=== PATIENT | female | born 1965 | race Caucasian/White ===

== ENCOUNTER 2018-08-03 00:14 | Emergency (ER) | payer BC, OTHER ==
[~2018-08-03] VITALS: Ht 172.7 cm; Wt 112.5 kg
[~2018-08-03 00:14] MED LIST: ALB0.5V INH; ALPR.25T PO; FLT05NA16 NSEACH; METH4TAB PO; [UNRECOGNIZED DRUG - OTHER]
[2018-08-03] MEDS ORDERED: methylPREDNISolone 125 MG (Solu-MEDROL) VIAL ONE (00:17)
[2018-08-03] MEDS ORDERED: RT-ALBUTEROL/IPRATROPIUM 3 ML (DUONEB) VIAL ONE (00:18)
[2018-08-03] MEDS ORDERED: RT-ALBUTEROL SULF 2.5 MG/3 ML PRE-MIX VIAL ONE (00:27)
[2018-08-03] MEDS ORDERED: methylPREDNISolone 125 MG (Solu-MEDROL) VIAL IVP ONE (00:30)
[2018-08-03] MEDS ORDERED: RT-ALBUTEROL/IPRATROPIUM 3 ML (DUONEB) VIAL INH ONE ×2 (00:30→00:35)
[2018-08-03] MEDS ORDERED: RT-ALBUTEROL SULF 2.5 MG/3 ML PRE-MIX VIAL INH ONE (00:35)
[2018-08-03 00:36] LABS: BASOPHILS # (AUTO) 0.1 10^3/uL (0.0-0.1); BASOPHILS % (AUTO) 1 % (0-10); EOSINOPHILS # (AUTO) 0.5 10^3/uL (0.0-0.3); EOSINOPHILS % (AUTO) 5 % (0-10); HEMATOCRIT 42 % (35-52); HEMOGLOBIN 14.7 G/DL (11.5-16.0); LYMPHOCYTES # (AUTO) 4.3 X 10^3 (1.0-4.0); LYMPHOCYTES % (AUTO) 44 % (12-44); MEAN CORPUSCULAR HEMOGLOBIN 31 PG (25-34); MEAN CORPUSCULAR HGB CONC 35 G/DL (32-36); MEAN CORPUSCULAR VOLUME 88 FL (80-99); MEAN PLATELET VOLUME 11.8 FL (7.4-10.4); MONOCYTES # (AUTO) 0.7 X 10^3 (0.0-1.0); MONOCYTES % (AUTO) 7 % (0-12); NEUTROPHILS # (AUTO) 4.4 X 10^3 (1.8-7.8); NEUTROPHILS % (AUTO) 44 % (42-75); PLATELET COUNT 240 10^3/uL (130-400); RED CELL DISTRIBUTION WIDTH 13.4 % (10.0-14.5); WHITE BLOOD COUNT 9.8 10^3/uL (4.3-11.0)
[2018-08-03 00:55] LABS: ALBUMIN 4.3 GM/DL (3.2-4.5); BILIRUBIN,TOTAL 0.3 MG/DL (0.1-1.0); CALCIUM 9.6 MG/DL (8.5-10.1); CREATININE SERUM 1.04 MG/DL (0.60-1.30); POTASSIUM 3.8 MMOL/L (3.6-5.0); TOTAL PROTEIN 7.4 GM/DL (6.4-8.2)
--- NOTE | 2018-08-03 02:11 | ED Respiratory ---
General Chief Complaint: Respiratory Problems Stated Complaint: ASTHMA ATTACK Nursing Triage Note: AMBULATORY TO ED ROOM 7 WITH C/O ASTHMA ATTACK. 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 Source: patient, family Exam Limitations: no limitations History of Present Illness Date Seen by Provider: Aug 03, 2018 Time Seen by Provider: 00:18 Initial Comments This 52-year-old woman presents to the emergency room with a severe asthma attack. She is in respiratory distress with wheezing and coughing. She tried an albuterol treatment at home as well as her rescue inhaler. This did not give her relief. She has required steroid treatments in the past. She reports taking a Medrol Dosepak within the past month. However, asthma symptoms flared up again within a couple days of stopping the steroids. She does not smoke. She uses Symbicort for maintenance. She denies any fever. Allergies and Home Medications Allergies Uncoded Allergies: dRUGS THAT AFFECT SERITONIN LEVELS (Allergy, Unknown, 10/15/05) Home Medications Alprazolam 0.25 Mg Tablet, 1 TAB PO TID PRN, (Reported) Fluticasone Propionate 16 Gm [place], 2 SPRAYS NSEACH DAILY, (Reported) Methylprednisolone 4 Mg/Dose-Pack Tab.ds.pk, 0 PO UD Prescribed by: KEON VELASCO on 10/08/09 174 Prednisone 20 Mg Tab, 20 MG PO DAILY Take 3 tabs(60mg)daily,decrease by 1/2 tab(10mg)every other day. Prescribed by: SHERIN FENG on 08/03/18 0214 Patient Home Medication List Home Medication List Reviewed: Yes Review of Systems Review of Systems Constitutional: no symptoms reported EENTM: no symptoms reported Respiratory: see HPI Cardiovascular: no symptoms reported Gastrointestinal: no symptoms reported Genitourinary: no symptoms reported Musculoskeletal: no symptoms reported Skin: no symptoms reported Psychiatric/Neurological: No Symptoms Reported Hematologic/Lymphatic: No Symptoms Reported Past Yseicnw-Yndnak-Iavrys Hx Past Med/Social Hx: Reviewed Nursing Past Med/Soc Hx Patient Social History Alcohol Use: Occasionally Uses Recreational Drug Use: No Smoking Status: Former Smoker Recent Foreign Travel: No Contact w/Someone Who Travel: No Recent Infectious Disease Expo: No Recent Hopitalizations: No Seasonal Allergies Seasonal Allergies: No Past Medical History Surgeries: Yes Hysterectomy Respiratory: Yes Asthma Cardiac: Yes Hypertension Neurological: No Genitourinary: No Gastrointestinal: No Musculoskeletal: Yes Rheumatoid Arthritis Endocrine: No HEENT: No Cancer: No Psychosocial: No Integumentary: No Blood Disorders: No Physical Exam Vital Signs - First Documented 08/03/18 08/03/18 00:18 00:26 Temp 97.8 Pulse 80 Resp 22 B/P (MAP) 155/104 (121) Pulse Ox 97 O2 Delivery Nasal Cannula O2 Flow Rate 3.00 Capillary Refill : Less Than 3 Seconds Height: 5'8" Weight: 248lbs. oz. 112.788762ab; BMI Method:Stated General Appearance: WD/WN, moderate distress HEENT: PERRL/EOMI, normal ENT inspection Neck: normal inspection Respiratory: respiratory distress, accessory muscle use, wheezing Cardiovascular: regular rate, rhythm, no edema, no murmur Gastrointestinal: non tender, soft Extremities: normal inspection, no pedal edema Neurologic/Psychiatric: production lead II-XII nml as tested, no motor/sensory deficits, alert, normal mood/affect, oriented x 3 Skin: normal color, warm/dry Progress/Results/Core Measures Suspected Sepsis Recent Fever Within 48 Hours: No Infection Criteria Present: None New/Unexplained Altered Menta: No Sepsis Screen: No Definite Risk SIRS Temperature:97.8 Pulse: 80 Respiratory Rate: 22 Laboratory Tests 08/03/18 00:22: White Blood Count 9.8 Blood Pressure 155 /104 Mean: 121 Laboratory Tests 08/03/18 00:22: Creatinine 1.04, Platelet Count 240, Total Bilirubin 0.3 Results/Orders Lab Results Laboratory Tests Test 08/03/18 00:22 Range/Units White Blood Count 9.8 4.3-11.0 10^3/uL Red Blood Count 4.76 4.35-5.85 10^6/uL Hemoglobin 14.7 11.5-16.0 G/DL Hematocrit 42 35-52 % Mean Corpuscular Volume 88 80-99 FL Mean Corpuscular Hemoglobin 31 25-34 PG Mean Corpuscular Hemoglobin Concent 35 32-36 G/DL Red Cell Distribution Width 13.4 10.0-14.5 % Platelet Count 240 130-400 10^3/uL Mean Platelet Volume 11.8 H 7.4-10.4 FL Neutrophils (%) (Auto) 44 42-75 % Lymphocytes (%) (Auto) 44 12-44 % Monocytes (%) (Auto) 7 0-12 % Eosinophils (%) (Auto) 5 0-10 % Basophils (%) (Auto) 1 0-10 % Neutrophils # (Auto) 4.4 1.8-7.8 X 10^3 Lymphocytes # (Auto) 4.3 H 1.0-4.0 X 10^3 Monocytes # (Auto) 0.7 0.0-1.0 X 10^3 Eosinophils # (Auto) 0.5 H 0.0-0.3 10^3/uL Basophils # (Auto) 0.1 0.0-0.1 10^3/uL Sodium Level 141 135-145 MMOL/L Potassium Level 3.8 3.6-5.0 MMOL/L Chloride Level 104 98-107 MMOL/L Carbon Dioxide Level 22 21-32 MMOL/L Anion Gap 15 H 5-14 MMOL/L Blood Urea Nitrogen 15 7-18 MG/DL Creatinine 1.04 0.60-1.30 MG/DL Estimat Glomerular Filtration Rate 56 BUN/Creatinine Ratio 14 Glucose Level 147 H 70-105 MG/DL Calcium Level 9.6 8.5-10.1 MG/DL Corrected Calcium 9.4 8.5-10.1 MG/DL Total Bilirubin 0.3 0.1-1.0 MG/DL Aspartate Amino Transf (AST/SGOT) 19 5-34 U/L Alanine Aminotransferase (ALT/SGPT) 24 0-55 U/L Alkaline Phosphatase 90 40-136 U/L C-Reactive Protein High Sensitivity 0.42 0.00-0.50 MG/DL Total Protein 7.4 6.4-8.2 GM/DL Albumin 4.3 3.2-4.5 GM/DL My Orders Orders - SHERIN GUTIÉRREZ MD Albuterol/Ipra Inhalation Soln (Duoneb I (08/03/18 00:30) Svn Small Volume Nebulizer (08/03/18 00:21) Methylprednisolone Sod Succ (Solu-Medrol (08/03/18 00:30) Ed Iv/Invasive Line Start (08/03/18 00:22) Cbc With Automated Diff (08/03/18 00:22) Comprehensive Metabolic Panel (08/03/18 00:22) Hs C Reactive Protein (08/03/18 00:22) Chest 1 View, Ap/Pa Only (08/03/18 00:22) Methylprednisolone Sod Succ (Solu-Medrol (08/03/18 00:17) Albuterol/Ipra Inhalation Soln (Duoneb I (08/03/18 00:18) Albuterol Pre-Mix Nebs (Rt) (Proventil (08/03/18 00:27) Albuterol Pre-Mix Nebs (Rt) (Proventil (08/03/18 00:35) Albuterol/Ipra Inhalation Soln (Duoneb I (08/03/18 00:35) Svn Small Volume Nebulizer (08/03/18 01:14) Medications Given in ED Current Medications Medications Dose Ordered Sig/Gadiel Route Start Time Stop Time Status Last Admin Dose Admin Albuterol Sulfate 12.5 mg ONCE ONCE INH 08/03/18 00:35 08/03/18 02:23 DC 08/03/18 00:32 12.5 MG Albuterol/ Ipratropium 3 ml ONCE ONCE INH 08/03/18 00:30 08/03/18 00:31 DC 08/03/18 00:26 3 ML Albuterol/ Ipratropium 3 ml ONCE ONCE INH 08/03/18 00:35 08/03/18 02:23 DC 08/03/18 00:32 3 ML Methylprednisolone Sodium Succinate 125 mg ONCE ONCE IVP 08/03/18 00:30 08/03/18 00:31 DC 08/03/18 00:24 125 MG Vital Signs/I&O 08/03/18 08/03/18 08/03/18 08/03/18 00:18 00:26 00:32 02:23 Temp 97.8 97.8 Pulse 80 75 Resp 22 22 B/P (MAP) 155/104 (121) 145/99 (114) Pulse Ox 97 97 98 O2 Delivery Nasal Cannula Nasal Cannula Room Air O2 Flow Rate 3.00 3.00 Capillary Refill : Less Than 3 Seconds 2 Blood Pressure Mean: 121 Progress Note : Progress Note Patient received a DuoNeb treatment which did not resolve her wheezing and dyspnea. Solu-Medrol was administered along with an hour-long nebulizer eliza atment. This resolved her asthma attack. Disposition was discussed. Patient like to return home. [place] lives near the [place] in [place] and can present there necessary. A higher dose steroid taper was prescribed. Diagnostic Imaging Diagonstic Imaging: Xray Plain Films/CT/US/NM/MRI: chest Comments Chest x-ray viewed by me. Report not yet available. No acute abnormalities appreciated. Departure Impression Primary Impression: Asthma exacerbation Qualified Codes: J45.901 - Unspecified asthma with (acute) exacerbation Disposition: HOME, SELF-CARE Condition: Improved Departure-Patient Inst. Decision time for Depature: 02:10 Referrals: AUDREY ROSSI MD (PCP) Primary Care Physician Patient Instructions: Asthma, Adult (DC) Add. Discharge Instructions: Pickup your prednisone prescription when the pharmacy opens this morning and take the first dose promptly. Continue using your nebulizer treatments as previously prescribed. Avoid any inhaled triggers that you are aware of. Return to the emergency room or call 911 if symptoms are escalating again. Follow-up with your primary care provider soon as possible. All discharge instructions reviewed with patient and/or family. Voiced understanding. Scripts Prednisone (Prednisone) 20 Mg Tab 20 MG PO DAILY, #22 TAB Take 3 tabs(60mg)daily,decrease by 1/2 tab(10mg)every other day. Prov: SHERIN GUTIÉRREZ MD 08/03/18 Copy Copies To 1: AUDREY ROSSI MD, JOSHUA T MD Aug 03, 2018 02:11
[2018-08-03] MEDS ORDERED: PRD20T PO (02:14)
[2018-08-03 02:23] VITALS: BP 145/99
--- NOTE | 2018-08-03 07:37 | Diagnostic Imaging Report ---
INDICATION: Asthmatic attack COMPARISON: 03/29/2012 The lung volumes are stable. Mild chronic elevation of the right diaphragm. No airway thickening or evidence for bronchiectasis. No pneumothorax or pneumomediastinum. The lungs are clear. There is no failure pattern. IMPRESSION: Unremarkable frontal chest stable from priors. Dictated by: Dictated on workstation # [id number]
== END 2018-08-03 02:23 | disposition home or self-care (01) ==
LOC: EDUNIT# 00:14 → ER 00:16
DX: J45.901 Unspecified asthma with (acute) exacerbation (principal); I10 Essential (primary) hypertension; M06.9 Rheumatoid arthritis, unspecified; Z88.8 Allergy status to other drugs, medicaments and biological substances; Z79.51 Long term (current) use of inhaled steroids; Z87.891 Personal history of nicotine dependence; Z90.710 Acquired absence of both cervix and uterus
CPT/HCPCS: 36415; 71045; 80053; 85025; 86141; 94640; 96374

== ENCOUNTER 2018-11-07 21:22 | Emergency (ER) | payer BC ==
[~2018-11-07] VITALS: Ht 172 cm; Wt 113.4 kg
[~2018-11-07 21:22] MED LIST changes: +PRD20T PO
[2018-11-07] MEDS ORDERED: NS IV 1000 ML 1,000 ML IV ONE (21:37)
[2018-11-07] MEDS ORDERED: RT-ALBUTEROL/IPRATROPIUM 3 ML (DUONEB) VIAL ONE (21:38)
[2018-11-07 21:45] LABS: BASOPHILS # (AUTO) 0.1 10^3/uL (0.0-0.1); BASOPHILS % (AUTO) 1 % (0-10); EOSINOPHILS # (AUTO) 0.3 10^3/uL (0.0-0.3); EOSINOPHILS % (AUTO) 4 % (0-10); HEMATOCRIT 44 % (35-52); HEMOGLOBIN 15.1 G/DL (11.5-16.0); LYMPHOCYTES # (AUTO) 1.8 X 10^3 (1.0-4.0); LYMPHOCYTES % (AUTO) 20 % (12-44); MEAN CORPUSCULAR HEMOGLOBIN 30 PG (25-34); MEAN CORPUSCULAR HGB CONC 35 G/DL (32-36); MEAN CORPUSCULAR VOLUME 87 FL (80-99); MEAN PLATELET VOLUME 11.8 FL (7.4-10.4); MONOCYTES # (AUTO) 0.3 X 10^3 (0.0-1.0); MONOCYTES % (AUTO) 3 % (0-12); NEUTROPHILS # (AUTO) 6.6 X 10^3 (1.8-7.8); NEUTROPHILS % (AUTO) 73 % (42-75); PLATELET COUNT 257 10^3/uL (130-400); RED CELL DISTRIBUTION WIDTH 13.2 % (10.0-14.5); WHITE BLOOD COUNT 9.1 10^3/uL (4.3-11.0)
[2018-11-07] MEDS ORDERED: RT-ALBUTEROL/IPRATROPIUM 3 ML (DUONEB) VIAL INH ONE (21:45)
[2018-11-07] MEDS ORDERED: MAGNESIUM 1 GM/100 ML IVPB 100 ML IV ONE (21:45)
[2018-11-07] MEDS ORDERED: methylPREDNISolone 125 MG (Solu-MEDROL) VIAL IVP ONE (21:45)
[2018-11-07 21:54] LABS: CALCIUM 9.3 MG/DL (8.5-10.1); CREATININE SERUM 1.21 MG/DL (0.60-1.30)
--- NOTE | 2018-11-07 22:06 | ED General ---
General Chief Complaint: Respiratory Problems Stated Complaint: SOB, ASHMA Nursing Triage Note: PATIENT C/O SOB WHILE AT REST, HX OF ASTHMA, STATES O2 SATURATION AT HOME WAS 92% Nursing Sepsis Screen: No Definite Risk Source of Information: Patient Exam Limitations: No Limitations History of Present Illness Date Seen by Provider: Nov 07, 2018 Time Seen by Provider: 21:31 Initial Comments This 53-year-old woman with asthma presents to the emergency room with exacerbation of asthma with shortness of breath and wheezing. She uses nebulizer albuterol treatments and has performed 3 treatments today. Her last treatment was at 16:00. She also used desonide 2 today. She denies any fever. She has had some cough. She reports feeling ill for couple of weeks. She started a prednisolone taper today. She took 30 mg. She does have a history of significant asthma problems. She does not smoke. Allergies and Home Medications Allergies Uncoded Allergies: dRUGS THAT AFFECT SERITONIN LEVELS (Allergy, Unknown, 10/15/05) Home Medications Alprazolam 0.25 Mg Tablet, 1 TAB PO TID PRN, (Reported) Fluticasone Propionate 16 Gm [place], 2 SPRAYS NSEACH DAILY, (Reported) Methylprednisolone 4 Mg/Dose-Pack Tab.ds.pk, 0 PO UD Prescribed by: KEON VELASCO on 10/08/09 1743 Prednisone 20 Mg Tab, 20 MG PO DAILY Take 3 tabs(60mg)daily,decrease by 1/2 tab(10mg)every other day. Prescribed by: SHERIN FENG on 08/03/18 0214 Patient Home Medication List Home Medication List Reviewed: Yes Review of Systems Review of Systems Constitutional: no symptoms reported; No fever EENTM: no symptoms reported Respiratory: cough (nonproductive), short of breath Cardiovascular: no symptoms reported Gastrointestinal: no symptoms reported Genitourinary: no symptoms reported : No Musculoskeletal: no symptoms reported Skin: no symptoms reported Psychiatric/Neurological: No Symptoms Reported Hematologic/Lymphatic: No Symptoms Reported Immunological/Allergic: no symptoms reported Past Yzgtiof-Cixvmd-Wcsfcu Hx Past Med/Social Hx: Reviewed and Corrections made Patient Social History Alcohol Use: Occasionally Uses Number of Drinks Today: 1 Recreational Drug Use: No Recent Foreign Travel: No Contact w/Someone Who Travel: No Recent Infectious Disease Expo: No Recent Hopitalizations: No Physical Abuse: No Sexual Abuse: No Mistreated: No Fear: No Seasonal Allergies Seasonal Allergies: No Past Medical History Surgeries: Yes Hysterectomy Respiratory: Yes Asthma Cardiac: Yes Hypertension Neurological: No : 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 oz. 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02 4.35-5.85 10^6/uL Hemoglobin 15.1 11.5-16.0 G/DL Hematocrit 44 35-52 % Mean Corpuscular Volume 87 80-99 FL Mean Corpuscular Hemoglobin 30 25-34 PG Mean Corpuscular Hemoglobin Concent 35 32-36 G/DL Red Cell Distribution Width 13.2 10.0-14.5 % Platelet Count 257 130-400 10^3/uL Mean Platelet Volume 11.8 H 7.4-10.4 FL Neutrophils (%) (Auto) 73 42-75 % Lymphocytes (%) (Auto) 20 12-44 % Monocytes (%) (Auto) 3 0-12 % Eosinophils (%) (Auto) 4 0-10 % Basophils (%) (Auto) 1 0-10 % Neutrophils # (Auto) 6.6 1.8-7.8 X 10^3 Lymphocytes # (Auto) 1.8 1.0-4.0 X 10^3 Monocytes # (Auto) 0.3 0.0-1.0 X 10^3 Eosinophils # (Auto) 0.3 0.0-0.3 10^3/uL Basophils # (Auto) 0.1 0.0-0.1 10^3/uL Sodium Level 140 135-145 MMOL/L Potassium Level 4.0 3.6-5.0 MMOL/L Chloride Level 107 98-107 MMOL/L Carbon Dioxide Level 23 21-32 MMOL/L Anion Gap 10 5-14 MMOL/L Blood Urea Nitrogen 14 7-18 MG/DL Creatinine 1.21 0.60-1.30 MG/DL Estimat Glomerular Filtration Rate 47 BUN/Creatinine Ratio 12 Glucose Level 119 H 70-105 MG/DL Calcium Level 9.3 8.5-10.1 MG/DL C-Reactive Protein High Sensitivity 0.58 H 0.00-0.50 MG/DL My Orders Orders - SHERIN GUTIÉRREZ MD Albuterol/Ipra Inhalation Soln (Duoneb I (11/07/18 21:45) Svn Small Volume Nebulizer (11/07/18 21:37) Basic Metabolic Panel (11/07/18 21:37) Cbc With Automated Diff (11/07/18 21:37) Hs C Reactive Protein (11/07/18 21:37) Chest Pa/Lat (2 View) (11/07/18 21:37) Methylprednisolone Sod Succ (Solu-Medrol (11/07/18 21:45) Magnesium 1 Gm/100 Ml Ivpb (Magnesium Tubbs (11/07/18 21:45) Ed Iv/Invasive Line Start (11/07/18 21:37) Ns Iv 1000 Ml (Sodium Chloride 0.9%) (11/07/18 21:37) Albuterol/Ipra Inhalation Soln (Duoneb I (11/07/18 21:38) Medications Given in ED Current Medications Medications Dose Ordered Sig/Gadiel Route Start Time Stop Time Status Last Admin Dose Admin Albuterol/ Ipratropium 3 ml ONCE ONCE INH 11/07/18 21:45 11/07/18 21:46 DC 11/07/18 21:40 6 ML Magnesium Sulfate/ Dextrose 100 ml @ 100 mls/hr ONCE ONCE IV 11/07/18 21:45 11/07/18 22:44 DC 11/07/18 21:53 100 MLS/HR Methylprednisolone Sodium Succinate 125 mg ONCE ONCE IVP 11/07/18 21:45 11/07/18 21:46 DC 11/07/18 21:53 125 MG Sodium Chloride 1,000 ml @ 0 mls/hr Q0M ONCE IV 11/07/18 21:37 11/07/18 21:40 DC 11/07/18 21:53 1,000 MLS/HR Vital Signs/I&O 11/07/18 11/07/18 11/07/18 21:22 21:43 23:27 Temp 36.8 36.8 Pulse 84 105 Resp 22 20 B/P (MAP) 163/92 (115) 144/92 (115) Pulse Ox 94 97 93 O2 Delivery Room Air Room Air Capillary Refill : Less Than 3 Seconds Blood Pressure Mean: 115 Progress Note : Progress Note Patient received a Solu-Medrol injection and a DuoNeb treatment. Chest received a liter of IV fluid and 1 g of IV magnesium. This improved her symptoms significantly. Chest x-ray showed no evidence of pneumonia. Diagnostic Imaging Diagonstic Imaging: Xray Plain Films/CT/US/NM/MRI: chest Comments Chest x-ray viewed by me. Report not yet available. No acute abnormality appreciated. Departure Impression Primary Impression: Asthma exacerbation Qualified Codes: J45.901 - Unspecified asthma with (acute) exacerbation Disposition: HOME, SELF-CARE Condition: Improved Departure-Patient Inst. Decision time for Depature: 23:10 Referrals: AUDREY ROSSI MD (PCP/Family) Primary Care Physician Patient Instructions: Asthma, Adult (DC) Add. Discharge Instructions: Drink plenty of clear liquids. Use your nebulizer treatments up to every 4 hours as needed. Exercise deep breathing during the breathing treatments. Start with day 2 of your steroid taper tomorrow. Follow-up with your primary care provider as soon as possible. Consider referral to a rn medicare such as Dr. Yang. Consider adding a long-acting nondrowsy antihistamine such as Claritin (loratadine) or Zyrtec (cetirizine). Return to the emergency room if you have worsening symptoms not controlled by your medications. All discharge instructions reviewed with patient and/or family. Voiced understanding. Copy Copies To 1: AUDREY ROSSI MD, JOSHUA T MD Nov 07, 2018 22:05
[2018-11-07 23:27] VITALS: BP 144/92
--- NOTE | 2018-11-08 08:16 | Diagnostic Imaging Report ---
INDICATION: Dyspnea. PA and lateral views of the chest are obtained with comparison made to study of 08/03/2018. FINDINGS: Heart size and pulmonary vascularity are within normal limits, and the lungs are clear, bilaterally. IMPRESSION: Unremarkable chest. Dictated by: Dictated on workstation # [id number]
== END 2018-11-07 23:27 | disposition home or self-care (01) ==
LOC: EDUNIT# 21:22 → ER 21:24
DX: J45.901 Unspecified asthma with (acute) exacerbation (principal); I10 Essential (primary) hypertension; M06.9 Rheumatoid arthritis, unspecified; Z90.710 Acquired absence of both cervix and uterus; Z88.8 Allergy status to other drugs, medicaments and biological substances; Z79.51 Long term (current) use of inhaled steroids; Z79.52 Long term (current) use of systemic steroids
CPT/HCPCS: 36415; 71046; 80048; 85025; 86141; 94640

== ENCOUNTER 2019-04-13 21:11 | Inpatient (IN) | payer SELFPAY ==
[~2019-04-13] VITALS: Ht 175 cm; Wt 118.0 kg
[2019-04-13] MEDS ORDERED: ANTACID SUSP 30 ML UDC (MYLANTA) PO PRN (21:30)
[2019-04-13] MEDS ORDERED: BISACODYL 10 MG SUPP (DULCOLAX) PR PRN (21:30)
[2019-04-13] MEDS ORDERED: ACETAMINOPHEN 325 MG TABLET PO PRN (21:30)
[2019-04-13] MEDS ORDERED: MELATONIN 3 MG TABLET PO PRN (21:30)
[2019-04-13] MEDS ORDERED: ONDANSETRON 4 MG/2 ML (SDV) Z0FRAN IV PRN (21:30)
[2019-04-13] MEDS ORDERED: ENOXAPARIN 40 MG/0.4 ML (LOVENOX) SYR SC SCH (21:30)
[2019-04-13] MEDS ORDERED: ONDANSETRON 4 MG (ZOFRAN) ORAL DISSOLVE TAB PO PRN (21:30)
[2019-04-13] MEDS ORDERED: polyethylene glycoL POWDER 17 GM (MIRALAX) PACK PO PRN (21:30)
[2019-04-13 23:00] VITALS: BP 104/75
[2019-04-13] MEDS: cefTRIAXone FOR IV USE 2,000 MG in WATER (STERILE) FOR INJECTION 20 ML IV SCH (23:09)
--- NOTE | 2019-04-13 23:09 | NUR ---
ROCEPHIN GIVEN IN [facility]
[2019-04-13 23:28] LABS: BASOPHILS % (AUTO) 0 % (0-10); EOSINOPHILS # (AUTO) 0.1 10^3/uL (0.0-0.3); EOSINOPHILS % (AUTO) 0 % (0-10); HEMATOCRIT 39 % (35-52); HEMOGLOBIN 13.3 G/DL (11.5-16.0); LYMPHOCYTES # (AUTO) 1.3 X 10^3 (1.0-4.0); LYMPHOCYTES % (AUTO) 7 % (12-44); MEAN CORPUSCULAR HEMOGLOBIN 30 PG (25-34); MEAN CORPUSCULAR HGB CONC 34 G/DL (32-36); MEAN CORPUSCULAR VOLUME 90 FL (80-99); MEAN PLATELET VOLUME 12.2 FL (7.4-10.4); MONOCYTES # (AUTO) 1.4 X 10^3 (0.0-1.0); MONOCYTES % (AUTO) 8 % (0-12); NEUTROPHILS # (AUTO) 15.3 X 10^3 (1.8-7.8); NEUTROPHILS % (AUTO) 84 % (42-75); PLATELET COUNT 199 10^3/uL (130-400); RED CELL DISTRIBUTION WIDTH 13.1 % (10.0-14.5); WHITE BLOOD COUNT 18.1 10^3/uL (4.3-11.0)
[2019-04-13 23:30] VITALS: BP 103/76
--- NOTE | 2019-04-13 23:30 | NUR ---
PATIENT C/O OF SHARP PAIN 10/10 IN LEFT SHOULDER RADIATING TO MID-LEFT CHEST AND BACK. PATIENT STATES "IT MAKES IT DIFFICULT TO BREATH." EICU NOTIFIED-SEE ORDER HX. WILL CONTINUE TO MONITOR.
[2019-04-13] MEDS: LACTATED RINGERS 1,000 ML IV SCH (23:33)
[2019-04-13] MEDS: methylPREDNISolone 40 MG/ML (Solu-MEDROL) VIAL IV SCH (23:41)
[2019-04-13] MEDS: diphenhydrAMINE 50 MG/ML INJ (BENADRYL) IVP PRN (23:42)
[2019-04-13 23:45] VITALS: BP 117/67
[2019-04-13 23:51] LABS: CREATININE SERUM 1.53 MG/DL (0.60-1.30); MAGNESIUM 1.7 MG/DL (1.6-2.4); PHOSPHORUS 2.8 MG/DL (2.3-4.7); POTASSIUM 3.8 MMOL/L (3.6-5.0)
[2019-04-14] VITALS (24 sets, daily range): BP systolic 116–160; BP diastolic 67–100
[2019-04-14 00:12] LABS: BAND NEUTROPHILS 10 %; EOSINOPHILS % (MANUAL) 2 %; LYMPHOCYTES % (MANUAL) 7 %; MONOCYTES % (MANUAL) 5 %; NEUTROPHILS % (MANUAL) 76 %; RBC MORPH NORMAL
--- NOTE | 2019-04-14 00:17 | NUR ---
PT STATED THAT SHE HADN'T URINATED SINCE 7PM OF 04/12. THIS RN INSERTED [place], URINE RETURN OF 5ML OF DARK CONCENTRATED URINE. NOTIFIED E-ICU. WILL CONTINUE TO MONITOR.
[2019-04-14] MEDS ORDERED: LACTATED RINGERS 1,000 ML IV SCH (00:30)
[2019-04-14] MEDS ORDERED: RT-ALBUTEROL/IPRATROPIUM 3 ML (DUONEB) VIAL IH PRN ×2 (00:45→01:53)
[2019-04-14] MEDS: RT-ALBUTEROL/IPRATROPIUM 3 ML (DUONEB) VIAL INH SCH ×4 (02:00→20:51)
[2019-04-14 02:16] LABS: CLARITY,URINE CLOUDY; COLOR,URINE AMBER; GLUCOSE, URINE (UA) NEGATIVE (NEGATIVE); KETONES,URINE TRACE (NEGATIVE); LEUKOCYTE ESTERASE ,URINE NEGATIVE (NEGATIVE); NITRITE,URINE NEGATIVE (NEGATIVE); PH,URINE 5.5 (5-9); PROTEIN,URINE 1+ (NEGATIVE)
[2019-04-14 02:35] LABS: BACTERIA,URINE FEW /HPF; BILIRUBIN,URINE 1+ (NEGATIVE); WBC,URINE 0-2 /HPF
[2019-04-14] MEDS ORDERED: RT-ALBUTEROL/IPRATROPIUM 3 ML (DUONEB) VIAL IH SCH (03:00)
[2019-04-14 04:02] LABS: BASOPHILS % (AUTO) 0 % (0-10); EOSINOPHILS # (AUTO) 0.1 10^3/uL (0.0-0.3); EOSINOPHILS % (AUTO) 1 % (0-10); HEMATOCRIT 39 % (35-52); LYMPHOCYTES # (AUTO) 0.9 X 10^3 (1.0-4.0); LYMPHOCYTES % (AUTO) 4 % (12-44); MEAN CORPUSCULAR HEMOGLOBIN 30 PG (25-34); MEAN CORPUSCULAR HGB CONC 33 G/DL (32-36); MEAN CORPUSCULAR VOLUME 90 FL (80-99); MEAN PLATELET VOLUME 12.4 FL (7.4-10.4); MONOCYTES # (AUTO) 1.6 X 10^3 (0.0-1.0); MONOCYTES % (AUTO) 7 % (0-12); NEUTROPHILS # (AUTO) 18.3 X 10^3 (1.8-7.8); NEUTROPHILS % (AUTO) 88 % (42-75); PLATELET COUNT 191 10^3/uL (130-400); RED CELL DISTRIBUTION WIDTH 13.3 % (10.0-14.5); WHITE BLOOD COUNT 20.9 10^3/uL (4.3-11.0)
[2019-04-14 04:29] LABS: CALCIUM 8.9 MG/DL (8.5-10.1); CREATININE SERUM 1.27 MG/DL (0.60-1.30); MAGNESIUM 1.6 MG/DL (1.6-2.4); PHOSPHORUS 3.7 MG/DL (2.3-4.7); POTASSIUM 4.4 MMOL/L (3.6-5.0)
[2019-04-14] MEDS: POTASSIUM CL 10MEQ/50ML IVPB 50 ML IV SCH (05:14)
[2019-04-14] MEDS: MAGNESIUM 1 GM/100 ML IVPB 100 ML IV SCH ×3 (05:15→06:39)
[2019-04-14] MEDS: inSUlin ASPART (NovoLOG) 1 UNIT/0.01 ML (CHARGE PER UNIT) SC SCH ×5 (05:16→21:07)
[2019-04-14] MEDS: KCL 20 MEQ TAB (K-DUR) PO SCH (05:16)
[2019-04-14] MEDS: LACTATED RINGERS 1,000 ML IV SCH ×7 (05:30→21:07)
[2019-04-14] MEDS: methylPREDNISolone 40 MG/ML (Solu-MEDROL) VIAL IV SCH ×4 (05:31→16:54)
[2019-04-14] MEDS: ENOXAPARIN 40 MG/0.4 ML (LOVENOX) SYR SC SCH (05:31)
--- NOTE | 2019-04-14 05:46 | Pulmonary Consultation ---
History of Present Illness History of Present Illness Date Seen by Provider: Apr 14, 2019 Time Seen by Provider: 05:59 Date of Admission Allergies and Home Medications Allergies Uncoded Allergies: dRUGS THAT AFFECT SERITONIN LEVELS (Allergy, Unknown, 10/15/05) Home Medications Alprazolam 0.25 Mg Tablet, 1 TAB PO TID PRN, (Reported) Fluticasone Propionate 16 Gm [place], 2 SPRAYS NSEACH DAILY, (Reported) Methylprednisolone 4 Mg/Dose-Pack Tab.ds.pk, 0 PO UD Prescribed by: KEON VELASCO on 10/08/09 174 Prednisone 20 Mg Tab, 20 MG PO DAILY Take 3 tabs(60mg)daily,decrease by 1/2 tab(10mg)every other day. 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 oz. 112.692163lr; 38.53 BMI Method:Stated Exam Exam Vital Signs Date Time Temp Pulse Resp B/P (MAP) Pulse Ox O2 Delivery O2 Flow Rate FiO2 04/14/19 05:00 112 12 129/92 (104) 95 OxyMask 5.00 04/14/19 04:47 OxyMask 5.00 04/14/19 04:41 OxyMask 3.00 04/14/19 04:00 93 Nasal Cannula 2.00 04/14/19 04:00 36.3 04/14/19 04:00 109 16 135/100 (112) 93 Nasal Cannula 1.00 04/14/19 03:00 101 17 122/91 (101) 91 Nasal Cannula 1.00 04/14/19 02:10 Nasal Cannula 1.00 04/14/19 02:00 110 25 143/94 (110) 93 Nasal Cannula 2.00 3/7/20 02:00 94 Nasal Cannula 1.00 04/14/19 01:00 113 20 117/74 (88) 93 Nasal Cannula 2.00 04/14/19 01:00 115 04/14/19 00:00 115 15 122/75 (91) 94 Nasal Cannula 2.00 04/13/19 23:45 121 20 117/67 (84) 94 Nasal Cannula 2.00 04/13/19 23:30 117 20 103/76 (85) 95 Nasal Cannula 2.00 04/13/19 23:24 111 04/13/19 23:00 Nasal Cannula 2.00 04/13/19 23:00 Nasal Cannula 2.00 04/13/19 23:00 36.9 110 12 104/75 (85) 93 Nasal Cannula 2.00 I & O 04/14/19 07:00 Intake Total 1300 ml Output Total 140 ml Balance 1160 ml Height & Weight Height: 5'8" Weight: 248lbs. oz. 112.917444fx; 38.53 BMI Method:Stated Results Lab Laboratory Tests 04/13/19 23:18 04/14/19 03:43 Assessment/Plan Assessment/Plan Left PNA with sepsis with pleuritis -Continue Rocephin and azithromycin -check MRSA swab -Influenza - neg at cylinder - Repeat -[place] O cultures -IVF -Change Oxy mask to Vapotherm CP secondary to pleuritis -Troponin is negative -Add Tordol Asthma -Continue DuoNebs -Decrease solumedrol to 40mg Q 6 -Add claritin and singulair Hives - started prior to Abx -Solumedrol - continue -Add pepcid and continue Benadryl -IVF Sinus tach with dark concentrated urine -Give another liter of IVF LR -Monitor Hx RA - She is not taking anything for RA currently TL KRAMER DO Apr 14, 2019 05:46
[2019-04-14] MEDS ORDERED: fentaNYL INJECTION 100 MCG/2 ML AMP IVP PRN (06:00)
[2019-04-14] MEDS: ALPRAZolam 0.5 MG (XANAX) TAB PO PRN (06:13)
[2019-04-14] MEDS: diphenhydrAMINE 50 MG/ML INJ (BENADRYL) IVP PRN (06:13)
[2019-04-14 06:30] LABS: AMPHETAMINE SCREEN, URINE NEGATIVE (NEGATIVE); BARBITURATE SCREEN URINE NEGATIVE (NEGATIVE); BENZODIAZEPINES SCREEN URINE NEGATIVE (NEGATIVE); CANNABINOID SCREEN, URINE NEGATIVE (NEGATIVE); COCAINE SCREEN URINE NEGATIVE (NEGATIVE); METHADONE STAT NEGATIVE (NEGATIVE); METHAMPHETAMINE SCREEN URINE S NEGATIVE (NEGATIVE); OPIATE SCREEN URINE NEGATIVE (NEGATIVE); OXYCODONE STAT NEGATIVE (NEGATIVE); PROPOXYPHENE STAT NEGATIVE (NEGATIVE); TRICYCLIC ANTIDEPRESSANTS SCRE NEGATIVE (NEGATIVE)
[2019-04-14] MEDS ORDERED: FLU QUADRIvalent (5+ YOA) 2019-2020 (AFLURIA) 0.5 ML IM ONE (07:15)
[2019-04-14] MEDS: LORATADINE (CLARITIN) 10 MG TAB PO SCH (08:00)
[2019-04-14] MEDS: AZITHROMYCIN 250 MG TAB (ZITHROMAX) PO SCH (08:00)
[2019-04-14] MEDS: KETOROLAC 15 MG/ML VIAL IVP PRN ×2 (08:01→15:42)
[2019-04-14] MEDS: FAMOTIDINE 20MG/2ML IV (PEPCID) IVP SCH ×2 (08:01→21:05)
[2019-04-14] MEDS: MONTELUKAST 10 MG (SINGULAIR) TAB PO SCH (08:01)
--- NOTE | 2019-04-14 08:14 | Diagnostic Imaging Report ---
INDICATION: Dyspnea. Comparison is made with prior examination from 11/07/2018. FINDINGS: There is a left basilar pneumonia. Heart size is normal. Mediastinum is unremarkable. There is no pneumothorax. IMPRESSION: Left basilar infiltrate suspect for pneumonia. Dictated by: Dictated on workstation # [id number]
--- NOTE | 2019-04-14 13:21 | History & Physical-Hospitalist ---
History of Present Illness HPI/Chief Complaint Chika Guadarrama is a 53-year-old female with past medical history of asthma, anxiety, obesity, who presented as a transfer from [place] with severe sepsis due to pneumonia. She reports that she had been feeling very short of breath. She also reports fevers and chills. She reports rigors. She reports nausea. She has had a cough. She developed a rash with hives prior to presenting. She reports pleuritic chest pain. She has pain on the left side with every breath she takes. Source: patient Exam Limitations: no limitations Date Seen 04/14/19 Time Seen by a Provider: 08:50 Attending Physician Nikki Levy MD PCP Amarjit Mart MD Referring Physician Date of Admission Apr 13, 2019 at 22:52 Home Medications & Allergies Home Medications Reviewed patient Home Medication Reconciliation performed by pharmacy medication reconciliations ground source heat pump technician and/or nursing. Patients Allergies have been reviewed. Allergies Allergies Uncoded Allergies dRUGS THAT AFFECT SERITONIN LEVELS ( Allergy, Unknown, 10/15/05) Past Pstgzme-Gculzp-Fzouob Hx Past Med/Social Hx: Reviewed Nursing Past Med/Soc Hx Patient Social History Recent Foreign Travel: No Contact w/other who traveled: Yes Recent Hopitalizations: No Recent Infectious Disease Expo: No Seasonal Allergies Seasonal Allergies: No Past Medical History Surgeries: Hysterectomy Cardiac: Hypertension Hysterectomy Musculoskeletal: Rheumatoid Arthritis History of Blood Disorders: No Review of Systems Constitutional: chills, diaphoresis, fever, malaise, weakness Respiratory: cough, short of breath Cardiovascular: chest pain Gastrointestinal: nausea Genitourinary: no symptoms reported Musculoskeletal: neck pain Skin: rash Psychiatric/Neurological: No Symptoms Reported Physical Exam Physical Exam Vital Signs Vital Signs - First Documented 04/14/19 06:45 FiO2 40 Capillary Refill : Less Than 3 Seconds Height, Weight, BMI Height: 5'8" Weight: 248lbs. oz. 112.958840ag; 38.53 BMI Method:Stated General Appearance: Anxious, Moderate Distress, Obese HEENT: PERRL/EOMI, Pharynx Normal Neck: Normal Inspection, Supple Respiratory: Crackles, Respiratory Distress (Tachypnea) Cardiovascular: No Edema, No Murmur, Tachycardia (Regular rhythm) Gastrointestinal: Normal Bowel Sounds, Non Tender, Soft Extremity: Normal Inspection, Non Tender, No Pedal Edema Neurologic/Psychiatric: Alert, Oriented x3, No Motor/Sensory Deficits Skin: Normal Color, Warm/Dry Results Results/Procedures Labs Laboratory Tests 04/13/19 23:18 04/14/19 03:43 Patient resulted labs reviewed. Imaging: Reviewed Imaging Report Assessment/Plan Admission Diagnosis Severe sepsis Admission Status: Inpatient Order (span 2 midnights) Reason for Inpatient Admission: Severe sepsis due to pneumonia requiring supplemental oxygen and IV antibiotics Assessment and Plan Severe sepsis Community acquired pneumonia Lactic acidosis Acute kidney injury Hives Asthma Transferred from [place] Elevated WBC, tachycardic Chest x-ray with left lower lobe pneumonia Blood cultures drawn in [place] prior to transfer Started on ceftriaxone and azithromycin Currently on Vapotherm Lactic acidosis resolved Creatinine 1.53 on arrival, improving this morning 1.27 Continue IV fluids Started on IV steroids, continue Rash improving Obtain CT chest for further evaluation of severe hypoxia and pleuritic chest pain Pulmonology consulted, appreciate assistance DVT prophylaxis: Lovenox Diagnosis/Problems Diagnosis/Problems (1) Severe sepsis Status: Acute (2) Community acquired pneumonia Status: Acute Qualifiers: Laterality: left Lung location: lower lobe of lung Qualified Codes: J18.1 - Lobar pneumonia, unspecified organism (3) Lactic acidosis Status: Resolved Resolution Date/Time: 04/14/19 @ 13:26 (4) Acute kidney injury Status: Acute (5) Hives Status: Acute (6) Asthma Status: Chronic Clinical Quality Measures DVT/VTE Risk/Contraindication: Risk Factor Score Per Nursin RFS Level Per Nursing on Admit: 4+=Very High NIKKI LEVY MD Apr 14, 2019 13:21
[2019-04-14] MEDS ORDERED: IOHEXOL 350 MG/ML 100 ML (OMNIPAQUE 350) VIAL IV ONE (13:30)
[2019-04-14] MEDS ORDERED: NS 100 ML (IVPB) BAG IV ONE (13:30)
[2019-04-14] MEDS ORDERED: HOLD METFORMIN - RECEIVED CONTRAST 20 ML VIAL IV SCH (13:30)
--- NOTE | 2019-04-14 14:26 | Diagnostic Imaging Report ---
PROCEDURE: CT angiography of the chest with contrast. TECHNIQUE: Multiple contiguous axial images were obtained through the chest after uneventful bolus administration of intravenous contrast. 3D reconstructed CTA MIP acquisitions were also performed. Auto Exposure Controls were utilized during the CT exam to meet ALARA standards for radiation dose reduction. INDICATION: Respiratory failure with hypoxia. FINDINGS: There is a left basilar pneumonia. There is a left pleural effusion. There is also pneumonia in the lingula. There is minimal subsegmental atelectasis and/or pneumonitis in the right lung base. There is no pneumothorax. The thoracic aorta is normal in caliber and without evidence of dissection. The evaluation for pulmonary embolism is somewhat limited due to suboptimal bolus timing. No definitive filling defects are seen within the pulmonary arteries to suggest pulmonary embolism. There are a few subcentimeter lymph nodes in the AP window. There is marked fatty infiltration of the liver. There is also hepatomegaly. Gallbladder is surgically absent. There is no biliary ductal dilatation. The remainder of the intra-abdominal structures are unremarkable. There are degenerative changes in the spine. IMPRESSION: No evidence of aortic dissection or pulmonary embolism. Extensive lingular and left basilar pneumonia with left pleural effusion. Hepatomegaly and fatty infiltration of the liver. Minimal right basilar subsegmental atelectasis and/or pneumonitis. Dictated by: Dictated on workstation # [id number]
--- NOTE | 2019-04-14 14:40 | NUR ---
THIS NURSE NOTIFIED DR KRAMER PT IS SOA, WITH LABORED BREATHING. HER VAPOTHERM IS NOW ON 40L/50%. RR ARE IN THE HIGH 30S. PT HEART RATE IS IN THE 120-140S. PT IS LETHARGIC. ORDERS GIVEN FOR ABG NOW AND BIPAP PRN. [address] KRAMER OF ABG RESULTS. ORDERS TO KEEP PT 02 SATURATIONS ABOVE 90% ON VAPOTHERM, AND TO NOTIFY E-ICU IS PT IS REQUIRING BIPAP.
[2019-04-14 15:08] LABS: ABG BASE EXCESS -1.4 MMOL/L (-2.5-2.5); ABG OXYGEN SATURATION 92 % (94-100); ABG PCO2 43 MMHG (35-45); ABG PH 7.35 (7.37-7.43); ABG PO2 68 MMHG (79-93); ABG TCO2 24.5 MMOL/L (21.0-31.0)
[2019-04-14 15:09] LABS: ALLENS TEST YES-POS
[2019-04-14 15:10] LABS: INSPIRED O2 40; PATIENT TEMP 37.8; VENTILATOR NO
[2019-04-14] MEDS: cefTRIAXone FOR IV USE 2,000 MG in WATER (STERILE) FOR INJECTION 20 ML IV SCH (21:06)
[2019-04-15] VITALS (21 sets, daily range): BP systolic 139–169; BP diastolic 80–102
[2019-04-15] MEDS: methylPREDNISolone 40 MG/ML (Solu-MEDROL) VIAL IV SCH ×4 (00:52→16:56)
[2019-04-15] MEDS: RT-ALBUTEROL/IPRATROPIUM 3 ML (DUONEB) VIAL INH SCH (03:12)
[2019-04-15] MEDS: KETOROLAC 15 MG/ML VIAL IVP PRN ×3 (03:22→22:12)
[2019-04-15] MEDS: ALPRAZolam 0.5 MG (XANAX) TAB PO PRN ×2 (03:24→22:11)
[2019-04-15] MEDS ORDERED: RT-ALBUTEROL/IPRATROPIUM 3 ML (DUONEB) VIAL INH PRN (03:30)
[2019-04-15 03:50] LABS: BASOPHILS % (AUTO) 0 % (0-10); EOSINOPHILS % (AUTO) 0 % (0-10); HEMATOCRIT 36 % (35-52); HEMOGLOBIN 11.8 G/DL (11.5-16.0); LYMPHOCYTES # (AUTO) 1.6 X 10^3 (1.0-4.0); LYMPHOCYTES % (AUTO) 6 % (12-44); MEAN CORPUSCULAR HEMOGLOBIN 29 PG (25-34); MEAN CORPUSCULAR HGB CONC 32 G/DL (32-36); MEAN CORPUSCULAR VOLUME 91 FL (80-99); MEAN PLATELET VOLUME 12.3 FL (7.4-10.4); MONOCYTES # (AUTO) 1.7 X 10^3 (0.0-1.0); MONOCYTES % (AUTO) 6 % (0-12); NEUTROPHILS # (AUTO) 23.3 X 10^3 (1.8-7.8); NEUTROPHILS % (AUTO) 88 % (42-75); PLATELET COUNT 238 10^3/uL (130-400); RED CELL DISTRIBUTION WIDTH 13.5 % (10.0-14.5); WHITE BLOOD COUNT 26.6 10^3/uL (4.3-11.0)
[2019-04-15 04:06] LABS: CALCIUM 9.3 MG/DL (8.5-10.1); CREATININE SERUM 0.98 MG/DL (0.60-1.30); MAGNESIUM 2.4 MG/DL (1.6-2.4); PHOSPHORUS 3.6 MG/DL (2.3-4.7); POTASSIUM 4.5 MMOL/L (3.6-5.0)
[2019-04-15] MEDS: LACTATED RINGERS 1,000 ML IV SCH ×3 (05:34→23:42)
[2019-04-15] MEDS: POTASSIUM CL 10MEQ/50ML IVPB 50 ML IV SCH (06:36)
[2019-04-15] MEDS: MAGNESIUM 1 GM/100 ML IVPB 100 ML IV SCH (06:36)
[2019-04-15] MEDS: KCL 20 MEQ TAB (K-DUR) PO SCH (06:37)
[2019-04-15] MEDS: ENOXAPARIN 40 MG/0.4 ML (LOVENOX) SYR SC SCH (06:45)
--- NOTE | 2019-04-15 07:14 | Pulmonary Progress Note ---
Subjective Time Seen by a Provider: 08:07 Sepsis Event Evaluation Height, Weight, BMI Height: 5'8" Weight: 248lbs. oz. 112.753125pz; 38.53 BMI Method:Stated Focused Exam Lactate Level 04/13/19 23:18: Lactic Acid Level 1.66 Exam Exam Vital Signs Date Time Temp Pulse Resp B/P (MAP) Pulse Ox O2 Delivery O2 Flow Rate FiO2 04/15/19 06:00 105 23 144/91 (108) 94 Vapotherm 60.00 04/15/19 05:00 112 22 139/89 (106) 94 Vapotherm 60.00 04/15/19 05:00 35.9 04/15/19 04:00 90 Vapotherm 40.00 40 04/15/19 04:00 112 19 150/92 (111) 94 Vapotherm 60.00 04/15/19 03:48 Vapotherm 60.00 04/15/19 03:22 93 Vapotherm 60 04/15/19 03:13 NIV Bilevel 45.00 04/15/19 03:13 112 33 97 60.00 04/15/19 03:00 112 25 95 NIV Bilevel 65.00 04/15/19 01:00 112 24 160/100 (120) 94 NIV Bilevel 65.00 04/15/19 00:57 112 04/15/19 00:00 120 24 169/96 (120) 95 NIV Bilevel 65.00 04/15/19 00:00 36.0 04/15/19 00:00 90 NIV CPAP 65 04/14/19 23:00 122 22 160/93 (115) 94 NIV Bilevel 65.00 04/14/19 22:15 126 24 98 60.00 04/14/19 22:10 NIV Bilevel 65.00 04/14/19 22:00 131 27 145/87 (106) 94 Vapotherm 40.00 60.00 04/14/19 21:55 37.6 04/14/19 21:00 123 22 147/87 (107) 92 Vapotherm 40.00 60.00 04/14/19 20:51 93 Vapotherm 40.00 50 04/14/19 20:00 90 Vapotherm 40.00 40 04/14/19 20:00 124 16 122/67 (85) 93 Vapotherm 40.00 60.00 04/14/19 19:00 125 25 140/91 (107) 90 Vapotherm 40.00 60.00 04/14/19 18:59 125 04/14/19 18:00 130 31 142/81 (101) 91 Vapotherm 40.00 60.00 04/14/19 17:00 135 18 121/84 (96) 92 Vapotherm 40.00 60.00 04/14/19 16:00 138 28 132/71 (91) 91 Vapotherm 40.00 60.00 04/14/19 15:49 90 Vapotherm 40.00 60 04/14/19 15:00 140 27 145/80 (101) 90 Vapotherm 40.00 60.00 04/14/19 14:40 89 Vapotherm 40.00 50 04/14/19 14:20 Vapotherm 40.00 50.00 04/14/19 14:00 134 36 138/92 (107) 91 Vapotherm 40.00 40.00 04/14/19 14:00 37.8 04/14/19 13:00 126 31 141/85 (103) 92 Vapotherm 40.00 40.00 04/14/19 12:31 121 04/14/19 12:00 37.4 04/14/19 12:00 124 22 119/68 (85) 92 Vapotherm 40.00 40.00 04/14/19 12:00 90 Vapotherm 40.00 40 04/14/19 11:23 Vapotherm 40.00 40.00 04/14/19 11:19 94 Vapotherm 40.00 40 04/14/19 11:00 107 20 127/87 (100) 90 Vapotherm 35.00 40.00 04/14/19 10:00 104 15 127/76 (93) 92 Vapotherm 35.00 40.00 04/14/19 09:42 Vapotherm 30.00 40.00 04/14/19 09:00 115 29 127/68 (87) 92 Vapotherm 20.00 40.00 04/14/19 08:00 90 Vapotherm 25.00 40 04/14/19 08:00 37.1 04/14/19 08:00 118 35 122/75 (91) 91 Vapotherm 20.00 40.00 I & O 04/15/19 07:00 Intake Total 3200 ml Output Total 1405 ml Balance 1795 ml Height & Weight Height: 5'8" Weight: 248lbs. oz. 112.127023xj; 38.53 BMI Method:Stated General Appearance: Anxious, Moderate Distress, Obese HEENT: PERRL/EOMI, Pharynx Normal Neck: Normal Inspection, Supple Respiratory: Crackles, Respiratory Distress (Tachypnea) Cardiovascular: No Edema, No Murmur, Tachycardia (Regular rhythm) Capillary Refill: Less Than 3 Seconds Extremity: Normal Inspection, Non Tender, No Pedal Edema Neurologic/Psychiatric: Alert, Oriented x3, No Motor/Sensory Deficits Skin: Normal Color, Warm/Dry Results Lab Laboratory Tests 04/13/19 23:18 04/14/19 03:43 04/15/19 03:30 Assessment/Plan Assessment/Plan Left PNA with sepsis with pleuritis -Continue Rocephin and azithromycin -Repeat PCT -check MRSA swab -Influenza - neg at [facility] - Repeat -[place] cultures -IVF -Change Oxy mask to Vapotherm CP secondary to pleuritis -Troponin is negative -Tordol Asthma -Continue DuoNebs -Decrease solumedrol to 40mg Q 6 -Add claritin and singulair Hives - started prior to Abx -Solumedrol - continue -Add pepcid and continue Benadryl -IVF Sinus tach with dark concentrated urine -Give another liter of IVF LR -Monitor Hx RA - She is not taking anything for RA currently TL KRAMER DO Apr 15, 2019 07:14
[2019-04-15] MEDS: RT-ALBUTEROL/IPRATROPIUM 3 ML (DUONEB) VIAL IH SCH ×5 (07:16→22:05)
[2019-04-15] MEDS: LORATADINE (CLARITIN) 10 MG TAB PO SCH (07:47)
[2019-04-15] MEDS: MONTELUKAST 10 MG (SINGULAIR) TAB PO SCH (07:49)
[2019-04-15] MEDS: FAMOTIDINE 20MG/2ML IV (PEPCID) IVP SCH ×2 (07:49→22:11)
[2019-04-15] MEDS: AZITHROMYCIN 250 MG TAB (ZITHROMAX) PO SCH (07:49)
[2019-04-15] MEDS: inSUlin ASPART (NovoLOG) 1 UNIT/0.01 ML (CHARGE PER UNIT) SC SCH ×4 (07:49→22:10)
[2019-04-15] MEDS ORDERED: CEFEPIME INJECTION 2,000 MG in WATER (STERILE) FOR INJECTION 20 ML IV ONE (09:45)
[2019-04-15] MEDS ORDERED: VANCOMYCIN INJECTION 0.1 MG in NS (IVPB) 250 ML IV SCH (09:45)
--- NOTE | 2019-04-15 09:55 | NUR ---
PTD Vancomycin - Loading dose of 2gm over 2 hours, then 1250mg every 8 hours. Trough on 04/15.
[2019-04-15] MEDS ORDERED: VANCOMYCIN 2000 MG/NS 500 ML IVPB IV NR ×2 (10:00)
[2019-04-15] MEDS: guaiFENesin/DM (ROBITUSSIN DM) 10 ML UDC PO PRN ×2 (10:53→22:22)
--- NOTE | 2019-04-15 10:53 | Diagnostic Imaging Report ---
EXAMINATION: Chest radiograph, portable AP view. DATE: 04/15/2019 4:31 AM hours. INDICATION: 53-year-old female, dyspnea. COMPARISON: CT chest April 14, 2019. Chest radiograph April 14, 2019. FINDINGS: There is airspace consolidation in the left mid and lower lung zone which is unchanged. Stable overall appearance of the cardiomediastinal silhouette. There is no identified pneumothorax. IMPRESSION: 1. Unchanged nonspecific airspace consolidation in the left mid and lower lung zone. This may reflect infiltrate, effusion, and/or atelectasis. Dictated by: Dictated on workstation # [id number]
[2019-04-15] MEDS: CEFEPIME INJECTION 1,000 MG in WATER (STERILE) FOR INJECTION 10 ML IV SCH ×2 (11:50→16:55)
--- NOTE | 2019-04-15 14:12 | Progress Note - Hospitalist ---
Subjective HPI/CC On Admission Date Seen by Provider: Apr 15, 2019 Time Seen by Provider: 09:50 Chika Guadarrama is a 53-year-old female with past medical history of asthma, anxiety, obesity, who presented as a transfer from [place] with severe sepsis due to pneumonia. She reports that she had been feeling very short of breath. She also reports fevers and chills. She reports rigors. She reports nausea. She has had a cough. She developed a rash with hives prior to presenting. She reports pleuritic chest pain. She has pain on the left side with every breath she takes. Subjective/Events-last exam She reports feeling a bit better this morning. She still feels short of breath. She has not had any fevers or chills overnight. She continues to have a cough. She denies any abdominal pain, nausea, or vomiting. She continues to have chest pain with inspiration. Focused Exam Lactate Level 04/13/19 23:18: Lactic Acid Level 1.66 Objective Exam Vital Signs Vital Signs Date Time Temp Pulse Resp B/P (MAP) Pulse Ox O2 Delivery O2 Flow Rate FiO2 04/15/19 12:00 124 26 161/92 (115) 93 Vapotherm 40.00 40.00 04/15/19 12:00 40 04/15/19 11:50 36.4 Capillary Refill : Less Than 3 Seconds General Appearance: No Apparent Distress, Obese Respiratory: No Accessory Muscle Use, No Respiratory Distress, Crackles Cardiovascular: No Edema, No Murmur, Tachycardia (Regular rhythm) Gastrointestinal: Normal Bowel Sounds, Non Tender, Soft Extremity: Normal Inspection, Non Tender, No Pedal Edema Neurologic/Psychiatric: Alert, Oriented x3, No Motor/Sensory Deficits, Normal Mood/Affect Skin: Normal Color, Warm/Dry Results/Procedures Lab Laboratory Tests 04/15/19 03:30 Patient resulted labs reviewed. Imaging: Reviewed Imaging Report Assessment/Plan Assessment and Plan Assess & Plan/Chief Complaint Severe sepsis Community acquired pneumonia Acute respiratory failure with hypoxia Asthma WBC increasing, procalcitonin increasing Requiring Vapotherm CT chest with left lingular consolidation with parapneumonic effusion Outside blood cultures with no growth to date per [facility] in [place] Started on ceftriaxone and azithromycin With worsening clinical picture, transition to vancomycin and cefepime Continue IV fluids Continue steroids Pulmonology consulted, appreciate assistance Morbid obesity Clinically significant, no acute management needs DVT prophylaxis: Lovenox Lactic acidosis, resolved Acute kidney injury, resolved Hives, resolved Diagnosis/Problems Diagnosis/Problems (1) Severe sepsis Status: Acute (2) Community acquired pneumonia Status: Acute Qualifiers: Laterality: left Lung location: lower lobe of lung Qualified Codes: J18.1 - Lobar pneumonia, unspecified organism (3) Lactic acidosis Status: Resolved Resolution Date/Time: 04/14/19 @ 13:26 (4) Acute kidney injury Status: Resolved Resolution Date/Time: 04/15/19 @ 14:11 (5) Hives Status: Resolved Resolution Date/Time: 04/15/19 @ 14:11 (6) Asthma Status: Chronic (7) Morbid obesity (8) Acute respiratory failure with hypoxia Clinical Quality Measures DVT/VTE Risk/Contraindication: Risk Factor Score Per Nursin RFS Level Per Nursing on Admit: 4+=Very High RICHY LEVY MD Apr 15, 2019 14:12
[2019-04-15] MEDS ORDERED: DOCUSATE SODIUM 100 MG (COLACE) CAP PO ONE (14:15)
[2019-04-15] MEDS ORDERED: SENNA W/DOCUSATE (SENOKOT S) TABLET PO ONE (14:15)
[2019-04-15] MEDS: FLUTICASONE NASAL SPRAY (FLONASE) 16 GM BTL NS SCH (14:53)
[2019-04-15] MEDS: VANCOMYCIN 1250 MG/NS 250 ML IVPB IV SCH ×2 (16:56)
[2019-04-15] MEDS: DOCUSATE SODIUM 100 MG (COLACE) CAP PO SCH (22:10)
[2019-04-15] MEDS: diphenhydrAMINE 25 MG TAB (BENADRYL) PO PRN (22:10)
[2019-04-15] MEDS: SENNA W/DOCUSATE (SENOKOT S) TABLET PO SCH (22:11)
[2019-04-16] VITALS (25 sets, daily range): BP systolic 141–200; BP diastolic 83–149
[2019-04-16] MEDS: CEFEPIME INJECTION 1,000 MG in WATER (STERILE) FOR INJECTION 10 ML IV SCH ×5 (00:53→23:24)
[2019-04-16] MEDS: methylPREDNISolone 40 MG/ML (Solu-MEDROL) VIAL IV SCH ×2 (00:53→08:07)
[2019-04-16] MEDS: LACTATED RINGERS 1,000 ML IV SCH ×3 (02:24→21:11)
[2019-04-16] MEDS: VANCOMYCIN 1250 MG/NS 250 ML IVPB IV SCH ×6 (02:24→17:26)
[2019-04-16] MEDS: RT-ALBUTEROL/IPRATROPIUM 3 ML (DUONEB) VIAL IH SCH ×6 (03:25→21:21)
[2019-04-16] MEDS: MAGNESIUM 1 GM/100 ML IVPB 100 ML IV SCH (03:34)
[2019-04-16] MEDS: POTASSIUM CL 10MEQ/50ML IVPB 50 ML IV SCH (03:34)
[2019-04-16] MEDS: KCL 20 MEQ TAB (K-DUR) PO SCH (03:35)
[2019-04-16 03:55] LABS: BASOPHILS % (AUTO) 0 % (0-10); EOSINOPHILS % (AUTO) 0 % (0-10); HEMATOCRIT 35 % (35-52); HEMOGLOBIN 11.7 G/DL (11.5-16.0); LYMPHOCYTES # (AUTO) 1.4 X 10^3 (1.0-4.0); LYMPHOCYTES % (AUTO) 6 % (12-44); MEAN CORPUSCULAR HEMOGLOBIN 30 PG (25-34); MEAN CORPUSCULAR HGB CONC 33 G/DL (32-36); MEAN CORPUSCULAR VOLUME 91 FL (80-99); MEAN PLATELET VOLUME 12.5 FL (7.4-10.4); MONOCYTES # (AUTO) 1.3 X 10^3 (0.0-1.0); MONOCYTES % (AUTO) 6 % (0-12); NEUTROPHILS # (AUTO) 20.6 X 10^3 (1.8-7.8); NEUTROPHILS % (AUTO) 88 % (42-75); PLATELET COUNT 234 10^3/uL (130-400); WHITE BLOOD COUNT 23.3 10^3/uL (4.3-11.0)
[2019-04-16 04:11] LABS: BUN/CREATININE RATIO 24; CALCIUM 9.4 MG/DL (8.5-10.1); CARBON DIOXIDE 24 MMOL/L (21-32); CHLORIDE 103 MMOL/L (98-107); CREATININE SERUM 0.86 MG/DL (0.60-1.30); GFR ESTIMATED > 60; GLUCOSE 258 MG/DL (70-105); MAGNESIUM 2.7 MG/DL (1.6-2.4); POTASSIUM 4.3 MMOL/L (3.6-5.0); SODIUM 137 MMOL/L (135-145)
[2019-04-16] MEDS ORDERED: DexMEDEtomidine 250 ML DRIP 250 ML IV ONE (06:01)
[2019-04-16] MEDS ORDERED: MIDAZOLAM 5 MG/5 ML (VERSED) VIAL ONE (06:01)
[2019-04-16] MEDS ORDERED: fentaNYL INJECTION 100 MCG/2 ML AMP ONE ×2 (06:01→07:01)
[2019-04-16 06:23] LABS: ALANINE AMINOTRANSFERASE 28 U/L (0-55); ALBUMIN 3.2 GM/DL (3.2-4.5); ALKALINE PHOSPHATASE 86 U/L (40-136); BILIRUBIN,TOTAL 0.3 MG/DL (0.1-1.0); BUN/CREATININE RATIO 25; CALCIUM 9.4 MG/DL (8.5-10.1); CARBON DIOXIDE 24 MMOL/L (21-32); CHLORIDE 102 MMOL/L (98-107); CREATININE SERUM 0.88 MG/DL (0.60-1.30); GFR ESTIMATED > 60; GLUCOSE 275 MG/DL (70-105); POTASSIUM 3.8 MMOL/L (3.6-5.0); SODIUM 137 MMOL/L (135-145); TOTAL PROTEIN 6.6 GM/DL (6.4-8.2)
[2019-04-16] MEDS ORDERED: LIDOCAINE 1% INJ 20 ML 20 ML VIAL ONE ×2 (06:30→06:42)
--- NOTE | 2019-04-16 07:00 | NUR ---
TIMELINE NOTE: 0530: THIS RN AND DR. KRAMER DISCUSSING PT'S CONDITION AT THIS TIME. DR. KRAMER REVIEWING PT'S CHEST X-RAY AND NOTED PNEUMOTHORAX TO PT'S LEFT LUNG. STAT CT ORDERED AND PATIENT TAKEN TO CT BY LEAD TECHNICAL ARCHITECT AND COUNSELOR CAMP. 0545: LEFT SIDED PNEUMOTHORAX NOTED ON PT'S CT PER DR. KRAMER, AND STAT CHEST TUBE RECOMMENDED. DR. KRAMER AT BEDSIDE TO DISCUSS PT'S CONDITION, AND CT FINDINGS WITH PT AND HER . ALL QUESTIONS ANSWERED AND CONSENT SIGNED. PT'S O2 ON VAPO-THERM INCREASED TO 40 L AND 100% FIO2 PER DR. KRAMER. 0600: PRECEDEX DRIP STARTED AT 1.[address] KRAMER. 0615: 250 MCG OF IV FENTANYL AND 5 MG OF IV VERSED ADMINISTERED DURING PROCEDURE. 0620: RADIOLOGIST CALLED WITH CRITICAL FINDING; DISCUSSED WITH DR. KRAMER. 0625: LA 2.75; DR. KRAMER NOTIFIED AND NEW ORDER RECEIVED FOR 1 L LR BOLUS AT THIS TIME. 0707: CHEST TUBE IN AND CONNECTED TO LOW WALL SUCTION AT THIS TIME; X-RAY HERE TO CONFIRM PLACEMENT. BED IS IN LOWEST POSITION AND CALL LIGHT IS WITHIN REACH.
--- NOTE | 2019-04-16 07:04 | Diagnostic Imaging Report ---
PROCEDURE: CT chest without contrast. TECHNIQUE: Multiple contiguous axial images were obtained through the chest without the use of intravenous contrast. Auto Exposure Controls were utilized during the CT exam to meet ALARA standards for radiation dose reduction. INDICATION: Dyspnea. Abnormal chest radiograph. COMPARISON: CT dated 04/14/2019 FINDINGS: Since the previous exam, there has been interval development of large left-sided hydropneumothorax. As a result, there is increased atelectasis involving both the left upper and lower lobes. Evaluation of the left upper lobe again demonstrates dense consolidation of the lingula admixed with areas of rounded lucency concerning for cavitation. Findings could be on the basis of bronchopleural fistula. There is no large effusion or pneumothorax on the right. Evaluation of the lung sarah on the right is degraded by motion artifact, but no other cavitary lesions are seen. Cardiomediastinal structures show normal heart size. There is no large pericardial effusion. No abnormal mediastinal or axillary adenopathy is seen. Evaluation for hilar adenopathy is suboptimal given lack of intravenous contrast. Osseous structures show no acute abnormalities. No lytic or blastic lesions are seen. Included portions of the upper abdomen show a hypodense appearance to the liver consistent with hepatic steatosis. IMPRESSION: 1. Interval development of moderate left-sided hydropneumothorax. 2. Reidentification of dense consolidation of the left upper lobe. Note is, however, also made of multiple areas of well-circumscribed lucency concerning for cavitary infection or mass. Interval development of left-sided hydropneumothorax may be on the basis of underlying bronchopleural fistula. 3. Hepatic steatosis. Results were called to patient's nurse in the ICU by Dr. Jaquez at 0700 hours on 04/16/2019. Dictated by: Dictated on workstation # [id number]
--- NOTE | 2019-04-16 07:11 | Diagnostic Imaging Report ---
INDICATION: Dyspnea COMPARISON: 04/15/2019 FINDINGS: Single frontal radiographic view of the chest was obtained and demonstrates interval development of large left-sided pneumothorax. Cardiomediastinal silhouette is heavily obscured, but cardiomediastinal structures remain midline. Right lung is relatively clear. No large effusion or pneumothorax seen on the right. Osseous structures show no acute abnormalities. IMPRESSION: 1. Interval development of large left-sided pneumothorax. This was identified by the patient's primary care team and subsequently treated prior to dictation of this exam. Dictated by: Dictated on workstation # [id number]
[2019-04-16] MEDS ORDERED: fentaNYL INJECTION 100 MCG/2 ML AMP IVP PRN (08:00)
[2019-04-16] MEDS ORDERED: MIDAZOLAM 5 MG/5 ML (VERSED) VIAL IVP ONE (08:00)
[2019-04-16] MEDS ORDERED: LACTATED RINGERS 1,000 ML IV SCH (08:00)
[2019-04-16] MEDS ORDERED: LACTATED RINGERS 1,000 ML IV ONE (08:00)
[2019-04-16] MEDS: ENOXAPARIN 40 MG/0.4 ML (LOVENOX) SYR SC SCH (08:01)
[2019-04-16] MEDS: inSUlin ASPART (NovoLOG) 1 UNIT/0.01 ML (CHARGE PER UNIT) SC SCH ×7 (08:07→20:37)
--- NOTE | 2019-04-16 08:08 | Progress Note - Hospitalist ---
Subjective HPI/CC On Admission Date Seen by Provider: Apr 16, 2019 Time Seen by Provider: 08:03 Chika Guadarrama is a 53-year-old female with past medical history of asthma, anxiety, obesity, who presented as a transfer from [place] with severe sepsis due to pneumonia. She reports that she had been feeling very short of breath. She also reports fevers and chills. She reports rigors. She reports nausea. She has had a cough. She developed a rash with hives prior to presenting. She reports pleuritic chest pain. She has pain on the left side with every breath she takes. Subjective/Events-last exam Pt is quite sedate following chest tube placement. at beside. No complaints or concerns at this time. Focused Exam Lactate Level 04/13/19 23:18: Lactic Acid Level 1.66 04/16/19 05:50: Lactic Acid Level 2.76*H Lactic Acid Level Laboratory Tests Test 04/16/19 05:50 Lactic Acid Level 2.76 MMOL/L (0.50-2.00) *H Objective Exam Vital Signs Vital Signs Date Time Temp Pulse Resp B/P (MAP) Pulse Ox O2 Delivery O2 Flow Rate FiO2 04/16/19 07:47 36.6 04/16/19 06:00 108 30 187/123 (144) 93 Vapotherm 40.00 50.00 04/16/19 04:00 40 Capillary Refill : Less Than 3 Seconds General Appearance: No Apparent Distress, Obese, Other (drowsy) Respiratory: No Respiratory Distress, Other (bilateral breath sounds, chest tube in place) Cardiovascular: Regular Rate, Rhythm, No Murmur Gastrointestinal: Normal Bowel Sounds, Soft Neurologic/Psychiatric: Other (drowsy but arouses to verbal stimuli easily) Results/Procedures Lab Laboratory Tests 04/16/19 03:20 04/16/19 05:50 Patient resulted labs reviewed. Imaging: Reviewed Imaging Report Assessment/Plan Assessment and Plan Assess & Plan/Chief Complaint Severe sepsis Community acquired pneumonia Acute respiratory failure with hypoxia Spontaneous Pneumothorax Asthma WBC trended down slightly today - Chest tube placed by Dr Yang this AM Remains on Vapotherm CT chest with left lingular consolidation with parapneumonic effusion Outside blood cultures with no growth to date per [facility] in [place] Continue on vancomycin and cefepime Continue steroids Pulmonology consulted, appreciate assistance Lactic acidosis - Worse this AM - Bolus ordered - Trend - No hypotension Hyperglycemia -SSI -likely due to steroids Morbid obesity Clinically significant, no acute management needs DVT prophylaxis: Lovenox Acute kidney injury, resolved Hives, resolved Diagnosis/Problems Diagnosis/Problems (1) Essential (primary) hypertension Status: Chronic (2) Spontaneous pneumothorax Status: Acute (3) Acute respiratory failure with hypoxia Status: Acute (4) Acute kidney injury Status: Resolved Resolution Date/Time: 04/15/19 @ 14:11 (5) Hives Status: Resolved Resolution Date/Time: 04/15/19 @ 14:11 (6) Morbid obesity (7) Severe sepsis Status: Acute (8) Community acquired pneumonia Status: Acute Qualifiers: Laterality: left Lung location: lower lobe of lung Qualified Codes: J18. 1 - Lobar pneumonia, unspecified organism (9) Lactic acidosis Status: Resolved Resolution Date/Time: 04/14/19 @ 13:26 (10) Asthma Status: Chronic Qualifiers: Asthma severity: moderate Asthma persistence: persistent Asthma complication type: uncomplicated Qualified Codes: J45.40 - Moderate persistent asthma, uncomplicated (11) Hyperglycemia Status: Acute Clinical Quality Measures DVT/VTE Risk/Contraindication: Risk Factor Score Per Nursin RFS Level Per Nursing on Admit: 4+=Very High JONATHAN DANGELO MD Apr 16, 2019 08:08
[2019-04-16] MEDS ORDERED: DexMEDEtomidine 250 ML DRIP 250 ML IV SCH (08:15)
[2019-04-16] MEDS: MONTELUKAST 10 MG (SINGULAIR) TAB PO SCH (08:21)
[2019-04-16] MEDS: SENNA W/DOCUSATE (SENOKOT S) TABLET PO SCH ×2 (08:21→20:25)
[2019-04-16] MEDS: FLUTICASONE NASAL SPRAY (FLONASE) 16 GM BTL NS SCH (08:22)
[2019-04-16] MEDS: LORATADINE (CLARITIN) 10 MG TAB PO SCH (08:22)
[2019-04-16] MEDS: DOCUSATE SODIUM 100 MG (COLACE) CAP PO SCH ×2 (08:22→20:25)
[2019-04-16] MEDS: FAMOTIDINE 20MG/2ML IV (PEPCID) IVP SCH ×2 (08:24→20:25)
--- NOTE | 2019-04-16 08:26 | Diagnostic Imaging Report ---
INDICATION: Left pneumothorax Portable chest 0756 There continues to be a left pneumothorax with near complete left lower lobe atelectasis. There appears to be a thoracostomy tube projecting over the left lower chest. Right lung remains clear. IMPRESSION: There appears to have been interval placement of a left thoracostomy tube. There has been no appreciable change in the left pneumothorax or left lung atelectasis. Dictated by: Dictated on workstation # [id number]
--- NOTE | 2019-04-16 09:02 | NUR ---
PATIENT DID NOT GET HER 0600 SVN BREATHING TX DUE TO HER HAVING A PROCEDURE DONE WHEN RT CAME TO THE PATIENTS ROOM AND JUST GOT BACK SO MED WAS NON-ADMINISTERED
--- NOTE | 2019-04-16 11:20 | NUR ---
Pastoral care visit, pt was asleep, will monitor.
[2019-04-16] MEDS: diphenhydrAMINE 25 MG TAB (BENADRYL) PO PRN ×2 (12:26→17:27)
[2019-04-16] MEDS: KETOROLAC 15 MG/ML VIAL IVP PRN ×3 (12:26→23:24)
[2019-04-16] MEDS ORDERED: MELO15TA39 PO (13:43)
[2019-04-16] MEDS ORDERED: ALBU2.5V4 NEB (13:43)
[2019-04-16] MEDS ORDERED: OXYM15MI4 NSEACH (13:51)
[2019-04-16] MEDS ORDERED: MONT10TA26 PO (13:51)
[2019-04-16] MEDS ORDERED: FLUT9.9S NS (13:51)
[2019-04-16] MEDS ORDERED: LORA10TA76 PO (13:51)
--- NOTE | 2019-04-16 14:15 | NUR ---
SPOKE WITH THE PT, WENT THRU THE EXT MED HIST AND CALLED TY TO COMPLETE THE MED REC 03-13-2019 M[place]EL[place] 10MG #30/30DS PT INDICATES THIS IS THE ONLY MAINTENANCE SCRIPT SHE TAKES. SHE WAS PREVIOUSLY ON BYSTOLIC (THIS IS SHOWN ON THE EXT MED HIST) BUT DUE TO COST SHE HAS NOT BEEN TAKING IT. OTC MEDS: LINDA ZENGITIN
--- NOTE | 2019-04-16 16:24 | Diagnostic Imaging Report ---
Indication: Left pneumothorax Portable chest 4:07 PM The left pneumothorax is been partially evacuated. There is a 2 cm pneumothorax remaining at the apex. Left upper lobe is been re-aerated. There continues be some left lower lobe atelectasis. IMPRESSION: Resolving left pneumothorax. There continues be some left basilar atelectasis. Dictated by: Dictated on workstation # [id number]
[2019-04-16] MEDS ORDERED: TROUGH ORDER-PHARMACY XX NR (16:30)
--- NOTE | 2019-04-16 16:39 | Pulmonary Progress Note ---
Subjective Time Seen by a Provider: 16:39 Subjective/Events-last exam Pt is having more SOB. Sepsis Event Evaluation Height, Weight, BMI Height: 5'8" Weight: 248lbs. oz. 112.246527da; 38.53 BMI Method:Stated Focused Exam Lactate Level 04/13/19 23:18: Lactic Acid Level 1.66 04/16/19 05:50: Lactic Acid Level 2.76*H 04/16/19 07:55: Lactic Acid Level 1.02 Exam Exam Vital Signs Date Time Temp Pulse Resp B/P (MAP) Pulse Ox O2 Delivery O2 Flow Rate FiO2 04/16/19 14:39 94 Vapotherm 20.00 45 04/16/19 14:00 114 41 99 Vapotherm 20.00 45.00 04/16/19 13:00 110 16 153/86 (108) 95 Vapotherm 20.00 45.00 04/16/19 13:00 112 04/16/19 12:50 Vapotherm 20.00 45.00 04/16/19 12:00 106 36 159/90 (113) 93 Vapotherm 40.00 60.00 04/16/19 12:00 93 Vapotherm 70.00 40 04/16/19 11:14 36.6 04/16/19 11:12 92 Vapotherm 40.00 60 04/16/19 11:00 80 27 143/83 (103) 91 Vapotherm 40.00 60.00 04/16/19 10:00 79 26 145/89 (107) 90 Vapotherm 40.00 60.00 04/16/19 09:00 89 27 145/94 (111) 92 Vapotherm 40.00 60.00 04/16/19 08:15 108 187/123 04/16/19 08:00 89 32 179/120 (139) 93 Vapotherm 40.00 60.00 04/16/19 08:00 93 Vapotherm 70.00 40 04/16/19 07:47 36.6 04/16/19 07:00 88 31 169/120 (136) 91 Vapotherm 40.00 60.00 04/16/19 07:00 88 04/16/19 06:00 108 30 187/123 (144) 93 Vapotherm 40.00 50.00 04/16/19 05:00 111 25 166/120 (135) 89 Vapotherm 40.00 50.00 04/16/19 04:00 94 Vapotherm 40.00 40 04/16/19 04:00 105 22 147/94 (111) 90 Vapotherm 40.00 50.00 04/16/19 03:25 92 Vapotherm 40.00 50 04/16/19 03:00 102 20 164/110 (128) 93 Vapotherm 40.00 50.00 04/16/19 02:00 109 23 144/94 (111) 92 Vapotherm 40.00 50.00 04/16/19 01:00 111 22 141/95 (110) 90 Vapotherm 40.00 50.00 04/16/19 01:00 111 04/16/19 00:55 36.1 04/16/19 00:00 94 Vapotherm 40.00 40 04/16/19 00:00 121 23 147/102 (117) 92 Vapotherm 40.00 50.00 04/15/19 23:30 122 28 151/97 (115) 93 Vapotherm 40.00 50.00 04/15/19 22:15 124 33 93 Vapotherm 40.00 50.00 04/15/19 22:05 92 Vapotherm 40.00 50 04/15/19 22:00 121 34 150/99 (116) 89 Vapotherm 40.00 40.00 04/15/19 21:00 117 156/98 (117) 91 Vapotherm 40.00 40.00 04/15/19 20:00 94 Vapotherm 40.00 40 04/15/19 20:00 122 17 161/100 (120) 93 Vapotherm 40.00 40.00 04/15/19 20:00 36.3 04/15/19 19:21 92 Vapotherm 40.00 40 04/15/19 19:00 113 04/15/19 19:00 113 31 157/100 (119) 94 Vapotherm 40.00 40.00 04/15/19 18:00 108 13 156/97 (116) 92 Vapotherm 40.00 40.00 04/15/19 17:00 112 19 157/91 (113) 92 Vapotherm 40.00 40.00 I & O 04/16/19 07:00 Intake Total 1450 ml Output Total 2125 ml Balance -675 ml Height & Weight Height: 5'8" Weight: 248lbs. oz. 112.595833zh; 38.53 BMI Method:Stated General Appearance: Anxious, Moderate Distress, Obese HEENT: PERRL/EOMI, Pharynx Normal Neck: Normal Inspection, Supple Respiratory: Crackles, Respiratory Distress (Tachypnea) Cardiovascular: No Edema, No Murmur, Tachycardia (Regular rhythm) Capillary Refill: Less Than 3 Seconds Extremity: Normal Inspection, Non Tender, No Pedal Edema Neurologic/Psychiatric: Alert, Oriented x3, No Motor/Sensory Deficits Skin: Normal Color, Warm/Dry Results Lab Laboratory Tests 04/15/19 03:30 04/16/19 03:20 04/16/19 05:50 Assessment/Plan Assessment/Plan Left PNA with sepsis with pleuritis -Continue Rocephin and azithromycin -Repeat PCT -check MRSA swab -Influenza - neg at [place] - Repeat -[place] O cultures -IVF -Change Oxy mask to Vapotherm New spontaneous PTX -Place chest tube CP secondary to pleuritis -Troponin is negative -Tordol Asthma -Continue DuoNebs -Decrease solumedrol to 40mg Q 6 -Add claritin and singulair Hives - started prior to Abx -Solumedrol - continue -Add pepcid and continue Benadryl -IVF Sinus tach with dark concentrated urine -Give another liter of IVF LR -Monitor Hx RA - She is not taking anything for RA currently TL KRAMER DO Apr 16, 2019 16:39
--- NOTE | 2019-04-16 16:40 | Pulmonary Procedures ---
Pulmonary Procedures Date of Procedure Date of Service: Apr 16, 2019 Chest Tube : Chest Tube Position: Left (28 Canadian) Chest Tube Location: Mid-Axillary Chest Size of Canadian Tube (cm): 28 Chest Tube Procedure: betadine prep, sterile drapes applied, sterile dressing applied Anesthesia: 1% Lidocaine Volume Anesthetic (ccs): 10 Faustin of Air Edmunds: Yes Number of Attempts: 1 Tube Drainage: see nurses notes Tube Sutured to Skin: Yes Post Procedure CXR?: Yes TL KRAMER DO Apr 16, 2019 16:40
--- NOTE | 2019-04-16 21:25 | NUR ---
PT HAS BEEN RUNNING HYPERTENSIVE, LAST PRESSURE READ AT 199/119. PT DENIES ANY PAIN OR DISCOMFORT AT THIS TIME. E-ICU NOTIFIED.
[2019-04-16] MEDS ORDERED: LABETALOL HCL 20 MG/4 ML VIAL IV PRN (21:45)
[2019-04-17] VITALS (26 sets, daily range): BP systolic 143–195; BP diastolic 89–116
[2019-04-17] MEDS: VANCOMYCIN 1250 MG/NS 250 ML IVPB IV SCH ×2 (01:53)
[2019-04-17] MEDS: RT-ALBUTEROL/IPRATROPIUM 3 ML (DUONEB) VIAL IH SCH ×6 (02:14→21:38)
[2019-04-17] MEDS: ALPRAZolam 0.5 MG (XANAX) TAB PO PRN (03:13)
--- NOTE | 2019-04-17 03:42 | Pulmonary Progress Note ---
CHRISTIANO CONDE MEDICAL STUDENT 04/17/19 0342: Subjective Date Seen by a Provider: Apr 17, 2019 Time Seen by a Provider: 03:22 Subjective/Events-last exam Pt resting comfortably, sleeping at bedside. Pt reports easier breathing since chest tube was placed yesterday morning. She now notices "gurgles" from her left side when she breaths. She states her pleuritic chest pain has been well controlled with Toradol. Denies new concerns. Review of Systems General: No Chills, No Night Sweats HEENT: No Head Aches, No Visual Changes Pulmonary: No Dyspnea; Cough; No Pleuritic Chest Pain Cardiovascular: No: Palpitations, Edema Gastrointestinal: No: Nausea, Constipation Genitourinary: No Dysuria, No Frequency Neurological: No: Weakness, Confusion Sepsis Event Evaluation Height, Weight, BMI Height: 5'8" Weight: 248lbs. oz. 112.236471ui; 38.53 BMI Method:Stated Focused Exam Lactate Level 04/16/19 05:50: Lactic Acid Level 2.76*H 04/16/19 07:55: Lactic Acid Level 1.02 Exam Exam Vital Signs Date Time Temp Pulse Resp B/P (MAP) Pulse Ox O2 Delivery O2 Flow Rate FiO2 04/17/19 02:14 94 Nasal Cannula 5.00 04/17/19 02:00 101 15 188/116 (140) 93 Nasal Cannula 4.00 04/17/19 01:00 101 32 171/99 (123) 94 Nasal Cannula 4.00 04/17/19 01:00 101 04/17/19 00:00 104 32 189/112 (137) 94 Nasal Cannula 4.00 04/17/19 00:00 Nasal Cannula 4.00 04/16/19 23:00 97 31 200/116 (144) 91 Nasal Cannula 4.00 04/16/19 22:00 98 175/103 (127) 91 Nasal Cannula 4.00 04/16/19 21:58 104 26 198/121 (146) 92 Nasal Cannula 4.00 04/16/19 21:23 106 24 98 Nasal Cannula 4.00 04/16/19 21:22 97 Nasal Cannula 5.00 04/16/19 21:00 96 199/119 (145) 95 Nasal Cannula 5.00 04/16/19 20:43 99 26 171/105 (127) 99 Nasal Cannula 5.00 04/16/19 20:00 Nasal Cannula 4.00 04/16/19 20:00 108 23 183/121 (141) 100 Nasal Cannula 5.00 04/16/19 19:00 107 31 173/149 (157) 100 Nasal Cannula 5.00 04/16/19 19:00 107 04/16/19 18:52 100 Nasal Cannula 5.00 04/16/19 18:00 108 29 182/109 (133) 99 Nasal Cannula 5.00 04/16/19 17:43 Nasal Cannula 5.00 04/16/19 17:00 108 27 169/97 (121) 91 Vapotherm 20.00 45.00 04/16/19 16:00 105 28 163/92 (115) 89 Vapotherm 20.00 45.00 04/16/19 16:00 93 Vapotherm 10.00 40 04/16/19 15:00 102 26 163/93 (116) 90 Vapotherm 20.00 45.00 04/16/19 14:39 94 Vapotherm 20.00 45 04/16/19 14:00 114 41 99 Vapotherm 20.00 45.00 04/16/19 13:00 110 16 153/86 (108) 95 Vapotherm 20.00 45.00 04/16/19 13:00 112 04/16/19 12:50 Vapotherm 20.00 45.00 04/16/19 12:00 106 36 159/90 (113) 93 Vapotherm 40.00 60.00 04/16/19 12:00 93 Vapotherm 70.00 40 04/16/19 11:14 36.6 04/16/19 11:12 92 Vapotherm 40.00 60 04/16/19 11:00 80 27 143/83 (103) 91 Vapotherm 40.00 60.00 04/16/19 10:00 79 26 145/89 (107) 90 Vapotherm 40.00 60.00 04/16/19 09:00 89 27 145/94 (111) 92 Vapotherm 40.00 60.00 04/16/19 08:15 108 187/123 04/16/19 08:00 89 32 179/120 (139) 93 Vapotherm 40.00 60.00 04/16/19 08:00 93 Vapotherm 70.00 40 04/16/19 07:47 36.6 04/16/19 07:00 88 31 169/120 (136) 91 Vapotherm 40.00 60.00 04/16/19 07:00 88 04/16/19 06:00 108 30 187/123 (144) 93 Vapotherm 40.00 50.00 04/16/19 05:00 111 25 166/120 (135) 89 Vapotherm 40.00 50.00 04/16/19 04:00 94 Vapotherm 40.00 40 04/16/19 04:00 105 22 147/94 (111) 90 Vapotherm 40.00 50.00 04/16/19 03:25 92 Vapotherm 40.00 50 I & O 04/17/19 07:00 Intake Total 740 ml Output Total 2590 ml Balance -1850 ml Height & Weight Height: 5'8" Weight: 248lbs. oz. 112.381758ww; 38.53 BMI Method:Stated General Appearance: No Apparent Distress, WD/WN, Obese HEENT: PERRL/EOMI, Pharynx Normal Neck: Normal Inspection, Non Tender, Supple Respiratory: No Accessory Muscle Use, No Respiratory Distress, Crackles, Decreased Breath Sounds (Inspiratory crackles on the left, decreased breath sounds at the L apex), Inspiration, Other (L sided chest tube in place) Cardiovascular: Regular Rate, Rhythm, No Edema, No Murmur, Normal Peripheral Pulses Capillary Refill: Less Than 3 Seconds Gastrointestinal: normal bowel sounds, non tender, soft Extremity: Normal Inspection, Non Tender, No Pedal Edema Neurologic/Psychiatric: Alert, Oriented x3, No Motor/Sensory Deficits Skin: Normal Color, Warm/Dry Results Lab Laboratory Tests 04/15/19 03:30 04/16/19 03:20 04/16/19 05:50 Assessment/Plan Assessment/Plan Left PNA with sepsis with pleuritis -Continue Rocephin and azithromycin -Repeat PCT -check MRSA swab -Influenza - neg at [place] - Repeat -[place] O cultures -IVF -Change Oxy mask to Vapotherm New spontaneous PTX -Place chest tube CP secondary to pleuritis -Troponin is negative -Tordol Asthma -Continue DuoNebs -Decrease solumedrol to 40mg Q 6 -Add claritin and singulair Hives - started prior to Abx -Solumedrol - continue -Add pepcid and continue Benadryl -IVF Sinus tach with dark concentrated urine -Give another liter of IVF LR -Monitor Hx RA - She is not taking anything for RA currently TL YANG DO 04/17/19 0531: Subjective Time Seen by a Provider: 05:19 Subjective/Events-last exam Pt feels better. Exam Exam General Appearance: No Apparent Distress, WD/WN, Obese HEENT: PERRL/EOMI, Pharynx Normal Neck: Normal Inspection, Supple Respiratory: No Accessory Muscle Use, No Respiratory Distress, Crackles, Decreased Breath Sounds (Inspiratory crackles on the left, decreased breath sounds at the L apex), Inspiration Cardiovascular: Regular Rate, Rhythm, No Edema, No Murmur, Normal Peripheral Pulses Gastrointestinal: normal bowel sounds, non tender, soft Extremity: Normal Inspection, Non Tender, No Pedal Edema Neurologic/Psychiatric: Alert, Oriented x3, No Motor/Sensory Deficits Skin: Normal Color, Warm/Dry Assessment/Plan Assessment/Plan Left PNA with sepsis with pleuritis -Continue Cefepime -MRSA swab -- is negative -D/C vancomycin and continue Cefepime for now -Influenza - neg at [place] - Repeat -De [place] O cultures -IVF -Change Oxy mask to Vapotherm New spontaneous PTX -s/p chest tube -PTX is improving -Pt had over 200 cc of fluid out chest tube over last 24hours. -Will wait until there is no airleak and out put is < 100/24hours prior to pulling chest tube. -Send pleural fluid down for culture. CP secondary to pleuritis -Tordol -Add morphine Asthma -Continue DuoNebs -Add claritin and singulair Hives - resolved Sinus tach with HTN -Add Lopressor PO -Monitor Hx RA - She is not taking anything for RA currently Supervisory-Addendum Brief Verification & Attestation Participated in pt care: history Personally performed: exam, history Care discussed with: Medical Student Procedures: n/a Verification and Attestation of Medical Student E/M Service A medical student performed and documented this service in my presence. I reviewed and verified all information documented by the medical student and made modifications to such information, when appropriate. I personally performed the physical exam and medical decision making. Tl Yang, Apr 17, 2019,07:58 CHRISTIANO CONDE MEDICAL STUDENT Apr 17, 2019 03:42 TL YANG DO Apr 17, 2019 05:31
[2019-04-17 03:48] LABS: BASOPHILS % (AUTO) 0 % (0-10); EOSINOPHILS # (AUTO) 0.1 10^3/uL (0.0-0.3); EOSINOPHILS % (AUTO) 0 % (0-10); HEMATOCRIT 38 % (35-52); HEMOGLOBIN 12.3 G/DL (11.5-16.0); LYMPHOCYTES # (AUTO) 2.7 X 10^3 (1.0-4.0); LYMPHOCYTES % (AUTO) 13 % (12-44); MEAN CORPUSCULAR HEMOGLOBIN 29 PG (25-34); MEAN CORPUSCULAR HGB CONC 32 G/DL (32-36); MEAN CORPUSCULAR VOLUME 91 FL (80-99); MEAN PLATELET VOLUME 11.7 FL (7.4-10.4); MONOCYTES # (AUTO) 1.4 X 10^3 (0.0-1.0); MONOCYTES % (AUTO) 7 % (0-12); NEUTROPHILS # (AUTO) 16.7 X 10^3 (1.8-7.8); NEUTROPHILS % (AUTO) 80 % (42-75); PLATELET COUNT 263 10^3/uL (130-400); RED CELL DISTRIBUTION WIDTH 13.4 % (10.0-14.5)
[2019-04-17 04:06] LABS: BUN/CREATININE RATIO 23; CALCIUM 8.9 MG/DL (8.5-10.1); CARBON DIOXIDE 27 MMOL/L (21-32); CHLORIDE 104 MMOL/L (98-107); CREATININE SERUM 0.79 MG/DL (0.60-1.30); GFR ESTIMATED > 60; GLUCOSE 114 MG/DL (70-105); MAGNESIUM 2.3 MG/DL (1.6-2.4); PHOSPHORUS 2.4 MG/DL (2.3-4.7); POTASSIUM 3.6 MMOL/L (3.6-5.0); SODIUM 141 MMOL/L (135-145)
[2019-04-17] MEDS: POTASSIUM CL 10MEQ/50ML IVPB 50 ML IV SCH (05:24)
[2019-04-17] MEDS: MAGNESIUM 1 GM/100 ML IVPB 100 ML IV SCH (05:25)
[2019-04-17] MEDS: inSUlin ASPART (NovoLOG) 1 UNIT/0.01 ML (CHARGE PER UNIT) SC SCH ×8 (05:25→20:48)
[2019-04-17] MEDS: KCL 20 MEQ TAB (K-DUR) PO SCH (05:25)
[2019-04-17] MEDS ORDERED: hydrALAZINE (APESOLINE) 20 MG/ML VIAL IV PRN (05:30)
[2019-04-17] MEDS: ENOXAPARIN 40 MG/0.4 ML (LOVENOX) SYR SC SCH (05:48)
[2019-04-17] MEDS: LACTATED RINGERS 1,000 ML IV SCH ×3 (05:48→23:54)
[2019-04-17] MEDS: CEFEPIME INJECTION 1,000 MG in WATER (STERILE) FOR INJECTION 10 ML IV SCH ×4 (05:49→23:54)
[2019-04-17 05:50] LABS: BODY FLUID PH 7.5; BODY FLUID SOURCE THORACENTESIS
[2019-04-17 06:14] LABS: GLUCOSE,BODY FLUID 21 MG/DL
[2019-04-17 06:15] LABS: LDH,BODY FLUID 3197 U/L; TOTAL PROTEIN,BODY FLUID 2.9 G/DL
--- NOTE | 2019-04-17 09:05 | Diagnostic Imaging Report ---
EXAMINATION: Chest radiograph, portable AP view. DATE: 04/17/2019 4:31 AM hours. INDICATION: 53-year-old female, dyspnea. COMPARISON: April 16, 2019. FINDINGS: Stable overall appearance of the cardiomediastinal silhouette. Left-sided pneumothorax currently measures 7 mm from the lung apex compared to 20 mm previously. There is a small amount of gas in the left lateral chest wall. There is nonspecific airspace consolidation in the left mid and lower lung zones. There are streaky opacities in the right lung base which are increased. IMPRESSION: 1. Interval decrease in size of the left-sided pneumothorax currently measuring 7 mm from the lung apex compared to 20 mm previously. 2. Unchanged nonspecific consolidation in the left mid and lower lung zone. 3. New streaky opacities in the right lower lobe which may relate to atelectasis and/or infiltrate. Dictated by: Dictated on workstation # [id number]
[2019-04-17] MEDS: MONTELUKAST 10 MG (SINGULAIR) TAB PO SCH (09:08)
[2019-04-17] MEDS: DOCUSATE SODIUM 100 MG (COLACE) CAP PO SCH ×2 (09:08→20:48)
[2019-04-17] MEDS: meTOprolol TARTRATE 25 MG (LOPRESSOR) TABLET PO SCH ×2 (09:08→20:48)
[2019-04-17] MEDS: LORATADINE (CLARITIN) 10 MG TAB PO SCH (09:08)
[2019-04-17] MEDS: SENNA W/DOCUSATE (SENOKOT S) TABLET PO SCH ×2 (09:08→20:48)
[2019-04-17] MEDS: FAMOTIDINE 20MG/2ML IV (PEPCID) IVP SCH ×2 (09:08→20:48)
[2019-04-17] MEDS: KETOROLAC 15 MG/ML VIAL IVP PRN ×2 (09:09→16:08)
[2019-04-17] MEDS: FLUTICASONE NASAL SPRAY (FLONASE) 16 GM BTL NS SCH (09:09)
[2019-04-17 09:29] LABS: BF OTHER CELLS 4 %; BODY FLUID RBC COUNT 39050 /uL; BODY FLUID WBC TOTAL COUNT 51150 /uL; LYMPHOCYTES,BODY FLUID 4 %
[2019-04-17 09:34] LABS: BODY FLUID APPEARENCE MKD CLDY
[2019-04-17 09:38] LABS: BODY FLUID COLOR RED
--- NOTE | 2019-04-17 14:10 | Progress Note - Hospitalist ---
Subjective HPI/CC On Admission Date Seen by Provider: Apr 17, 2019 Time Seen by Provider: 09:00 Chika Guadarrama is a 53-year-old female with past medical history of asthma, anxiety, obesity, who presented as a transfer from [place] with severe sepsis due to pneumonia. She reports that she had been feeling very short of breath. She also reports fevers and chills. She reports rigors. She reports nausea. She has had a cough. She developed a rash with hives prior to presenting. She reports pleuritic chest pain. She has pain on the left side with every breath she takes. Subjective/Events-last exam Pt reports feeling better today but having back pain. No other complaints. Focused Exam Lactate Level 04/16/19 05:50: Lactic Acid Level 2.76*H 04/16/19 07:55: Lactic Acid Level 1.02 Objective Exam Vital Signs Vital Signs Date Time Temp Pulse Resp B/P (MAP) Pulse Ox O2 Delivery O2 Flow Rate FiO2 04/17/19 13:00 100 13 146/99 (115) 94 Nasal Cannula 4.00 04/17/19 11:31 36.8 04/16/19 16:00 40 Capillary Refill : Less Than 3 Seconds General Appearance: No Apparent Distress Respiratory: Lungs Clear, No Respiratory Distress, Other (chest tube) Cardiovascular: Regular Rate, Rhythm, No Murmur Gastrointestinal: Normal Bowel Sounds, Non Tender, Soft Neurologic/Psychiatric: Alert, Oriented x3, Normal Mood/Affect Results/Procedures Lab Laboratory Tests 04/17/19 03:35 Patient resulted labs reviewed. Imaging: Reviewed Imaging Report Assessment/Plan Assessment and Plan Assess & Plan/Chief Complaint Severe sepsis Community acquired pneumonia Acute respiratory failure with hypoxia Spontaneous Pneumothorax Asthma WBC trended down slightly again today - Chest tube placed by Dr Yang 04/[address] chest with left lingular consolidation with parapneumonic effusion Outside blood cultures with no growth to date per [place] [place] Continue on cefepime, vanc DC Continue steroids Pulmonology consulted, appreciate assistance Lactic acidosis, resolved Hyperglycemia -SSI -likely due to steroids - improving Morbid obesity Clinically significant, no acute management needs DVT prophylaxis: Lovenox Acute kidney injury, resolved Hives, resolved Diagnosis/Problems Diagnosis/Problems (1) Essential (primary) hypertension Status: Chronic (2) Spontaneous pneumothorax Status: Acute (3) Acute respiratory failure with hypoxia Status: Acute (4) Acute kidney injury Status: Resolved Resolution Date/Time: 04/15/19 @ 14:11 (5) Hives Status: Resolved Resolution Date/Time: 04/15/19 @ 14:11 (6) Morbid obesity (7) Severe sepsis Status: Acute (8) Community acquired pneumonia Status: Acute Qualifiers: Laterality: left Lung location: lower lobe of lung Qualified Codes: J18.1 - Lobar pneumonia, unspecified organism (9) Lactic acidosis Status: Resolved Resolution Date/Time: 04/14/19 @ 13:26 (10) Asthma Status: Chronic Qualifiers: Asthma severity: moderate Asthma persistence: persistent Asthma complication type: uncomplicated Qualified Codes: J45.40 - Moderate persistent asthma, uncomplicated (11) Hyperglycemia Status: Acute Clinical Quality Measures DVT/VTE Risk/Contraindication: Risk Factor Score Per Nursin RFS Level Per Nursing on Admit: 4+=Very High JONATHAN DANGELO MD Apr 17, 2019 14:10
--- NOTE | 2019-04-17 14:10 | NUR ---
Cm/SS visited with patient for discharge planning. The patient states that she does not currently have insurance. She did have [employer] but her lost his job in December. She verbalized that they have started to fill out the financial application through the hospital. This CM/SS asked if patient has applied for Medicaid due to her statement of not working from disability. She reports that she has not filled it out yet. CM/SS contacted Maria Alejandra from Financial Services via email to see if she would check into this. CM/SS and patient discussed other community resources and she verbalized that she gets some assistance through her [employer]aker in [place]. No other needs at this time. Will continue to follow until discharge.
--- NOTE | 2019-04-17 15:12 | Physical Therapy Evaluation ---
PT Evaluation-General Medical Diagnosis Admission Date Apr 13, 2019 at 22:52 Medical Diagnosis: PNA Onset Date: Apr 13, 2019 Therapy Diagnosis Therapy Diagnosis: impaired mobility, strength, endurance Height/Weight Height (Feet): 5 Height (Inches): 8 Weight (Pounds): 248 Precautions Precautions/Isolations: Fall Prevention, Standard Precautions Weight Bear Status Right Lower Extremity: Right Weight Bearing/Tolerated Left Lower Extremity: Left Weight Bearing/Tolerated Referral Physician: Lise Reason for Referral: Evaluation/Treatment Medical History Additional Medical History Past Medical History Surgeries: Hysterectomy Cardiac: Hypertension Hysterectomy Musculoskeletal: Rheumatoid Arthritis History of Blood Disorders: No Reviewed History: Yes Social History Home: [facility] Current Living Status: Spouse Entry Into Home: Stairs With Railing PT Steps Into Home: 3 Prior Prior Level of Function SCALE: Activities may be completed with or without assistive devices. 5-Syspcfldoz-mbzadnp completes the activity by him/herself with no assistance from a helper. 5-Set-up or Clean-up Assistance-helper sets up or cleans up; patient completes activity. Fisher assists only prior to or following the activity. 4-Supervision or Touching Assistance-helper provides verbal cues and/or touching/steadying and/or contact guard assistance as patient completes activity. Assistance may be provided throughout the activity or intermittently. 3-Partial/Moderate Assistance-helper does LESS THAN HALF the effort. Fisher lifts, holds or supports trunk or limbs, but provides less than half the effort. 2-Substantial/Maximal Assistance-helper does MORE THAN HALF the effort. Fisher lifts or holds trunk or limbs and provides more than half the effort. 5-Jqmxhzrjf-lnzjau does ALL the effort. Patient does none of the effort to complete the activity. Or, the assistance of 2 or more helpers is required for the patient to complete the activity. If activity was not attempted, code reason: 7-Patient Refused. 9-Not Applicable-not attempted and the patient did not perform the activity before the current illness, exacerbation or injury. 10-Not Attempted due to Environmental Limitations-(lack of equipment, weather restraints, etc.). 88-Not Attempted due to Medical Conditions or Safety Concerns. Bed Mobility: 6 Transfers (B,C,W/C): 6 Gait: 6 Stairs: 6 Indoor Mobility (Ambulation): Independent Stairs: Independent PT Evaluation-Current Subjective Patient in bed pre tx, agrees to PT, has some unrated pain in her left side from the chest tube. Pt/Family Goals to be independent at home Objective Patient Orientation: Person, Place, Situation Attachments: Oxygen, Gray Catheter, IV ROM/Strength ROM Lower Extremities WNL Strength Lower Extremities 4+/5 gross BLE except for hip flexion which was 4/5 bilaterally Sensory Vision: Functional Hearing: Functional Sensation Right Lower Extremit: Intact Sensation Left Lower Extremity: Intact Transfers Roll Left to Right (QC): 6 Lying to Sitting/Side of Bed(Q: 4 Sit to Stand (QC): 4 Chair/Rfz-gl-Tzvoy Xfer(QC): 4 supine to sit SBA, sit to stand and transfer (using rolling walker) SBA Assessment/Needs Patient very SOB with just sitting on the bed, needs rest break to recover, SOB after transfer and sitting in recliner. Patient's O2 stayed above 90% the whole time. Patient in recliner post tx with nurse call, phone, tray, all needs met. Rehab Potential: Fair PT Group Home Goals Face Man Goals PT Face Man Goals Time Frame: Apr 24, 2019 Roll Left & Right (QC): 6 Sit to Lying (QC): 6 Lying-Sitting on Side/Bed(QC): 6 Sit to Stand (QC): 6 Chair/Oev-gy-Iwxzm Xfer(QC): 6 Toilet Transfer (QC): 6 Walk 10 feet (QC): 4 Walk 50ft with 2 Turns (QC): 4 PT Plan Problem List Problem List: Activity Tolerance, Functional Strength, Safety, Balance, Gait, Transfer, Bed Mobility Treatment/Plan Treatment Plan: Continue Plan of Care Treatment Plan: Bed Mobility, Education, Functional Activity Kai, Functional Strength, Gait, Safety, Therapeutic Exercise, Transfers Treatment Duration: Apr 24, 2019 Frequency: 6 times per week Estimated Hrs Per Day: .25 hour per day Patient and/or Family Agrees t: Yes Safety Risks/Education Patient Education: Transfer Techniques, Correct Positioning, Safety Issues Teaching Recipient: Patient Teaching Methods: Demonstration, Discussion Response to Teaching: Reinforcement Needed Discharge Recommendations Plan Patient will perform bed mobility and transfer training, balance and endurance training, functional strengthening, stair training, gait training, and edu cation, to improve functional mobility and independence at home. Therapy Discharge Recommendati: Home & Family Time/GCodes Time In: 1455 Time Out: 1505 Total Billed Treatment Time: 10 Total Billed Treatment 1 visit EVL DIANA FRANCES PT Apr 17, 2019 15:12
--- OUTSIDE RECORDS SUMMARY | 2019-04-17 20:35 | XMS REPORT | Continuity of Care Document ---
Author Organization Unknown Address Unknown Phone Unavailable Allergies Active Description Code Type Severity Reaction Onset Reported/Identified Relationship to Patient Clinical Status Yes dRUGS THAT AFFECT SERITONIN LEVELS dRUGS THAT AFFECT SERITONIN LEVELS Unknown N/A 10/15/2005 Medications There is no data. Problems Date Dx Coded Attending Type Code Diagnosis Diagnosed By 08/03/2018 SHERIN GUTIÉRREZ MD Ot I10 ESSENTIAL (PRIMARY) HYPERTENSION 08/03/2018 SHERIN GUTIÉRREZ MD Ot J45.901 UNSPECIFIED ASTHMA WITH (ACUTE) EXACERBA 08/03/2018 SHERIN GUTIÉRREZ MD Ot M06.9 RHEUMATOID ARTHRITIS, UNSPECIFIED 08/03/2018 SHERIN GUTIÉRREZ MD Ot Z79.51 JAIL (CURRENT) USE OF INHALED STERO 08/03/2018 SHERIN GUTIÉRREZ MD Ot Z87.891 PERSONAL HISTORY OF NICOTINE DEPENDENCE 08/03/2018 SHERIN GUTIÉRREZ MD Ot Z88.8 ALLERGY STATUS TO OTH DRUG/MEDS/BIOL SUB 08/03/2018 SHERIN GUTIÉRREZ MD Ot Z90.710 ACQUIRED ABSENCE OF BOTH CERVIX AND UTER 08/05/2018 SHERIN GUTIÉRREZ MD Ot I10 ESSENTIAL (PRIMARY) HYPERTENSION 08/05/2018 SHERIN GUTIÉRREZ MD Ot J45.901 UNSPECIFIED ASTHMA WITH (ACUTE) EXACERBA 08/05/2018 SHERIN GUTIÉRREZ MD Ot M06.9 RHEUMATOID ARTHRITIS, UNSPECIFIED 08/05/2018 SHERIN GUTIÉRREZ MD T Ot Z79.51 DIGITAL PRODUCTION ARTIST (CURRENT) USE OF INHALED STERO 08/05/2018 SHERNI GUTIÉRREZ MD Ot Z87.891 PERSONAL HISTORY OF NICOTINE DEPENDENCE 08/05/2018 SHERIN GUTIÉRREZ MD Ot Z88.8 ALLERGY STATUS TO OTH DRUG/MEDS/BIOL SUB 08/05/2018 SHERIN GUTIÉRREZ MD Ot Z90.710 ACQUIRED ABSENCE OF BOTH CERVIX AND UTER 11/07/2018 SHERIN GUTIÉRREZ MD Ot I10 ESSENTIAL (PRIMARY) HYPERTENSION 11/07/2018 SHERIN GUTIÉRREZ MD Ot J45.901 UNSPECIFIED ASTHMA WITH (ACUTE) EXACERBA 11/07/2018 SHERIN GUTIÉRREZ MD Ot M06.9 RHEUMATOID ARTHRITIS, UNSPECIFIED 11/07/2018 SHERIN GUTIÉRREZ MD Ot R06.89 OTHER ABNORMALITIES OF BREATHING 11/07/2018 SHERIN GUTIÉRREZ MD Ot Z79.51 DIGITAL PRODUCTION ARTIST (CURRENT) USE OF INHALED STERO 11/07/2018 SHERIN GUTIÉRREZ MD Ot Z79.52 JAIL (CURRENT) USE OF SYSTEMIC STER 11/07/2018 SHERIN GUTIÉRREZ MD Ot Z88.8 ALLERGY STATUS TO OTH DRUG/MEDS/BIOL SUB 11/07/2018 SHERIN GUTIÉRREZ MD Ot Z90.710 ACQUIRED ABSENCE OF BOTH CERVIX AND UTER 11/09/2018 SHERIN GUTIÉRREZ MD Ot I10 ESSENTIAL (PRIMARY) HYPERTENSION 11/09/2018 SHERIN GUTIÉRRZE MD Ot J45.901 UNSPECIFIED ASTHMA WITH (ACUTE) EXACERBA 11/09/2018 SHERIN GUTIÉRREZ MD, Ot M06.9 RHEUMATOID ARTHRITIS, UNSPECIFIED 11/09/2018 SHERIN GUTIÉRREZ MD Ot R06.89 OTHER ABNORMALITIES OF BREATHING 11/09/2018 SHERIN GUTIÉRREZ MD Ot Z79.51 JAIL (CURRENT) USE OF INHALED STERO 11/09/2018 SHERIN GUTIÉRREZ MD Ot Z79.52 JAIL (CURRENT) USE OF SYSTEMIC STER 11/09/2018 SHERIN GUTIÉRREZ MD Ot Z88.8 ALLERGY STATUS TO OTH DRUG/MEDS/BIOL SUB 11/09/2018 SHERIN GUTIÉRREZ MD Ot Z90.710 ACQUIRED ABSENCE OF BOTH CERVIX AND UTER 04/16/2019 RICHY LEVY MD Ot A41. 9 SEPSIS, UNSPECIFIED ORGANISM 04/16/2019 MILDRED MD, RICHY M Ot E66. 01 MORBID (SEVERE) OBESITY DUE TO EXCESS CA 04/16/2019 RICHY LEVY MD Ot E87. 2 ACIDOSIS 04/16/2019 RICHY LEVY MD Ot F41. 9 ANXIETY DISORDER, UNSPECIFIED 04/16/2019 RICHY LEVY MD M Ot I10 ESSENTIAL (PRIMARY) HYPERTENSION 04/16/2019 RICHY LEVY MD Ot J18. 9 PNEUMONIA, UNSPECIFIED ORGANISM 04/16/2019 RICHY LEVY MD M Ot J45.909 UNSPECIFIED ASTHMA, UNCOMPLICATED 04/16/2019 RICHY LEVY MD M Ot J96. 01 ACUTE RESPIRATORY FAILURE WITH HYPOXIA 04/16/2019 RICHY LEVY MD Ot L50. 9 URTICARIA, UNSPECIFIED 04/16/2019 RICHY LEVY MD M Ot M06. 9 RHEUMATOID ARTHRITIS, UNSPECIFIED 04/16/2019 RICHY LEVY MD Ot N17. 9 ACUTE KIDNEY FAILURE, UNSPECIFIED 04/16/2019 RICHY LEVY MD Ot R09. 1 PLEURISY 04/16/2019 RICHY LEVY MD Ot R65. 20 SEVERE SEPSIS WITHOUT SEPTIC SHOCK 04/16/2019 RICHY LEVY MD M Ot Z68. 41 BODY MASS INDEX (BMI) 40.0-44.9, ADULT 04/16/2019 RICHY LEVY MD Ot A41. 9 SEPSIS, UNSPECIFIED ORGANISM 04/16/2019 RICHY LEVY MD M Ot E66. 01 MORBID (SEVERE) OBESITY DUE TO EXCESS CA 04/16/2019 RICHY LEVY MD Ot E87. 2 ACIDOSIS 04/16/2019 RICHY LEVY MD Ot F41. 9 ANXIETY DISORDER, UNSPECIFIED 04/16/2019 RICHY LEVY MD M Ot I10 ESSENTIAL (PRIMARY) HYPERTENSION 04/16/2019 RICHY LEVY MD M Ot J18. 9 PNEUMONIA, UNSPECIFIED ORGANISM 04/16/2019 RICHY LEVY MD M Ot J45.909 UNSPECIFIED ASTHMA, UNCOMPLICATED 04/16/2019 RICHY LEVY MD M Ot J96. 01 ACUTE RESPIRATORY FAILURE WITH HYPOXIA 04/16/2019 RIHCY LEVY MD Ot L50. 9 URTICARIA, UNSPECIFIED 04/16/2019 RICHY LEVY MD M Ot M06. 9 RHEUMATOID ARTHRITIS, UNSPECIFIED 04/16/2019 RICHY LEVY MD Ot N17. 9 ACUTE KIDNEY FAILURE, UNSPECIFIED 04/16/2019 RICHY LEVY MD Ot R09. 1 PLEURISY 04/16/2019 RICHY LEVY MD Ot R65. 20 SEVERE SEPSIS WITHOUT SEPTIC SHOCK 04/16/2019 RICHY LEVY MD Ot Z68. 41 BODY MASS INDEX (BMI) 40.0-44.9, ADULT 04/16/2019 RICHY LEVY MD Ot A41. 9 SEPSIS, UNSPECIFIED ORGANISM 04/16/2019 RICHY LEVY MD Ot E66. 01 MORBID (SEVERE) OBESITY DUE TO EXCESS CA 04/16/2019 RICHY LEVY MD Ot E87. 2 ACIDOSIS 04/16/2019 RICHY LEVY MD Ot F41. 9 ANXIETY DISORDER, UNSPECIFIED 04/16/2019 RICHY LEVY MD Ot I10 ESSENTIAL (PRIMARY) HYPERTENSION 04/16/2019 RICHY LEVY MD Ot J18. 9 PNEUMONIA, UNSPECIFIED ORGANISM 04/16/2019 RICHY LEVY MD Ot J45.909 UNSPECIFIED ASTHMA, UNCOMPLICATED 04/16/2019 RICHY LEVY MD Ot J96. 01 ACUTE RESPIRATORY FAILURE WITH HYPOXIA 04/16/2019 RICHY LEVY MD Ot L50. 9 URTICARIA, UNSPECIFIED 04/16/2019 RICHY LEVY MD Ot M06. 9 RHEUMATOID ARTHRITIS, UNSPECIFIED 04/16/2019 RICHY LEVY MD Ot N17. 9 ACUTE KIDNEY FAILURE, UNSPECIFIED 04/16/2019 RICHY LEVY MD Ot R09. 1 PLEURISY 04/16/2019 RICHY LEVY MD Ot R65. 20 SEVERE SEPSIS WITHOUT SEPTIC SHOCK 04/16/2019 RICHY LEVY MD Ot Z68. 41 BODY MASS INDEX (BMI) 40.0-44.9, ADULT 04/16/2019 RICHY LEVY MD Ot A41. 9 SEPSIS, UNSPECIFIED ORGANISM 04/16/2019 RICHY LEVY MD Ot E66. 01 MORBID (SEVERE) OBESITY DUE TO EXCESS CA 04/16/2019 RICHY LEVY MD Ot E87. 2 ACIDOSIS 04/16/2019 RICHY LEVY MD Ot F41. 9 ANXIETY DISORDER, UNSPECIFIED 04/16/2019 MILDRED FREITAS, RICHY M Ot I10 ESSENTIAL (PRIMARY) HYPERTENSION 04/16/2019 RICHY LEVY MD M Ot J18. 9 PNEUMONIA, UNSPECIFIED ORGANISM 04/16/2019 MILDRED FREITAS, RICHY M Ot J45.909 UNSPECIFIED ASTHMA, UNCOMPLICATED 04/16/2019 RICHY LEVY MD M Ot J96. 01 ACUTE RESPIRATORY FAILURE WITH HYPOXIA 04/16/2019 RICHY LEVY MD M Ot L50. 9 URTICARIA, UNSPECIFIED 04/16/2019 RICHY LEVY MD M Ot M06. 9 RHEUMATOID ARTHRITIS, UNSPECIFIED 04/16/2019 RICHY LEVY MD M Ot N17. 9 ACUTE KIDNEY FAILURE, UNSPECIFIED 04/16/2019 RICHY LEVY MD M Ot R09. 1 PLEURISY 04/16/2019 RICHY LEVY MD M Ot R65. 20 SEVERE SEPSIS WITHOUT SEPTIC SHOCK 04/16/2019 RICHY LEVY MD M Ot Z68. 41 BODY MASS INDEX (BMI) 40.0-44.9, ADULT 04/16/2019 RICHY LEVY MD M Ot A41. 9 SEPSIS, UNSPECIFIED ORGANISM 04/16/2019 RICHY LEVY MD M Ot E66. 01 MORBID (SEVERE) OBESITY DUE TO EXCESS CA 04/16/2019 RICHY LEVY MD M Ot E87. 2 ACIDOSIS 04/16/2019 RICHY LEVY MD M Ot F41. 9 ANXIETY DISORDER, UNSPECIFIED 04/16/2019 RICHY LEVY MD M Ot I10 ESSENTIAL (PRIMARY) HYPERTENSION 04/16/2019 RICHY LEVY MD M Ot J18. 9 PNEUMONIA, UNSPECIFIED ORGANISM 04/16/2019 RICHY LEVY MD M Ot J45.909 UNSPECIFIED ASTHMA, UNCOMPLICATED 04/16/2019 RICHY LEVY MD M Ot J96. 01 ACUTE RESPIRATORY FAILURE WITH HYPOXIA 04/16/2019 RICHY LEVY MD M Ot L50. 9 URTICARIA, UNSPECIFIED 04/16/2019 RICHY LEVY MD M Ot M06. 9 RHEUMATOID ARTHRITIS, UNSPECIFIED 04/16/2019 RICHY LEVY MD M Ot N17. 9 ACUTE KIDNEY FAILURE, UNSPECIFIED 04/16/2019 RICHY LEVY MD M Ot R09. 1 PLEURISY 04/16/2019 RICHY LEVY MD Ot R65. 20 SEVERE SEPSIS WITHOUT SEPTIC SHOCK 04/16/2019 RICHY LEVY MD Ot Z68. 41 BODY MASS INDEX (BMI) 40.0-44.9, ADULT 04/16/2019 RICHY LEVY MD Ot A41. 9 SEPSIS, UNSPECIFIED ORGANISM 04/16/2019 RICHY LEVY MD Ot E66. 01 MORBID (SEVERE) OBESITY DUE TO EXCESS CA 04/16/2019 RICHY LEVY MD Ot E87. 2 ACIDOSIS 04/16/2019 RICHY LEVY MD Ot F41. 9 ANXIETY DISORDER, UNSPECIFIED 04/16/2019 RICHY LEVY MD Ot I10 ESSENTIAL (PRIMARY) HYPERTENSION 04/16/2019 RICHY LEVY MD Ot J18. 9 PNEUMONIA, UNSPECIFIED ORGANISM 04/16/2019 RICHY LEVY MD Ot J45.909 UNSPECIFIED ASTHMA, UNCOMPLICATED 04/16/2019 RICHY LEVY MD Ot J96. 01 ACUTE RESPIRATORY FAILURE WITH HYPOXIA 04/16/2019 RICHY LEVY MD Ot L50. 9 URTICARIA, UNSPECIFIED 04/16/2019 RICHY LEVY MD Ot M06. 9 RHEUMATOID ARTHRITIS, UNSPECIFIED 04/16/2019 RICHY LEVY MD Ot N17. 9 ACUTE KIDNEY FAILURE, UNSPECIFIED 04/16/2019 RICHY LEVY MD Ot R09. 1 PLEURISY 04/16/2019 RICHY LEVY MD Ot R65. 20 SEVERE SEPSIS WITHOUT SEPTIC SHOCK 04/16/2019 RICHY LEVY MD Ot Z68. 41 BODY MASS INDEX (BMI) 40.0-44.9, ADULT 04/16/2019 RICHY LEVY MD Ot A41. 9 SEPSIS, UNSPECIFIED ORGANISM 04/16/2019 RICHY LEVY MD Ot E66. 01 MORBID (SEVERE) OBESITY DUE TO EXCESS CA 04/16/2019 RICHY LEVY MD Ot E87. 2 ACIDOSIS 04/16/2019 RICHY LEVY MD Ot F41. 9 ANXIETY DISORDER, UNSPECIFIED 04/16/2019 RICHY LEVY MD Ot I10 ESSENTIAL (PRIMARY) HYPERTENSION 04/16/2019 RICHY LEVY MD Ot J18. 9 PNEUMONIA, UNSPECIFIED ORGANISM 04/16/2019 RICHY LEVY MD Ot J45.909 UNSPECIFIED ASTHMA, UNCOMPLICATED 04/16/2019 RICHY LEVY MD Ot J96. 01 ACUTE RESPIRATORY FAILURE WITH HYPOXIA 04/16/2019 RICHY LEVY MD Ot L50. 9 URTICARIA, UNSPECIFIED 04/16/2019 RICHY LEVY MD Ot M06. 9 RHEUMATOID ARTHRITIS, UNSPECIFIED 04/16/2019 RICHY LEVY MD Ot N17. 9 ACUTE KIDNEY FAILURE, UNSPECIFIED 04/16/2019 RICHY LEVY MD Ot R09. 1 PLEURISY 04/16/2019 RICHY LEVY MD Ot R65. 20 SEVERE SEPSIS WITHOUT SEPTIC SHOCK 04/16/2019 RICHY LEVY MD Ot Z68. 41 BODY MASS INDEX (BMI) 40.0-44.9, ADULT 04/16/2019 RICHY LEVY MD Ot A41. 9 SEPSIS, UNSPECIFIED ORGANISM 04/16/2019 RICHY LEVY MD Ot E66. 01 MORBID (SEVERE) OBESITY DUE TO EXCESS CA 04/16/2019 RICHY LEVY MD Ot E87. 2 ACIDOSIS 04/16/2019 RICHY LEVY MD Ot F41. 9 ANXIETY DISORDER, UNSPECIFIED 04/16/2019 RICHY LEVY MD Ot I10 ESSENTIAL (PRIMARY) HYPERTENSION 04/16/2019 RICHY LEVY MD Ot J18. 9 PNEUMONIA, UNSPECIFIED ORGANISM 04/16/2019 RICHY LEVY MD Ot J45.909 UNSPECIFIED ASTHMA, UNCOMPLICATED 04/16/2019 RICHY LEVY MD Ot J96. 01 ACUTE RESPIRATORY FAILURE WITH HYPOXIA 04/16/2019 RICHY LEVY MD Ot L50. 9 URTICARIA, UNSPECIFIED 04/16/2019 RICHY LEVY MD Ot M06. 9 RHEUMATOID ARTHRITIS, UNSPECIFIED 04/16/2019 RICHY LEVY MD Ot N17. 9 ACUTE KIDNEY FAILURE, UNSPECIFIED 04/16/2019 RICHY LEVY MD Ot R09. 1 PLEURISY 04/16/2019 RICHY LEVY MD Ot R65. 20 SEVERE SEPSIS WITHOUT SEPTIC SHOCK 04/16/2019 RICHY LEVY MD Ot Z68. 41 BODY MASS INDEX (BMI) 40.0-44.9, ADULT Procedures There is no data. Results Test Result Range Complete blood count (CBC) with automate d white blood cell (WBC) differential - 08/03/18 00:22 Blood leukocytes automated count (number/volume) 9.8 10*3/uL 4.3-11.0 Blood erythrocytes automated count (number/volume) 4.76 10*6/uL 4.35-5.85 Venous blood hemoglobin measurement (mass/volume) 14.7 g/dL 11.5-16.0 Blood hematocrit (volume fraction) 42 % 35-52 Automated erythrocyte mean corpuscular volume 88 [ foz_us] 80-99 Automated erythrocyte mean corpuscular h emoglobin (mass per erythrocyte) 31 pg 25-34 Automated erythrocyte mean corpuscular h emoglobin concentration measurement (mass/volume) 35 g/dL 32-36 Automated erythrocyte distribution width ratio 13. 4 % 10.0- 14.5 Automated blood platelet count (count/volume) 240 10*3/uL 130-400 Automated blood platelet mean volume measurement 11.8 [foz_us] 7.4-10.4 Automated blood neutrophils/100 leukocytes 44 % 42-75 Automated blood lymphocytes/100 leukocytes 44 % 12-44 Blood monocytes/100 leukocytes 7 % 0-12 Automated blood eosinophils/100 leukocytes 5 % 0-10 Automated blood basophils/100 leukocytes 1 % 0-10 Blood neutrophils automated count (number/volume) 4.4 10*3 1.8-7.8 Blood lymphocytes automated count (number/volume) 4.3 10*3 1.0-4.0 Blood monocytes automated count (number/volume) 0. 7 10*3 0.0-1.0 Automated eosinophil count 0.5 10*3/uL 0 .0-0.3 Automated blood basophil count (count/volume) 0.1 10*3/uL 0.0-0.1 Comprehensive metabolic panel - 08/03/18 00:22 Serum or plasma sodium measurement (moles/volume) 141 mmol/L 135-145 Serum or plasma potassium measurement (moles/volume) 3.8 mmol/L 3.6-5.0 Serum or plasma chloride measurement (moles/volume) 104 mmol/L 98-107 Carbon dioxide 22 mmol/L 21-32 Serum or plasma anion gap determination (moles/volume) 15 mmol/L 5-14 Serum or plasma urea nitrogen measurement (mass/volume ) 15 mg/dL 7-18 Serum or plasma creatinine measurement (mass/volume) 1.04 mg/dL 0.60-1.30 Serum or plasma urea nitrogen/creatinine mass ratio 14 NRG Serum or plasma creatinine measurement w ith calculation of estimated glomerular filtration rate 56 NRG Serum or plasma glucose measurement (mass/volume) 147 mg/dL 70-105 Serum or plasma calcium measurement (mass/volume) 9.6 mg/dL 8.5-10.1 Serum or plasma total bilirubin measurement (mass/volu me) 0.3 mg/dL 0.1-1.0 Serum or plasma alkaline phosphatase sayda surement (enzymatic activity/volume) 90 U/L 40-136 Serum or plasma aspartate aminotransfera se measurement (enzymatic activity/volume) 19 U/L 5-34 Serum or plasma alanine aminotransferase measurement (enzymatic activity/volume) 24 U/L 0-55 Serum or plasma protein measurement (mass/volume) 7.4 g/dL 6.4-8.2 Serum or plasma albumin measurement (mass/volume) 4.3 g/dL 3.2-4.5 CALCIUM CORRECTED 9.4 mg/dL 8.5-10.1 Serum or plasma C reactive protein measu rement (mass/volume) - 08/03/18 00:22 Serum or plasma C reactive protein measurement (mass/v olume) 0.42 mg/dL 0.00-0.50 Complete blood count (CBC) with automate d white blood cell (WBC) differential - 11/07/18 21:22 Blood leukocytes automated count (number/volume) 9.1 10*3/uL 4.3-11.0 Blood erythrocytes automated count (number/volume) 5.02 10*6/uL 4.35-5.85 Venous blood hemoglobin measurement (mass/volume) 15.1 g/dL 11.5-16.0 Blood hematocrit (volume fraction) 44 % 35-52 Automated erythrocyte mean corpuscular volume 87 [ foz_us] 80-99 Automated erythrocyte mean corpuscular h emoglobin (mass per erythrocyte) 30 pg 25-34 Automated erythrocyte mean corpuscular h emoglobin concentration measurement (mass/volume) 35 g/dL 32-36 Automated erythrocyte distribution width ratio 13. 2 % 10.0- 14.5 Automated blood platelet count (count/volume) 257 10*3/uL 130-400 Automated blood platelet mean volume measurement 11.8 [foz_us] 7.4-10.4 Automated blood neutrophils/100 leukocytes 73 % 42-75 Automated blood lymphocytes/100 leukocytes 20 % 12-44 Blood monocytes/100 leukocytes 3 % 0-12 Automated blood eosinophils/100 leukocytes 4 % 0-10 Automated blood basophils/100 leukocytes 1 % 0-10 Blood neutrophils automated count (number/volume) 6.6 10*3 1.8-7.8 Blood lymphocytes automated count (number/volume) 1.8 10*3 1.0-4.0 Blood monocytes automated count (number/volume) 0. 3 10*3 0.0-1.0 Automated eosinophil count 0.3 10*3/uL 0 .0-0.3 Automated blood basophil count (count/volume) 0.1 10*3/uL 0.0-0.1 Whole blood basic metabolic panel - 02/25 21:22 Serum or plasma sodium measurement (moles/volume) 140 mmol/L 135-145 Serum or plasma potassium measurement (moles/volume) 4.0 mmol/L 3.6-5.0 Serum or plasma chloride measurement (moles/volume) 107 mmol/L 98-107 Carbon dioxide 23 mmol/L 21-32 Serum or plasma anion gap determination (moles/volume) 10 mmol/L 5-14 Serum or plasma urea nitrogen measurement (mass/volume ) 14 mg/dL 7-18 Serum or plasma creatinine measurement (mass/volume) 1.21 mg/dL 0.60-1.30 Serum or plasma urea nitrogen/creatinine mass ratio 12 NRG Serum or plasma creatinine measurement w ith calculation of estimated glomerular filtration rate 47 NRG Serum or plasma glucose measurement (mass/volume) 119 mg/dL 70-105 Serum or plasma calcium measurement (mass/volume) 9.3 mg/dL 8.5-10.1 Serum or plasma C reactive protein measu rement (mass/volume) - 11/07/18 21:22 Serum or plasma C reactive protein measurement (mass/v olume) 0.58 mg/dL 0.00-0.50 Methicillin resistant Staphylococcus aur eus (MRSA) screening culture - 04/13/19 23:11 Methicillin resistant Staphylococcus aureus (MRSA) scr eening culture NEG NRG Complete blood count (CBC) with automate d white blood cell (WBC) differential - 04/13/19 23:18 Blood leukocytes automated count (number/volume) 18.1 10*3/uL 4.3-11.0 Blood erythrocytes automated count (number/volume) 4.38 10*6/uL 4.35-5.85 Venous blood hemoglobin measurement (mass/volume) 13.3 g/dL 11.5-16.0 Blood hematocrit (volume fraction) 39 % 35-52 Automated erythrocyte mean corpuscular volume 90 [ foz_us] 80-99 Automated erythrocyte mean corpuscular h emoglobin (mass per erythrocyte) 30 pg 25-34 Automated erythrocyte mean corpuscular h emoglobin concentration measurement (mass/volume) 34 g/dL 32-36 Automated erythrocyte distribution width ratio 13. 1 % 10.0- 14.5 Automated blood platelet count (count/volume) 199 10*3/uL 130-400 Automated blood platelet mean volume measurement 12.2 [foz_us] 7.4-10.4 Automated blood neutrophils/100 leukocytes 84 % 42-75 Automated blood lymphocytes/100 leukocytes 7 % 12-44 Blood monocytes/100 leukocytes 8 % 0-12 Automated blood eosinophils/100 leukocytes 0 % 0-10 Automated blood basophils/100 leukocytes 0 % 0-10 Blood neutrophils automated count (number/volume) 15.3 10*3 1.8-7.8 Blood lymphocytes automated count (number/volume) 1.3 10*3 1.0-4.0 Blood monocytes automated count (number/volume) 1. 4 10*3 0.0-1.0 Automated eosinophil count 0.1 10*3/uL 0 .0-0.3 Automated blood basophil count (count/volume) 0.0 10*3/uL 0.0-0.1 Blood lactic acid measurement (moles/vol ume) - 04/13/19 23:18 Blood lactic acid measurement (moles/volume) 1.66 mmol/L 0.50-2.00 Whole blood basic metabolic panel - 07/27 23:18 Serum or plasma sodium measurement (moles/volume) 139 mmol/L 135-145 Serum or plasma potassium measurement (moles/volume) 3.8 mmol/L 3.6-5.0 Serum or plasma chloride measurement (moles/volume) 107 mmol/L 98-107 Carbon dioxide 19 mmol/L 21-32 Serum or plasma anion gap determination (moles/volume) 13 mmol/L 5-14 Serum or plasma urea nitrogen measurement (mass/volume ) 15 mg/dL 7-18 Serum or plasma creatinine measurement (mass/volume) 1.53 mg/dL 0.60-1.30 Serum or plasma urea nitrogen/creatinine mass ratio 10 NRG Serum or plasma creatinine measurement w ith calculation of estimated glomerular filtration rate 36 NRG Serum or plasma glucose measurement (mass/volume) 151 mg/dL 70-105 Serum or plasma calcium measurement (mass/volume) 9.0 mg/dL 8.5-10.1 Serum or plasma phosphate measurement (m ass/volume) - 04/13/19 23:18 Serum or plasma phosphate measurement (mass/volume) 2.8 mg/dL 2.3-4.7 Magnesium - 04/13/19 23:18 Magnesium 1.7 mg/dL 1.6-2.4 PROCALCITONIN (PCT) - 04/13/19 23:18 PROCALCITONIN (PCT) 3.96 ng/mL <0.10 Serum or plasma troponin i.cardiac measu rement (mass/volume) - 04/13/19 23:18 Serum or plasma troponin i.cardiac measurement (mass/v olume) < ng/mL <0.028 Manual absolute plasma cell count - 07/27 23:18 Blood monocytes/100 leukocytes 5 % NRG Manual blood segmented neutrophils/100 leukocytes 76 % NRG Blood band neutrophils/100 leukocytes 10 % NRG Manual blood lymphocytes/100 leukocytes 7 % NRG Manual eosinophils/100 leukocytes in nose 2 % NRG Blood erythrocyte morphology finding identification NORMAL NRG Complete urinalysis with reflex to cultu re - 04/14/19 02:08 Urine color determination JACLYN NRG Urine clarity determination CLOUDY NR G Urine pH measurement by test strip 5.5 5-9 Specific gravity of urine by test strip 1.025 1.016-1.022 Urine protein assay by test strip, semi-quantitative 1+ NEGATIVE Urine glucose detection by automated test strip NE GATIVE NEGATIVE Erythrocytes detection in urine sediment by light micr oscopy 1+ NEGATIVE Urine ketones detection by automated test strip TR TY NEGATIVE Urine nitrite detection by test strip NEGATIVE NEGATIVE Urine total bilirubin detection by test strip 1+ NEGATIVE Urine urobilinogen measurement by automated test strip (mass/volume) 1.0 mg/dL < = 1.0 Urine leukocyte esterase detection by dipstick NEG ATIVE NEGATIVE Automated urine sediment erythrocyte cou nt by microscopy (number/high power field) [HPF] NRG Automated urine sediment leukocyte count by microscopy (number/high power field) [HPF] NRG Bacteria detection in urine sediment by light microsco py FEW NRG Squamous epithelial cells detection in u rine sediment by light microscopy 5-10 NRG Crystals detection in urine sediment by light microsco py NONE NRG Casts detection in urine sediment by light microscopy PRESENT NRG Mucus detection in urine sediment by light microscopy LARGE NRG Complete urinalysis with reflex to culture YES NRG Granular casts detection in urine sediment by light mi croscopy 5-10 NRG Urine drug screening test - 04/14/19 02: 08 Urine phencyclidine detection by screening method NEGATIVE NEGATIVE Urine benzodiazepines detection by screening method NEGATIVE NEGATIVE Urine cocaine detection NEGATIVE NEGATI VE Urine amphetamines detection by screening method N EGATIVE NEGATIVE Urine methamphetamine detection by screening method NEGATIVE NEGATIVE Urine cannabinoids detection by screening method N EGATIVE NEGATIVE Urine opiates detection by screening method NEGATI VE NEGATIVE Urine barbiturates detection NEGATIVE N EGATIVE Screening urine tricyclic antidepressants detection NEGATIVE NEGATIVE Urine methadone detection by screening method NEGA TIVE NEGATIVE Urine oxycodone detection NEGATIVE NEGA TIVE Urine propoxyphene detection NEGATIVE N EGATIVE Urine Legionella pneumophila antigen ass ay - 04/14/19 02:08 Urine Legionella pneumophila antigen assay Negativ e NRG Streptococcus pneumoniae antigen detecti on - 04/14/19 02:08 Streptococcus pneumoniae antigen detection Negativ e NRG Bacterial urine culture - 04/14/19 02:08 Bacterial urine culture NG NRG Complete blood count (CBC) with automate d white blood cell (WBC) differential - 04/14/19 03:43 Blood leukocytes automated count (number/volume) 20.9 10*3/uL 4.3-11.0 Blood erythrocytes automated count (number/volume) 4.35 10*6/uL 4.35-5.85 Venous blood hemoglobin measurement (mass/volume) 13.0 g/dL 11.5-16.0 Blood hematocrit (volume fraction) 39 % 35-52 Automated erythrocyte mean corpuscular volume 90 [ foz_us] 80-99 Automated erythrocyte mean corpuscular h emoglobin (mass per erythrocyte) 30 pg 25-34 Automated erythrocyte mean corpuscular h emoglobin concentration measurement (mass/volume) 33 g/dL 32-36 Automated erythrocyte distribution width ratio 13. 3 % 10.0- 14.5 Automated blood platelet count (count/volume) 191 10*3/uL 130-400 Automated blood platelet mean volume measurement 12.4 [foz_us] 7.4-10.4 Automated blood neutrophils/100 leukocytes 88 % 42-75 Automated blood lymphocytes/100 leukocytes 4 % 12-44 Blood monocytes/100 leukocytes 7 % 0-12 Automated blood eosinophils/100 leukocytes 1 % 0-10 Automated blood basophils/100 leukocytes 0 % 0-10 Blood neutrophils automated count (number/volume) 18.3 10*3 1.8-7.8 Blood lymphocytes automated count (number/volume) 0.9 10*3 1.0-4.0 Blood monocytes automated count (number/volume) 1. 6 10*3 0.0-1.0 Automated eosinophil count 0.1 10*3/uL 0 .0-0.3 Automated blood basophil count (count/volume) 0.0 10*3/uL 0.0-0.1 Whole blood basic metabolic panel - 08/26 03:43 Serum or plasma sodium measurement (moles/volume) 137 mmol/L 135-145 Serum or plasma potassium measurement (moles/volume) 4.4 mmol/L 3.6-5.0 Serum or plasma chloride measurement (moles/volume) 105 mmol/L 98-107 Carbon dioxide 19 mmol/L 21-32 Serum or plasma anion gap determination (moles/volume) 13 mmol/L 5-14 Serum or plasma urea nitrogen measurement (mass/volume ) 16 mg/dL 7-18 Serum or plasma creatinine measurement (mass/volume) 1.27 mg/dL 0.60-1.30 Serum or plasma urea nitrogen/creatinine mass ratio 13 NRG Serum or plasma creatinine measurement w ith calculation of estimated glomerular filtration rate 44 NRG Serum or plasma glucose measurement (mass/volume) 216 mg/dL 70-105 Serum or plasma calcium measurement (mass/volume) 8.9 mg/dL 8.5-10.1 Serum or plasma phosphate measurement (m ass/volume) - 04/14/19 03:43 Serum or plasma phosphate measurement (mass/volume) 3.7 mg/dL 2.3-4.7 Magnesium - 04/14/19 03:43 Magnesium 1.6 mg/dL 1.6-2.4 Bacterial blood culture - 04/14/19 06:16 Bacterial blood culture NG NRG Influenza virus A and B antigen detectio n - 04/14/19 06:19 FLU RESULT NEGATIVE FOR INFLUENZA A AND B ANTIGENS BY IA NRG Bacterial blood culture - 04/14/19 06:22 Bacterial blood culture NG NRG Bacterial blood culture - 04/14/19 06:27 Bacterial blood culture NG NRG Capillary blood glucose measurement by g lucometer (mass/volume) - 04/14/19 10:45 Capillary blood glucose measurement by glucometer (mas s/volume) 320 mg/dL 70-110 Arterial blood gas measurement - 0 14:57 Blood pCO2 43 mm[Hg] 35-45 Blood pO2 68 mm[Hg] 79-93 Arterial blood bicarbonate measurement (moles/volume) 23 mmol/L 23-27 Arterial blood base excess by calculation -1.4 mmo l/L -2.5-2.5 Arterial blood oxygen saturation measurement 92 % 94-100 * Inhaled oxygen flow rate 40 NRG Arterial blood pH measurement with patient temperature correction 7.35 7.37-7.43 Arterial blood carbon dioxide, total measurement (mole s/volume) 24.5 mmol/L 21.0-31.0 Body site L RADIAL NRG Assessment of wrist artery patency prior to arterial p uncture YES-POS NRG Setting of ventilation mode NO NR G Measurement of body temperature 37.8 NRG Capillary blood glucose measurement by g lucometer (mass/volume) - 04/14/19 15:44 Capillary blood glucose measurement by glucometer (mas s/volume) 343 mg/dL 70-110 Capillary blood glucose measurement by g lucometer (mass/volume) - 04/14/19 20:58 Capillary blood glucose measurement by glucometer (mas s/volume) 237 mg/dL 70-110 Complete blood count (CBC) with automate d white blood cell (WBC) differential - 04/15/19 03:30 Blood leukocytes automated count (number/volume) 26.6 10*3/uL 4.3-11.0 Blood erythrocytes automated count (number/volume) 4.01 10*6/uL 4.35-5.85 Venous blood hemoglobin measurement (mass/volume) 11.8 g/dL 11.5-16.0 Blood hematocrit (volume fraction) 36 % 35-52 Automated erythrocyte mean corpuscular volume 91 [ foz_us] 80-99 Automated erythrocyte mean corpuscular h emoglobin (mass per erythrocyte) 29 pg 25-34 Automated erythrocyte mean corpuscular h emoglobin concentration measurement (mass/volume) 32 g/dL 32-36 Automated erythrocyte distribution width ratio 13. 5 % 10.0- 14.5 Automated blood platelet count (count/volume) 238 10*3/uL 130-400 Automated blood platelet mean volume measurement 12.3 [foz_us] 7.4-10.4 Automated blood neutrophils/100 leukocytes 88 % 42-75 Automated blood lymphocytes/100 leukocytes 6 % 12-44 Blood monocytes/100 leukocytes 6 % 0-12 Automated blood eosinophils/100 leukocytes 0 % 0-10 Automated blood basophils/100 leukocytes 0 % 0-10 Blood neutrophils automated count (number/volume) 23.3 10*3 1.8-7.8 Blood lymphocytes automated count (number/volume) 1.6 10*3 1.0-4.0 Blood monocytes automated count (number/volume) 1. 7 10*3 0.0-1.0 Automated eosinophil count 0.0 10*3/uL 0 .0-0.3 Automated blood basophil count (count/volume) 0.0 10*3/uL 0.0-0.1 Whole blood basic metabolic panel - /09/26 03:30 Serum or plasma sodium measurement (moles/volume) 135 mmol/L 135-145 Serum or plasma potassium measurement (moles/volume) 4.5 mmol/L 3.6-5.0 Serum or plasma chloride measurement (moles/volume) 102 mmol/L 98-107 Carbon dioxide 21 mmol/L 21-32 Serum or plasma anion gap determination (moles/volume) 12 mmol/L 5-14 Serum or plasma urea nitrogen measurement (mass/volume ) 21 mg/dL 7-18 Serum or plasma creatinine measurement (mass/volume) 0.98 mg/dL 0.60-1.30 Serum or plasma urea nitrogen/creatinine mass ratio 21 NRG Serum or plasma creatinine measurement w ith calculation of estimated glomerular filtration rate 60 NRG Serum or plasma glucose measurement (mass/volume) 232 mg/dL 70-105 Serum or plasma calcium measurement (mass/volume) 9.3 mg/dL 8.5-10.1 Serum or plasma phosphate measurement (m ass/volume) - 04/15/19 03:30 Serum or plasma phosphate measurement (mass/volume) 3.6 mg/dL 2.3-4.7 Magnesium - 04/15/19 03:30 Magnesium 2.4 mg/dL 1.6-2.4 Capillary blood glucose measurement by g lucometer (mass/volume) - 04/15/19 06:43 Capillary blood glucose measurement by glucometer (mas s/volume) 240 mg/dL 70-110 Serum or plasma lithium measurement (mol es/volume) - 04/15/19 07:55 BNP PT 12.3 pg/mL <100.0 PROCALCITONIN (PCT) - 04/15/19 07:55 PROCALCITONIN (PCT) 6.85 ng/mL <0.10 Capillary blood glucose measurement by g lucometer (mass/volume) - 04/15/19 10:38 Capillary blood glucose measurement by glucometer (mas s/volume) 300 mg/dL 70-110 Capillary blood glucose measurement by g lucometer (mass/volume) - 04/15/19 16:02 Capillary blood glucose measurement by glucometer (mas s/volume) 311 mg/dL 70-110 Capillary blood glucose measurement by g lucometer (mass/volume) - 04/15/19 20:43 Capillary blood glucose measurement by glucometer (mas s/volume) 231 mg/dL 70-110 Complete blood count (CBC) with automate d white blood cell (WBC) differential - 04/16/19 03:20 Blood leukocytes automated count (number/volume) 23.3 10*3/uL 4.3-11.0 Blood erythrocytes automated count (number/volume) 3.89 10*6/uL 4.35-5.85 Venous blood hemoglobin measurement (mass/volume) 11.7 g/dL 11.5-16.0 Blood hematocrit (volume fraction) 35 % 35-52 Automated erythrocyte mean corpuscular volume 91 [ foz_us] 80-99 Automated erythrocyte mean corpuscular h emoglobin (mass per erythrocyte) 30 pg 25-34 Automated erythrocyte mean corpuscular h emoglobin concentration measurement (mass/volume) 33 g/dL 32-36 Automated erythrocyte distribution width ratio 13. 0 % 10.0- 14.5 Automated blood platelet count (count/volume) 234 10*3/uL 130-400 Automated blood platelet mean volume measurement 12.5 [foz_us] 7.4-10.4 Automated blood neutrophils/100 leukocytes 88 % 42-75 Automated blood lymphocytes/100 leukocytes 6 % 12-44 Blood monocytes/100 leukocytes 6 % 0-12 Automated blood eosinophils/100 leukocytes 0 % 0-10 Automated blood basophils/100 leukocytes 0 % 0-10 Blood neutrophils automated count (number/volume) 20.6 10*3 1.8-7.8 Blood lymphocytes automated count (number/volume) 1.4 10*3 1.0-4.0 Blood monocytes automated count (number/volume) 1. 3 10*3 0.0-1.0 Automated eosinophil count 0.0 10*3/uL 0 .0-0.3 Automated blood basophil count (count/volume) 0.0 10*3/uL 0.0-0.1 Whole blood basic metabolic panel - 10/27 03:20 Serum or plasma sodium measurement (moles/volume) 137 mmol/L 135-145 Serum or plasma potassium measurement (moles/volume) 4.3 mmol/L 3.6-5.0 Serum or plasma chloride measurement (moles/volume) 103 mmol/L 98-107 Carbon dioxide 24 mmol/L 21-32 Serum or plasma anion gap determination (moles/volume) 10 mmol/L 5-14 Serum or plasma urea nitrogen measurement (mass/volume ) 21 mg/dL 7-18 Serum or plasma creatinine measurement (mass/volume) 0.86 mg/dL 0.60-1.30 Serum or plasma urea nitrogen/creatinine mass ratio 24 NRG Serum or plasma creatinine measurement w ith calculation of estimated glomerular filtration rate > NRG Serum or plasma glucose measurement (mass/volume) 258 mg/dL 70-105 Serum or plasma calcium measurement (mass/volume) 9.4 mg/dL 8.5-10.1 Serum or plasma phosphate measurement (m ass/volume) - 04/16/19 03:20 Serum or plasma phosphate measurement (mass/volume) 3.0 mg/dL 2.3-4.7 Magnesium - 04/16/19 03:20 Magnesium 2.7 mg/dL 1.6-2.4 Comprehensive metabolic panel - 04/16/19 05:50 Serum or plasma sodium measurement (moles/volume) 137 mmol/L 135-145 Serum or plasma potassium measurement (moles/volume) 3.8 mmol/L 3.6-5.0 Serum or plasma chloride measurement (moles/volume) 102 mmol/L 98-107 Carbon dioxide 24 mmol/L 21-32 Serum or plasma anion gap determination (moles/volume) 11 mmol/L 5-14 Serum or plasma urea nitrogen measurement (mass/volume ) 22 mg/dL 7-18 Serum or plasma creatinine measurement (mass/volume) 0.88 mg/dL 0.60-1.30 Serum or plasma urea nitrogen/creatinine mass ratio 25 NRG Serum or plasma creatinine measurement w ith calculation of estimated glomerular filtration rate > NRG Serum or plasma glucose measurement (mass/volume) 275 mg/dL 70-105 Serum or plasma calcium measurement (mass/volume) 9.4 mg/dL 8.5-10.1 Serum or plasma total bilirubin measurement (mass/volu me) 0.3 mg/dL 0.1-1.0 Serum or plasma alkaline phosphatase sayda surement (enzymatic activity/volume) 86 U/L 40-136 Serum or plasma aspartate aminotransfera se measurement (enzymatic activity/volume) 14 U/L 5-34 Serum or plasma alanine aminotransferase measurement (enzymatic activity/volume) 28 U/L 0-55 Serum or plasma protein measurement (mass/volume) 6.6 g/dL 6.4-8.2 Serum or plasma albumin measurement (mass/volume) 3.2 g/dL 3.2-4.5 CALCIUM CORRECTED 10.0 mg/dL 8.5-10.1 Blood lactic acid measurement (moles/vol ume) - 04/16/19 05:50 Blood lactic acid measurement (moles/volume) 2.76 mmol/L 0.50-2.00 PROCALCITONIN (PCT) - 04/16/19 05:50 PROCALCITONIN (PCT) 4.24 ng/mL <0.10 Serum or plasma lactate measurement (mol es/volume) - 04/16/19 07:55 Serum or plasma lactate measurement (moles/volume) 1.02 mmol/L 0.50-2.00 Capillary blood glucose measurement by g lucometer (mass/volume) - 04/16/19 11:35 Capillary blood glucose measurement by glucometer (mas s/volume) 239 mg/dL 70-110 Capillary blood glucose measurement by g lucometer (mass/volume) - 04/16/19 16:19 Capillary blood glucose measurement by glucometer (mas s/volume) 247 mg/dL 70-110 Vancomycin trough - 04/16/19 16:28 Vancomycin trough 18.0 ug/mL 10.0-20.0 Capillary blood glucose measurement by g lucometer (mass/volume) - 04/16/19 20:30 Capillary blood glucose measurement by glucometer (mas s/volume) 274 mg/dL 70-110 Encounters ACCT No. Visit Date/Time Discharge Status Pt. Type Provider Facility Loc./Unit Complaint [id number] 11/07/2018 21:24:00 23:27:00 DIS Emergency SHERIN GUTIÉRREZ MD [facility] ER SOB, ASTHMA [id number] 08/03/2018 00:16:00 02:23:00 DIS Emergency SHERIN GUTIÉRREZ MD [facility] ER ASTHMA ATTACK [id number] 04/13/2019 22:52:[address] Inpatient MILDRED FREITAS, RICHY Baker [facility] ICU SEVERE SEPSIS
[2019-04-18] VITALS (23 sets, daily range): BP systolic 102–171; BP diastolic 68–118
[2019-04-18] MEDS: RT-ALBUTEROL/IPRATROPIUM 3 ML (DUONEB) VIAL IH SCH ×5 (02:13→22:56)
[2019-04-18 03:27] LABS: BASOPHILS # (AUTO) 0.1 10^3/uL (0.0-0.1); BASOPHILS % (AUTO) 0 % (0-10); EOSINOPHILS # (AUTO) 0.6 10^3/uL (0.0-0.3); EOSINOPHILS % (AUTO) 3 % (0-10); HEMATOCRIT 37 % (35-52); HEMOGLOBIN 12.5 G/DL (11.5-16.0); LYMPHOCYTES # (AUTO) 3.4 X 10^3 (1.0-4.0); LYMPHOCYTES % (AUTO) 17 % (12-44); MEAN CORPUSCULAR HEMOGLOBIN 30 PG (25-34); MEAN CORPUSCULAR HGB CONC 34 G/DL (32-36); MEAN CORPUSCULAR VOLUME 89 FL (80-99); MEAN PLATELET VOLUME 11.4 FL (7.4-10.4); MONOCYTES # (AUTO) 1.3 X 10^3 (0.0-1.0); MONOCYTES % (AUTO) 7 % (0-12); NEUTROPHILS # (AUTO) 14.1 X 10^3 (1.8-7.8); NEUTROPHILS % (AUTO) 73 % (42-75); PLATELET COUNT 242 10^3/uL (130-400); WHITE BLOOD COUNT 19.5 10^3/uL (4.3-11.0)
[2019-04-18 03:46] LABS: BUN/CREATININE RATIO 18; CALCIUM 8.3 MG/DL (8.5-10.1); CARBON DIOXIDE 25 MMOL/L (21-32); CHLORIDE 98 MMOL/L (98-107); CREATININE SERUM 0.66 MG/DL (0.60-1.30); GFR ESTIMATED > 60; GLUCOSE 107 MG/DL (70-105); PHOSPHORUS 3.5 MG/DL (2.3-4.7); POTASSIUM 3.6 MMOL/L (3.6-5.0); SODIUM 135 MMOL/L (135-145)
--- NOTE | 2019-04-18 04:21 | Pulmonary Progress Note ---
TRINYASHLEIGHCHRISTIANO MEDICAL STUDENT 04/18/19 0421: Subjective Date Seen by a Provider: Apr 18, 2019 Time Seen by a Provider: 04:16 Subjective/Events-last exam Pt is still having cough and some SOB, but this is unchanged. She reports good pain control with Toradol and morphine. Denies fevers/chills. No new complaints. Review of Systems General: No Chills, No Night Sweats HEENT: No Head Aches, No Visual Changes Pulmonary: Dyspnea, Cough Cardiovascular: No: Palpitations, Edema Gastrointestinal: No: Nausea, Vomiting, Diarrhea, Constipation Genitourinary: No Dysuria, No Frequency Neurological: No: Weakness, Numbness Sepsis Event Evaluation Height, Weight, BMI Height: 5'8" Weight: 248lbs. oz. 112.317568iv; 38.53 BMI Method:Stated Focused Exam Lactate Level 04/16/19 05:50: Lactic Acid Level 2.76*H 04/16/19 07:55: Lactic Acid Level 1.02 Exam Exam Vital Signs Date Time Temp Pulse Resp B/P (MAP) Pulse Ox O2 Delivery O2 Flow Rate FiO2 04/18/19 04:00 106 92 High Flow N/C 6.00 04/18/19 03:00 106 95 High Flow N/C 6.00 04/18/19 02:12 94 Nasal Cannula 5.00 04/18/19 02:00 102 154/99 (117) 96 High Flow N/C 6.00 04/18/19 01:00 102 161/92 (115) 93 High Flow N/C 6.00 04/18/19 01:00 102 04/18/19 00:00 102 153/90 (111) 92 High Flow N/C 6.00 04/18/19 00:00 High Flow N/C 6.00 04/17/19 23:59 36.9 04/17/19 23:00 106 157/96 (116) 98 High Flow N/C 6.00 04/17/19 22:00 101 169/100 (123) 92 High Flow N/C 6.00 04/17/19 21:37 92 Nasal Cannula 5.00 04/17/19 21:00 113 146/89 (108) 96 High Flow N/C 6.00 04/17/19 20:00 High Flow N/C 6.00 04/17/19 20:00 37.2 04/17/19 20:00 117 159/101 (120) 91 High Flow N/C 6.00 04/17/19 19:00 116 04/17/19 19:00 116 159/110 (126) 92 High Flow N/C 6.00 04/17/19 18:25 94 Nasal Cannula 5.00 04/17/19 18:05 37.9 04/17/19 18:00 108 144/99 (114) 91 High Flow N/C 6.00 04/17/19 17:00 117 149/94 (112) 93 High Flow N/C 6.00 04/17/19 16:11 High Flow N/C 6.00 04/17/19 16:00 High Flow N/C 6.00 04/17/19 16:00 37.4 04/17/19 16:00 117 42 168/113 (131) 90 Nasal Cannula 4.00 04/17/19 15:23 36.8 118 93 40 04/17/19 15:00 123 29 172/107 (128) 91 Nasal Cannula 4.00 04/17/19 14:22 93 Nasal Cannula 5.00 04/17/19 14:00 104 42 162/103 (122) 90 Nasal Cannula 4.00 04/17/19 13:00 100 13 146/99 (115) 94 Nasal Cannula 4.00 04/17/19 13:00 101 04/17/19 12:00 96 6 143/92 (109) 96 Nasal Cannula 4.00 04/17/19 12:00 High Flow N/C 4.00 04/17/19 11:31 36.8 04/17/19 11:00 91 34 154/99 (117) 94 Nasal Cannula 4.00 04/17/19 10:00 100 36 152/99 (116) 93 Nasal Cannula 4.00 04/17/19 09:00 112 20 178/110 (132) 91 Nasal Cannula 4.00 04/17/19 08:00 High Flow N/C 4.00 04/17/19 08:00 112 24 160/102 (121) 96 Nasal Cannula 4.00 04/17/19 07:41 96 Nasal Cannula 5.00 04/17/19 07:00 107 23 174/110 (131) 94 Nasal Cannula 4.00 04/17/19 07:00 104 04/17/19 06:00 100 29 149/97 (114) 94 Nasal Cannula 4.00 04/17/19 05:30 100 12 166/105 (125) 93 Nasal Cannula 4.00 04/17/19 05:00 101 187/111 (136) 93 Nasal Cannula 4.00 I & O 04/18/19 07:00 Intake Total 1650 ml Output Total 6745 ml Balance -5095 ml Height & Weight Height: 5'8" Weight: 248lbs. oz. 112.966948rb; 38.53 BMI Method:Stated General Appearance: No Apparent Distress, Obese HEENT: PERRL/EOMI, Pharynx Normal Neck: Normal Inspection, Supple Respiratory: Chest Non Tender, No Respiratory Distress, Rhonci (L sided expiratory rhonchi/wheeze), Other (chest tube, R sided lung sounds clear to auscultation) Cardiovascular: No Murmur, Normal Peripheral Pulses, Tachycardia Capillary Refill: Less Than 3 Seconds Gastrointestinal: normal bowel sounds, non tender, soft Extremity: Normal Inspection, Non Tender, No Pedal Edema Neurologic/Psychiatric: Alert, Oriented x3, Normal Mood/Affect Skin: Normal Color, Warm/Dry Results Lab Laboratory Tests 04/16/19 05:50 04/17/19 03:35 04/18/19 03:04 Assessment/Plan Assessment/Plan Left PNA with sepsis with pleuritis -Continue Cefepime -De [place] O cultures pending -IVF 125 mL/hr -Pt maintaining 90-93% sats on 6L via NC -MRSA swab -- is negative -D/C vancomycin -Influenza - neg at [place] - Repeat New spontaneous PTX -s/p chest tube -PTX resolved -Pt had over 600 cc of fluid out chest tube over last 24hours. -Will wait until there is no airleak and out put is < 100/24hours prior to pulling chest tube. -Pleural fluid gram stain shows gram positive cocci in chains, likely streptococcus. Culture pending. -Pleural fluid analysis reveals WBC>50,000, pH 7.5, glucose 21, likely empyema CP secondary to pleuritis -Controlled with Toradol and morphine Asthma -Continue DuoNebs -Add claritin and singulair Hives - resolved Sinus tach with HTN -Lopressor, labetalol, hydralazine (PRN if not tachycardic) -Monitor Hx RA - She is not taking anything for RA currently TL KRAMER DO 04/18/19 0515: Subjective Time Seen by a Provider: 05:13 Subjective/Events-last exam Pt complains of worsening SOB. Exam Exam General Appearance: Mild Distress, Obese HEENT: PERRL/EOMI, Pharynx Normal Neck: Normal Inspection, Supple Respiratory: No Respiratory Distress Cardiovascular: No Murmur, Normal Peripheral Pulses Gastrointestinal: normal bowel sounds, non tender, soft Extremity: Normal Inspection, Non Tender, No Pedal Edema Neurologic/Psychiatric: Alert, Oriented x3, Normal Mood/Affect Skin: Normal Color, Warm/Dry Assessment/Plan Assessment/Plan Left PNA with sepsis with emphyema -S/p large bore chest tube -Change Cefepime to Rocephin -Continue Vanco for now -De La O cultures pending -MRSA swab -- is negative spontaneous PTX -CXR shows worsening PTX. -- Chest tube has drained around 200ml over last 24 hours. -Will place thoracic vent -s/p large bore chest tube -Will wait until there is no airleak and out put is < 100/24hours prior to pulling chest tube. CP secondary to pleuritis -Controlled with Toradol and morphine Asthma -Continue DuoNebs - claritin and singulair Hives - resolved Sinus tach with HTN -Lopressor, labetalol, hydralazine (PRN if not tachycardic) -Monitor Hx RA - She is not taking anything for RA currently CHRISTIANO CONDE MEDICAL STUDENT Apr 18, 2019 04:21 TL KRAMER DO Apr 18, 2019 05:15
[2019-04-18] MEDS: MAGNESIUM 1 GM/100 ML IVPB 100 ML IV SCH (05:22)
[2019-04-18] MEDS: POTASSIUM CL 10MEQ/50ML IVPB 50 ML IV SCH (05:22)
[2019-04-18] MEDS: inSUlin ASPART (NovoLOG) 1 UNIT/0.01 ML (CHARGE PER UNIT) SC SCH ×8 (05:22→20:20)
[2019-04-18] MEDS: KCL 20 MEQ TAB (K-DUR) PO SCH (05:22)
[2019-04-18] MEDS: CEFEPIME INJECTION 1,000 MG in WATER (STERILE) FOR INJECTION 10 ML IV SCH ×4 (06:51→23:50)
[2019-04-18] MEDS: ENOXAPARIN 40 MG/0.4 ML (LOVENOX) SYR SC SCH (06:51)
[2019-04-18] MEDS: LACTATED RINGERS 1,000 ML IV SCH ×3 (06:52→20:07)
[2019-04-18] MEDS: guaiFENesin/DM (ROBITUSSIN DM) 10 ML UDC PO PRN ×2 (07:07→20:12)
[2019-04-18] MEDS: ALPRAZolam 0.5 MG (XANAX) TAB PO PRN (07:07)
[2019-04-18] MEDS ORDERED: VANCOMYCIN INJECTION 1,000 MG in NS (IVPB) 250 ML IV SCH (07:15)
[2019-04-18] MEDS ORDERED: PHARMACY TO DOSE IV SCH (07:15)
--- NOTE | 2019-04-18 07:22 | NUR ---
PTD VANCOMYCIN LABS: SCR 0.66 PREVIOUS VANCO LEVEL 18.9 PLAN: RESTARTED VANCOMYCIN AT 1,000MG IV Q8 HOURS. WAITING FOR FINAL CULTURES TO RULE OUT MRSA... PRELIMINARY REPORT HAS MSSA.
--- NOTE | 2019-04-18 07:39 | Diagnostic Imaging Report ---
INDICATION: Shortness of breath COMPARISON: 04/17/2019 FINDINGS: Single view of the chest demonstrates stable consolidation in the left base. The left-sided pneumothorax persists and is increased slightly in the left base compared to the prior exam. The apical component is smaller. There is atelectasis in the right base. The heart is prominent without pulmonary edema. IMPRESSION: Slightly enlarging left-sided pneumothorax primarily within the base. Stable consolidation left lung base. Dictated by: Dictated on workstation # [id number]
[2019-04-18] MEDS: VANCOMYCIN 1 GM/NS 250 ML IVPB IV SCH ×6 (08:11→23:50)
[2019-04-18] MEDS ORDERED: CATHETER FLUSH 10 ML SYR IV PRN (08:15)
[2019-04-18] MEDS ORDERED: IOHEXOL 350 MG/ML 100 ML (OMNIPAQUE 350) VIAL IV ONE (08:15)
[2019-04-18] MEDS ORDERED: HOLD METFORMIN - RECEIVED CONTRAST 20 ML VIAL IV SCH (08:15)
[2019-04-18] MEDS ORDERED: NS 100 ML (IVPB) BAG IV ONE (08:15)
--- NOTE | 2019-04-18 08:23 | Progress Note - Hospitalist ---
Subjective HPI/CC On Admission Date Seen by Provider: Apr 18, 2019 Time Seen by Provider: 08:18 Chika Gudaarrama is a 53-year-old female with past medical history of asthma, anxiety, obesity, who presented as a transfer from [place] with severe sepsis due to pneumonia. She reports that she had been feeling very short of breath. She also reports fevers and chills. She reports rigors. She reports nausea. She has had a cough. She developed a rash with hives prior to presenting. She reports pleuritic chest pain. She has pain on the left side with every breath she takes. Subjective/Events-last exam Pt reports still having heaviness with breathing. More tachypneic today. Focused Exam Lactate Level 04/16/19 05:50: Lactic Acid Level 2.76*H 04/16/19 07:55: Lactic Acid Level 1.02 Objective Exam Vital Signs Vital Signs Date Time Temp Pulse Resp B/P (MAP) Pulse Ox O2 Delivery O2 Flow Rate FiO2 04/18/19 06:00 109 158/82 (107) 95 High Flow N/C 6.00 04/17/19 23:59 36.9 04/17/19 16:00 42 04/17/19 15:23 40 Capillary Refill : Less Than 3 Seconds General Appearance: WD/WN, Mild Distress, Obese Respiratory: Decreased Breath Sounds, Other (tachypneic) Cardiovascular: No Murmur, Tachycardia Gastrointestinal: Normal Bowel Sounds, Soft Extremity: No Calf Tenderness, No Pedal Edema Neurologic/Psychiatric: Alert, Oriented x3, Normal Mood/Affect Results/Procedures Lab Laboratory Tests 04/18/19 03:04 Patient resulted labs reviewed. Imaging: Reviewed Imaging Report Assessment/Plan Assessment and Plan Assess & Plan/Chief Complaint Severe sepsis Community acquired pneumonia Acute respiratory failure with hypoxia Spontaneous Pneumothorax Asthma WBC trended down again to 19.5 - Chest tube placed by Dr Yang 04/15 Now on nasal cannula with increased work of breathing today - ABG ordered, CT chest ordered - Discussed with Dr Valdez and Dr Yang regarding possible need for VATS- will await CT results Outside blood cultures with no growth to date per [place] in [place] Continue on cefepime, Vanc added back for staph on culture - await suscept ibilities Continue steroids Pulmonology consulted, appreciate assistance Hypertension - Metoprolol started yesterday - prn hydralazine Hyperglycemia -SSI -likely due to steroids - improving Morbid obesity Clinically significant, no acute management needs DVT prophylaxis: Lovenox Acute kidney injury, resolved Hives, resolved Lactic acidosis, resolved Diagnosis/Problems Diagnosis/Problems (1) Essential (primary) hypertension Status: Chronic (2) Spontaneous pneumothorax Status: Acute (3) Acute respiratory failure with hypoxia Status: Acute (4) Acute kidney injury Status: Resolved Resolution Date/Time: 04/15/19 @ 14:11 (5) Hives Status: Resolved Resolution Date/Time: 04/15/19 @ 14:11 (6) Morbid obesity (7) Severe sepsis Status: Acute (8) Community acquired pneumonia Status: Acute Qualifiers: Laterality: left Lung location: lower lobe of lung Qualified Codes: J18.1 - Lobar pneumonia, unspecified organism (9) Lactic acidosis Status: Resolved Resolution Date/Time: 04/14/19 @ 13:26 (10) Asthma Status: Chronic Qualifiers: Asthma severity: moderate Asthma persistence: persistent Asthma complication type: uncomplicated Qualified Codes: J45.40 - Moderate persistent asthma, uncomplicated (11) Hyperglycemia Status: Acute Clinical Quality Measures DVT/VTE Risk/Contraindication: Risk Factor Score Per Nursin RFS Level Per Nursing on Admit: 4+=Very High JONATHAN DANGELO MD Apr 18, 2019 08:23
[2019-04-18 08:44] LABS: ABG BASE EXCESS 7.2 MMOL/L (-2.5-2.5); ABG OXYGEN SATURATION 87 % (94-100); ABG PCO2 43 MMHG (35-45); ABG PH 7.47 (7.37-7.43); ABG PO2 50 MMHG (79-93); ABG TCO2 32.5 MMOL/L (21.0-31.0)
[2019-04-18 08:45] LABS: ALLENS TEST YES-POS; INSPIRED O2 45%; PATIENT TEMP 36.5; VENTILATOR NO
--- NOTE | 2019-04-18 08:47 | NUR ---
PT TO CT WITH AYDIN NGUYEN.
--- NOTE | 2019-04-18 09:32 | Diagnostic Imaging Report ---
PROCEDURE: CT chest with contrast only. TECHNIQUE: Multiple contiguous axial images were obtained through the chest after administration of intravenous contrast. Auto Exposure Controls were utilized during the CT exam to meet ALARA standards for radiation dose reduction. INDICATION: Pneumonia and sepsis. COMPARISON: Noncontrast CT chest performed on 04/16/2019. FINDINGS: Since the prior study, a large bore left-sided chest tube has been placed. The tip is located in the posterior pleural space in the mid to lower chest. There has been some reexpansion of the left lung when compared with the CT study from 2 days earlier. There is a small residual pneumothorax. There is a small amount of residual fluid in the left pleural space as well. Consolidation in the left upper lobe persists but does appear to be somewhat improved. There continue to be some areas of air cyst formation within the areas of consolidation, largest measuring 3.9 cm. This is consistent with areas of cavitation. There are some areas of low density within the consolidation in the left upper lobe, suspicious for pulmonary abscess formation. There is also some consolidation in the left lower lobe as well. There appears to be some air cyst formation in portions of the posterior left lower lobe as well, increased since the prior CT. The right upper lobe is well aerated. The right middle lobe is well aerated. There are some areas of atelectasis or minimal consolidation in the right lower lobe posteriorly. No right-sided pleural fluid is seen. There is no pericardial effusion. The upper abdomen demonstrates hepatic steatosis. IMPRESSION: 1. Large bore left-sided chest tube placement since the CT of 2 days earlier. There has been partial reexpansion of the left lung although there continue to be areas of consolidation in the left upper and left lower lobes. There is a residual hydropneumothorax present. Air and fluid densities within the areas of consolidation in the left upper and left lower lobe are noted, suspicious for pulmonary microabscess formation. 2. Mild atelectasis or infiltrate in the right lower lobe. 3. Hepatic steatosis. Dictated by: Dictated on workstation # [id number]
[2019-04-18] MEDS: meTOprolol TARTRATE 25 MG (LOPRESSOR) TABLET PO SCH ×2 (09:58→20:12)
[2019-04-18] MEDS: FLUTICASONE NASAL SPRAY (FLONASE) 16 GM BTL NS SCH (09:58)
[2019-04-18] MEDS: LORATADINE (CLARITIN) 10 MG TAB PO SCH (09:58)
[2019-04-18] MEDS: SENNA W/DOCUSATE (SENOKOT S) TABLET PO SCH ×2 (09:58→20:12)
[2019-04-18] MEDS: DOCUSATE SODIUM 100 MG (COLACE) CAP PO SCH ×2 (09:58→20:12)
[2019-04-18] MEDS: FAMOTIDINE 20MG/2ML IV (PEPCID) IVP SCH ×2 (09:58→20:12)
[2019-04-18] MEDS: MONTELUKAST 10 MG (SINGULAIR) TAB PO SCH (10:00)
--- NOTE | 2019-04-18 11:59 | NUR ---
CM/SS spoke with Maria Alejandra from [employer] this morning who stated she would follow up with the patient to check medicaid eligibility. Maria Alejandra follow up with this CM/SS and stated the patient does not have a disability and the house hold is currently bringing in 1,800 with grandson getting medicaid as well and is unsure if they would qualify. Will continue to follow.
[2019-04-18] MEDS: KETOROLAC 15 MG/ML VIAL IVP PRN (12:07)
--- NOTE | 2019-04-18 12:53 | Physical Therapy Daily Note ---
PT Daily Note-Current Subjective Patient in bed pre tx, agrees to PT, has 5/10 pain in her left side. Appearance Patient in recliner post tx with nurse call, phone, tray, SO in room. Mental Status Patient Orientation: Person, Place, Situation Attachments: Oxygen, Drains, Gray Catheter, IV Transfers SCALE: Activities may be completed with or without assistive devices. 8-Prgfniades-fuaduzn completes the activity by him/herself with no assistance from a helper. 5-Set-up or Clean-up Assistance-helper sets up or cleans up; patient completes activity. [place] assists only prior to or following the activity. 4-Supervision or Touching Assistance-helper provides verbal cues and/or touching/steadying and/or contact guard assistance as patient completes activity. Assistance may be provided throughout the activity or intermittently. 3-Partial/Moderate Assistance-helper does LESS THAN HALF the effort. [place] lifts, holds or supports trunk or limbs, but provides less than half the effort. 2-Substantial/Maximal Assistance-helper does MORE THAN HALF the effort. [place] lifts or holds trunk or limbs and provides more than half the effort. 7-Gkiplxyfd-nfartl does ALL the effort. Patient does none of the effort to complete the activity. Or, the assistance of 2 or more helpers is required for the patient to complete the activity. If activity was not attempted, code reason: 7-Patient Refused. 9-Not Applicable-not attempted and the patient did not perform the activity before the current illness, exacerbation or injury. 10-Not Attempted due to Environmental Limitations-(lack of equipment, weather restraints, etc.). 88-Not Attempted due to Medical Conditions or Safety Concerns. Roll Left & Right (QC): 6 Lying to Sitting/Side of Bed(Q: 3 Sit to Stand (QC): 4 Chair/Joy-tb-Qntea Xfer(QC): 4 steady transfers, cues for positioning and safety due to multiple lines Weight Bearing Right Lower Extremity: Right Weight Bearing/Tolerated Left Lower Extremity: Left Weight Bearing/Tolerated Exercises Supine Ex: Ankle pumps, Quad Set, Glut sets Supine Reps: 20 (2 sets of 10) Treatments bed mobility and transfers, LE exercises Assessment Current Status: Fair Progress Patient SOB with minimal activity and has significant pain PT Development Scientist Goals [facility] Goals PT Development Scientist Goals Time Frame: Apr 24, 2019 Roll Left & Right (QC): 6 Sit to Lying (QC): 6 Lying-Sitting on Side/Bed(QC): 6 Sit to Stand (QC): 6 Chair/Yfo-pr-Dvosb Xfer(QC): 6 Toilet Transfer (QC): 6 Walk 10 feet (QC): 4 Walk 50ft with 2 Turns (QC): 4 PT Plan Problem List Problem List: Activity Tolerance, Functional Strength, Safety, Balance, Gait, Transfer, Bed Mobility Treatment/Plan Treatment Plan: Continue Plan of Care Treatment Plan: Bed Mobility, Education, Functional Activity Kai, Functional Strength, Gait, Safety, Therapeutic Exercise, Transfers Treatment Duration: Apr 24, 2019 Frequency: 6 times per week Estimated Hrs Per Day: .25 hour per day Patient and/or Family Agrees t: Yes Safety Risks/Education Patient Education: Transfer Techniques, Correct Positioning, Safety Issues Teaching Recipient: Patient Teaching Methods: Demonstration, Discussion Response to Teaching: Reinforcement Needed Time/GCodes Time In: 1136 Time Out: 1151 Total Billed Treatment Time: 15 Total Billed Treatment 1 visit FA DIANA DRUMMOND PT Apr 18, 2019 12:53
--- NOTE | 2019-04-18 13:44 | NUR ---
DR KRAMER IN ROOM AND SPOKE TO PATIENT AND . NO NEW ORDERS RECEIVED.
--- NOTE | 2019-04-18 14:59 | NUR ---
"RD ASSESSMENT PMHx: Htn; obesity PT INTERACTION: Pt was awake and pleasant during nutrition assessment. Pt states current appetite is poor and has been since her illness (pt wouldn't give a timeframe). Note avg PO intake <50% x2d, per chart review. Pt states following a regular diet at home and has no issues with chewing/swallowing food. Pt states some recent issues with nausea and constipation, and that her last BM was 04/16. Note pt currently on bowel regimen of colace BID; and senna BID, per chart review. Pt states some recent wt gain, but unsure of amount/timeframe. Note recent 25# wt gain x5mon, per chart review. ABNORMAL NUTRITION-RELATED LAB VALUES LOW: Ca 8.3 HIGH: glu 107 Est. kcal needs: 0682-2356 kcal | 15-18 kcal/kg Est. Pro needs: 100-125 g Pro | 0.8-1.0 g Pro/kg PES STATEMENT: Inadequate oral intake (NI-2.1) related to loss of appetite | nausea | constipation as evidenced by pt interview | avg PO intake <50% x2d INTERVENTION: Continue with current diet order of Regular diet. Add Ensure Enlive (vary) to meals TID, for increased kcal intake. Provides 350 kcal and 13 g Pro per serving. Will continue to follow and reassess as pt needs, intake, and status change. MONITOR/EVALUATE: PO Intake; Plan of Care; Hydration Status; Weight Status; Lab Values Spencer Fabian, MS, RD, LD"
--- NOTE | 2019-04-18 15:56 | Consultation - Surgery ---
[facility] 04/18/19 1556: History of Present Illness History of Present Illness Patient Consulted On(rosalinda/time) 04/18/19 15:54 Date Seen by Provider: Apr 18, 2019 Time Seen by Provider: 15:30 Reason for Visit: Consult History of Present Illness Mrs. Guadarrama is a 53 year old female that was transferred from [place] due to severe sepsis from [facility]. We were consulted by the hospitalist. She has a medical history that is pertinent for asthma. She came in complain of SOB, cough, pleuritic left sided chest pain that was aggravated upon taking breathes. Her initial course, she was started on IV Rocephin and Azithromycin, little improvement reported. She was then switched to Cefepime and Vancomycin after her blood results came back positive for MRSA, the sensitivities are still pending. On 04/15 she had a chest tube placed due to the development of a spontaneous p neumothorax, Dr. Yang did this procedure. Her most recent CT of her longs showed stable consolidations of both the upper and lower lobes of the lung. Allergies and Home Medications Allergies Uncoded Allergies: dRUGS THAT AFFECT SERITONIN LEVELS (Allergy, Unknown, 10/15/05) Home Medications Albuterol Sulfate 2.5 Mg/3 Ml Vial.neb, 1 VIAL NEB Q6H PRN for SHORTNESS OF BREATH, (Reported) Fluticasone Propionate 9.9 Ml Amo.susp, 2 SPRAY NS DAILY PRN for CONGESTION, (Reported) Loratadine 10 Mg Tablet, 10 MG PO HS, (Reported) Meloxicam 15 Mg Tablet, 15 MG PO DAILY, (Reported) Montelukast Sodium 10 Mg Tablet, 10 MG PO HS, (Reported) Oxymetazoline HCl 15 Ml Mist, 2 SPRAYS NSEACH PRN PRN for CONGESTION, (Reported) Past Cijdenv-Viuzih-Ekgrxf Hx Patient Social History Alcohol Use: Regular Use (> 2 shots a day) Smoking Status: Former Smoker Former Smoker, Quit: Apr 18, 2019 (20 years ago ) Recent Foreign Travel: No Contact w/Someone Who Travel: Yes Recent Infectious Disease Expo: No Recent Hopitalizations: No Immunizations Up To Date Tetanus Booster (TDap): Unknown Seasonal Allergies Seasonal Allergies: No Surgeries History of Surgeries: Yes Surgeries: Hysterectomy Respiratory History of Respiratory Disorde: Yes Respiratory Disorders: Asthma Cardiovascular History of Cardiac Disorders: Yes Cardiac Disorders: Hypertension Neurological History of Neurological Disord: No 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 System : 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 Genitourinary History of Genitourinary Disor: No Gastrointestinal History of Gastrointestinal Di: No Musculoskeletal History of Musculoskeletal Dis: Yes Musculoskeletal Disorders: Rheumatoid Arthritis Endocrine History of Endocrine Disorders: No HEENT History of HEENT Disorders: No Cancer History of Cancer: No Psychosocial History of Psychiatric Problem: No Integumentary History of Skin or Integumenta: No Blood Transfusions History of Blood Disorders: No Family Medical History Significant Family History: Heart Disease, Cancer (Endometrial - Mother ), CVA (Grandmother ), Diabetes Review of Systems-General Constitutional: chills, fever, weakness EENTM: No hearing loss, No vision loss, No throat pain Respiratory: cough, dyspnea on exertion; No phlegm; short of breath Cardiovascular: chest pain; No palpitations, No syncope Gastrointestinal: No abdominal pain, No constipation, No diarrhea, No nausea, No vomiting Musculoskeletal: No joint pain, No muscle pain, No muscle stiffness, No muscle cramps Skin: No rash; other (rash and hives prior to admission) Psychiatric/Neurological: Denies Anxiety, Denies Headache Physical Exam-General Problems Physical Exam Vital Signs Vital Signs - First Documented 04/14/19 06:45 FiO2 40 Capillary Refill : Less Than 3 Seconds General Appearance: WD/WN, no apparent distress Eyes: Bilateral Eye Normal Inspection, Bilateral Eye PERRL, Bilateral Eye EOMI HEENT: PERRL/EOMI; No photophobia Neck: non-tender, supple Respiratory: no respiratory distress, no accessory muscle use, crackles (Right sideded), wheezing (R > L ) Cardiovascular: regular rate, rhythm, no edema, no gallop, no murmur Peripheral Pulses: 2+ Dorsalis Pedis (R), 2+ Left Dors-Pedis (L), 2+ Radial Pulses (R), 2+ Radial Pulses (L) Gastrointestinal: normal bowel sounds, non tender, soft, no organomegaly, no pulsatile mass; No tenderness Extremities: normal inspection, no pedal edema, no calf tenderness, normal capillary refill Neurologic/Psychiatric: grain drier II-XII nml as tested, no motor/sensory deficits, alert, normal mood/affect, oriented x 3 Skin: normal color, warm/dry Lymphatic: no adenopathy (No posterior, anterior chain adenopathy or axillary adenopathy) Data Review Labs Laboratory Tests 04/17/19 16:15: Glucometer 113H 04/17/19 19:47: Glucometer 122H 04/18/19 03:04: White Blood Count 19.5H, Red Blood Count 4.17L, Hemoglobin 12.5, Hematocrit 37, Mean Corpuscular Volume 89, Mean Corpuscular Hemoglobin 30, Mean Corpuscular Hemoglobin Concent 34, Red Cell Distribution Width 13.0, Platelet Count 242, Mean Platelet Volume 11.4H, Neutrophils (%) (Auto) 73, Lymphocytes (%) (Auto) 17, Monocytes (%) (Auto) 7, Eosinophils (%) (Auto) 3, Basophils (%) (Auto) 0, Neutrophils # (Auto) 14.1H, Lymphocytes # (Auto) 3.4, Monocytes # (Auto) 1.3H, Eosinophils # (Auto) 0.6H, Basophils # (Auto) 0.1, Sodium Level 135, Potassium Level 3.6, Chloride Level 98, Carbon Dioxide Level 25, Anion Gap 12, Blood Urea Nitrogen 12, Creatinine 0.66, Estimat Glomerular Filtration Rate > 60, BUN/Creatinine Ratio 18, Glucose Level 107H, Calcium Level 8.3L, Phosphorus Level 3.5, Magnesium Level 2.0, Procalcitonin 1.35H 04/18/19 08:35: Blood Gas Puncture Site RT RAD, Blood Gas Patient Temperature 36.5, Arterial Blood pH 7.47H, Arterial Blood Partial Pressure CO2 43, Arterial Blood Partial Pressure O2 50L, Arterial Blood HCO3 31H, Arterial Blood Total CO2 32.5H, Arterial Blood Oxygen Saturation 87L, Arterial Blood Base Excess 7.2H, Gennaro Test YES-POS, Blood Gas Ventilator Setting NO, Blood Gas Inspired Oxygen 45% 04/18/19 12:11: Glucometer 169H 04/18/19 15:47: Glucometer 140H Microbiology 04/18/19 Influenza Types A,B Antigen (REFUGIO) - Final, Complete 04/17/19 Gram Stain - Final, Resulted 04/17/19 Body Fluid Culture - Preliminary, Resulted Staphylococcus aureus 04/14/19 Blood Culture - Preliminary, Resulted No growth 04/14/19 Urine Culture - Final, Complete NO GROWTH Assessment/Plan Assessment/Plan Admission Diagonsis Acute Respiratory Failure due to Hypoxemia and Severe sepsis from pneumonia Assessment/Plan Assessment: - Severe Sepsis - CAP - Spontaneous Pneumothorax - Essential HTN - Morbid Obesity Plan: continue IV Cefipime and Vancomycin. VATs if patients condition worsens despite antibiotic therapy or purulent drainage in the chest tube. Clinical Quality Measures DVT/VTE Risk/Contraindication: Risk Factor Score Per Nursin RFS Level Per Nursing on Admit: 4+=Very High SARMAD MENDOZA DO 04/18/19 1823: History of Present Illness History of Present Illness Time Seen by Provider: 15:43 History of Present Illness Pt seen and examined, she appears comfortable without breathing difficulties and states breathing is better than it was. Her pulse Ox is only 92% Allergies and Home Medications Allergies Uncoded Allergies: dRUGS THAT AFFECT SERITONIN LEVELS (Allergy, Unknown, 10/15/05) Home Medications Albuterol Sulfate 2.5 Mg/3 Ml Vial.neb, 1 VIAL NEB Q6H PRN for SHORTNESS OF BREATH, (Reported) Fluticasone Propionate 9.9 Ml Amo.susp, 2 SPRAY NS DAILY PRN for CONGESTION, (Reported) Loratadine 10 Mg Tablet, 10 MG PO HS, (Reported) Meloxicam 15 Mg Tablet, 15 MG PO DAILY, (Reported) Montelukast Sodium 10 Mg Tablet, 10 MG PO HS, (Reported) Oxymetazoline HCl 15 Ml Mist, 2 SPRAYS NSEACH PRN PRN for CONGESTION, (Reported) Patient Home Medication List Home Medication List Reviewed: Yes Past Yexlppm-Ssaulw-Aazrsb Hx Patient Social History Alcohol Use: Regular Use (> 2 shots a day) Smoking Status: Former Smoker Family Medical History Significant Family History: Heart Disease, Cancer (Endometrial - Mother ), CVA (Grandmother ), Diabetes Review of Systems-General Constitutional: chills, fever, weakness EENTM: No hearing loss, No vision loss Respiratory: cough, dyspnea on exertion; No phlegm; short of breath Cardiovascular: chest pain; No palpitations, No syncope Gastrointestinal: No abdominal pain, No constipation, No diarrhea, No nausea, No vomiting Musculoskeletal: No joint pain, No muscle pain, No muscle stiffness, No muscle cramps Skin: No rash; other (rash and hives prior to admission) Psychiatric/Neurological: Denies Anxiety, Denies Depressed; Headache; Denies Tremors Other Pt denies any hx of abnormal bleeding or bruising Physical Exam-General Problems Physical Exam General Appearance: WD/WN, no apparent distress Eyes: Bilateral Eye PERRL, Bilateral Eye EOMI HEENT: No scleral icterus (R), No scleral icterus (L), No photophobia Neck: non-tender, supple Respiratory: no respiratory distress, no accessory muscle use, crackles (Right sideded), wheezing (R > L ) Cardiovascular: regular rate, rhythm, no murmur Gastrointestinal: non tender, soft, no organomegaly; No tenderness Back: no CVA tenderness, no vertebral tenderness Extremities: normal inspection, no pedal edema, no calf tenderness, normal capillary refill Neurologic/Psychiatric: grain drier II-XII nml as tested, no motor/sensory deficits, alert, normal mood/affect, oriented x 3 Skin: normal color, warm/dry Lymphatic: no adenopathy (No posterior, anterior chain adenopathy or axillary adenopathy) Assessment/Plan Assessment/Plan Assessment/Plan Pleural Efffusions and Abscess with multiple Loculations CAP Spontaneous PTX After discussing case with Dr. Valdez and going over the CT; I am not sure this will get better unless she has a decortication. Dr. Valdez is going to board this case for tomorrow. Supervisory-Addendum Brief Verification & Attestation Participated in pt care: history, MDM, physical Personally performed: exam, history, MDM Care discussed with: Medical Student Procedures: n/a Verification and Attestation of Medical Student E/M Service A medical student performed and documented this service. I then reviewed and verified all information documented by the medical student and made modifications to such information, when appropriate. I personally performed a physical exam, medical decision making and then discussed any differences bet ween the notes and made revisions as necessary to create one note. Sarmad Mendoza , 04/18/19 , 18:24 JOANNE RECINOS [facility] Apr 18, 2019 15:56 SARMAD MENDOZA DO Apr 18, 2019 18:23
[2019-04-19] VITALS (22 sets, daily range): BP systolic 116–173; BP diastolic 58–101
[2019-04-19] MEDS: KETOROLAC 15 MG/ML VIAL IVP PRN (01:24)
[2019-04-19] MEDS: RT-ALBUTEROL/IPRATROPIUM 3 ML (DUONEB) VIAL IH SCH ×6 (02:26→22:26)
[2019-04-19 02:58] LABS: BASOPHILS % (AUTO) 0 % (0-10); EOSINOPHILS # (AUTO) 1.1 10^3/uL (0.0-0.3); EOSINOPHILS % (AUTO) 5 % (0-10); HEMATOCRIT 38 % (35-52); HEMOGLOBIN 12.7 G/DL (11.5-16.0); LYMPHOCYTES # (AUTO) 2.8 X 10^3 (1.0-4.0); LYMPHOCYTES % (AUTO) 13 % (12-44); MEAN CORPUSCULAR HEMOGLOBIN 30 PG (25-34); MEAN CORPUSCULAR HGB CONC 34 G/DL (32-36); MEAN CORPUSCULAR VOLUME 89 FL (80-99); MEAN PLATELET VOLUME 11.3 FL (7.4-10.4); MONOCYTES # (AUTO) 1.5 X 10^3 (0.0-1.0); MONOCYTES % (AUTO) 7 % (0-12); NEUTROPHILS # (AUTO) 16.6 X 10^3 (1.8-7.8); NEUTROPHILS % (AUTO) 76 % (42-75); PLATELET COUNT 261 10^3/uL (130-400); RED CELL DISTRIBUTION WIDTH 13.1 % (10.0-14.5)
[2019-04-19 03:22] LABS: BUN/CREATININE RATIO 14; CALCIUM 7.9 MG/DL (8.5-10.1); CARBON DIOXIDE 25 MMOL/L (21-32); CHLORIDE 98 MMOL/L (98-107); CREATININE SERUM 0.69 MG/DL (0.60-1.30); GFR ESTIMATED > 60; GLUCOSE 126 MG/DL (70-105); POTASSIUM 3.6 MMOL/L (3.6-5.0); SODIUM 133 MMOL/L (135-145)
[2019-04-19] MEDS: MAGNESIUM 1 GM/100 ML IVPB 100 ML IV SCH (03:34)
[2019-04-19] MEDS: KCL 20 MEQ TAB (K-DUR) PO SCH (03:34)
[2019-04-19] MEDS: POTASSIUM CL 10MEQ/50ML IVPB 50 ML IV SCH (03:35)
[2019-04-19] MEDS: inSUlin ASPART (NovoLOG) 1 UNIT/0.01 ML (CHARGE PER UNIT) SC SCH ×8 (03:35→21:18)
[2019-04-19] MEDS: ENOXAPARIN 40 MG/0.4 ML (LOVENOX) SYR SC SCH (03:35)
--- NOTE | 2019-04-19 03:36 | NUR ---
AM dose of Lovenox held per Dr Valdez order for possible procedure.
[2019-04-19 04:28] LABS: BAND NEUTROPHILS 1 %; NEUTROPHILS % (MANUAL) 79 %
[2019-04-19 04:29] LABS: EOSINOPHILS % (MANUAL) 2 %; LYMPHOCYTES % (MANUAL) 13 %; MONOCYTES % (MANUAL) 5 %; RBC MORPH NORMAL
[2019-04-19] MEDS ORDERED: fentaNYL INJECTION 100 MCG/2 ML AMP ONE (04:49)
[2019-04-19] MEDS ORDERED: LIDOCAINE 1% INJ 20 ML 20 ML VIAL ONE (04:50)
[2019-04-19] MEDS ORDERED: MIDAZOLAM 5 MG/5 ML (VERSED) VIAL ONE (04:50)
--- NOTE | 2019-04-19 04:59 | NUR ---
Consent obtained for Thora-vent placement per Dr Celia lincoln.
[2019-04-19] MEDS ORDERED: LIDOCAINE 1% INJ 20 ML 20 ML VIAL INJ ONE (05:00)
[2019-04-19] MEDS ORDERED: MIDAZOLAM 2 MG/2 ML (VERSED) VIAL IM ONE (05:00)
[2019-04-19] MEDS ORDERED: fentaNYL INJECTION 100 MCG/2 ML AMP IVP ONE (05:00)
[2019-04-19] MEDS: LACTATED RINGERS 1,000 ML IV SCH ×2 (05:08→15:30)
[2019-04-19] MEDS: CEFEPIME INJECTION 1,000 MG in WATER (STERILE) FOR INJECTION 10 ML IV SCH (05:08)
--- NOTE | 2019-04-19 05:20 | Diagnostic Imaging Report ---
Indication: Shortness of breath Portable chest 3:54 AM There is left basilar consolidation. There is absence of lung markings in the left upper chest suggesting expanding hydropneumothorax. This is increased compared to the previous day. Right lung is clear. IMPRESSION: Left lower lobe consolidation. Left hydropneumothorax has increased compared to the previous day. Dictated by: Dictated on workstation # [id number]
--- NOTE | 2019-04-19 06:21 | NUR ---
Thora-vent placed at bedside by Dr Yang, patient tolerated without difficulty.
[2019-04-19] MEDS ORDERED: cefTRIAXone FOR IV USE 2,000 MG in WATER (STERILE) FOR INJECTION 20 ML IV SCH (07:00)
--- NOTE | 2019-04-19 07:31 | Diagnostic Imaging Report ---
INDICATION: Chest tube, pneumothorax follow-up. EXAMINATION: Chest 04/19/2019 6:24 a.m. Comparison made to 04/19/2019 at 3:54 a.m. FINDINGS: Again noted is a left lower lobe consolidation with likely effusion. Pneumothorax is noted towards the apex. The lucencies have decreased in size since previous imaging but could be due to increasing fluid. No shift of the mediastinum. The heart is stable. Pulmonary vascular unchanged. Right lung stable. IMPRESSION: 1. Stable to decreased size of the left hydropneumothorax with opacities and consolidation at the left lung base. Dictated by: Dictated on workstation # [id number]
--- NOTE | 2019-04-19 08:21 | Progress Note - Surgery ---
JOANNE RECINOS [facility] 04/19/19 0821: Subjective Date Seen by a Provider: Apr 19, 2019 Time Seen by a Provider: 08:05 Subjective/Events-last exam Patient states that she is experiencing some mild chest tightness, denies SOB or chest pain. She has no further complaints at time of interview. Review of Systems General: No Chills, No Night Sweats HEENT: No Head Aches, No Dysphasia Pulmonary: No Dyspnea; Other (Chest tightness) Cardiovascular: No: Chest Pain, Palpitations, Lt Headedness Gastrointestinal: No: Nausea, Vomiting, Abdominal Pain, Diarrhea, Constipation Genitourinary: No Dysuria, No Frequency, No Incontinence Musculoskeletal: No: neck pain, shoulder pain, arm pain, back pain Neurological: No: Weakness, Numbness Focused Exam Respiratory: No Accessory Muscle Use, No Respiratory Distress, Decreased Breath Sounds Cardiovascular: Regular Rate, Rhythm, No Edema, No Gallop, No Murmur, Normal Peripheral Pulses Peripheral Pulses: 2+ Dorsalis Pedis (R), 2+ Left Dors-Pedis (L), 2+ Radial Pulses (R), 2+ Radial Pulses (L) Objective Exam Vital Signs Date Time Temp Pulse Resp B/P (MAP) Pulse Ox O2 Delivery O2 Flow Rate FiO2 04/19/19 08:00 36.2 04/19/19 07:00 108 04/19/19 06:00 109 26 164/101 (122) 95 High Flow N/C 8.00 04/19/19 05:00 107 26 98 High Flow N/C 8.00 04/19/19 04:00 93 High Flow N/C 8.00 04/19/19 04:00 112 28 148/93 (111) 94 High Flow N/C 8.00 04/19/19 04:00 36.5 103 28 148/93 (111) 94 High Flow N/C 8.00 04/19/19 03:00 101 34 151/95 (113) 94 High Flow N/C 8.00 04/19/19 02:26 94 High Flow N/C 8.00 04/19/19 02:00 105 32 153/100 (117) 95 High Flow N/C 8.00 04/19/19 01:00 109 26 148/101 (117) 93 High Flow N/C 8.00 04/19/19 01:00 111 3/12/20 00:00 26 130/85 (100) 93 High Flow N/C 8.00 04/18/19 23:50 95 High Flow N/C 8.00 04/18/19 23:45 36.6 High Flow N/C 8.00 04/18/19 23:00 27 102/79 (87) 93 High Flow N/C 8.00 04/18/19 22:56 92 High Flow N/C 8.00 04/18/19 22:00 103 27 147/95 (112) 93 High Flow N/C 8.00 04/18/19 21:00 108 24 150/101 (117) 97 High Flow N/C 8.00 04/18/19 20:00 37.0 04/18/19 20:00 117 25 159/103 (121) 96 High Flow N/C 8.00 04/18/19 19:30 91 High Flow N/C 8.00 04/18/19 19:24 91 High Flow N/C 8.00 04/18/19 19:00 114 04/18/19 19:00 113 21 157/98 (117) 95 High Flow N/C 8.00 04/18/19 19:00 36.7 High Flow N/C 8.00 04/18/19 18:00 115 42 157/92 (113) 90 High Flow N/C 6.00 04/18/19 17:00 106 50 146/89 (108) 94 High Flow N/C 6.00 04/18/19 16:30 High Flow N/C 6.00 04/18/19 16:00 36.8 04/18/19 16:00 105 44 128/89 (102) 94 High Flow N/C 6.00 04/18/19 15:00 106 35 139/92 (108) 93 High Flow N/C 6.00 04/18/19 14:00 101 33 122/94 (103) 94 High Flow N/C 6.00 04/18/19 13:00 36.6 04/18/19 13:00 97 35 111/68 (82) 95 High Flow N/C 6.00 04/18/19 12:45 99 04/18/19 12:30 High Flow N/C 6.00 3/11/20 12:27 95 Nasal Cannula 5.00 04/18/19 12:00 100 49 161/99 (119) 97 High Flow N/C 6.00 04/18/19 11:00 32 163/118 (133) 93 High Flow N/C 6.00 04/18/19 10:00 47 159/109 (126) 92 High Flow N/C 6.00 04/18/19 09:00 110 47 160/102 (121) 92 High Flow N/C 6.00 I & O 04/19/19 06:59 Intake Total 4655 ml Output Total 4080 ml Balance 575 ml Capillary Refill : Less Than 3 Seconds General Appearance: WD/WN, Mild Distress, Obese Neck: Normal Inspection, Supple Respiratory: No Accessory Muscle Use, No Respiratory Distress, Decreased Breath Sounds (L sided ), Other (tachypneic) Cardiovascular: Regular Rate, Rhythm, No Edema, No Gallop, No Murmur, Normal Peripheral Pulses, Tachycardia Peripheral Pulses: 2+ Dorsalis Pedis (R), 2+ Left Dors-Pedis (L), 2+ Radial Pulses (R), 2+ Radial Pulses (L) Gastrointestinal: non tender, soft, no organomegaly; No tenderness Extremity: Normal Capillary Refill, Non Tender, No Calf Tenderness, No Pedal Edema Neurologic/Psychiatric: Alert, Oriented x3, Normal Mood/Affect Skin: Normal Color, Warm/Dry Results Lab Laboratory Tests 04/18/19 08:35: Blood Gas Puncture Site RT RAD, Blood Gas Patient Temperature 36.5, Arterial Blood pH 7.47H, Arterial Blood Partial Pressure CO2 43, Arterial Blood Partial Pressure O2 50L, Arterial Blood HCO3 31H, Arterial Blood Total CO2 32.5H, Arterial Blood Oxygen Saturation 87L, Arterial Blood Base Excess 7.2H, Gennaro Test YES-POS, Blood Gas Ventilator Setting NO, Blood Gas Inspired Oxygen 45% 04/18/19 12:11: Glucometer 169H 04/18/19 15:47: Glucometer 140H 04/18/19 20:01: Glucometer 119H 04/19/19 02:24: White Blood Count 22.0H, Red Blood Count 4.27L, Hemoglobin 12.7, Hematocrit 38, Mean Corpuscular Volume 89, Mean Corpuscular Hemoglobin 30, Mean Corpuscular Hemoglobin Concent 34, Red Cell Distribution Width 13.1, Platelet Count 261, Mean Platelet Volume 11.3H, Neutrophils (%) (Auto) 76H, Lymphocytes (%) (Auto) 13, Monocytes (%) (Auto) 7, Eosinophils (%) (Auto) 5, Basophils (%) (Auto) 0, Neutrophils # (Auto) 16.6H, Lymphocytes # (Auto) 2.8, Monocytes # (Auto) 1.5H, Eosinophils # (Auto) 1.1H, Basophils # (Auto) 0.0, Neutrophils % (Manual) 79, Lymphocytes % (Manual) 13, Monocytes % (Manual) 5, Eosinophils % (Manual) 2, Band Neutrophils 1, Blood Morphology Comment NORMAL, Sodium Level 133L, Potassium Level 3.6, Chloride Level 98, Carbon Dioxide Level 25, Anion Gap 10, Blood Urea Nitrogen 10, Creatinine 0.69, Estimat Glomerular Filtration Rate > 60, BUN/Creatinine Ratio 14, Glucose Level 126H, Calcium Level 7.9L, Phosphorus Level 3.0, Magnesium Level 2.0 Microbiology 04/18/19 Influenza Types A,B Antigen (REFUGIO) - Final, Complete 04/17/19 Gram Stain - Final, Resulted 04/17/19 Body Fluid Culture - Preliminary, Resulted Staphylococcus aureus 04/14/19 Blood Culture - Preliminary, Resulted No growth 04/14/19 Urine Culture - Final, Complete NO GROWTH Assessment/Plan Assessment/Plan Assessment/Plan CAP Multiple Loculation Spontaneous Pneumothorax - Patient has Thoravac on - drained 1200 since insertion. - Chest tube - Continue Antibiotic therapy Clinical Quality Measures DVT/VTE Risk/Contraindication: Risk Factor Score Per Nursin RFS Level Per Nursing on Admit: 4+=Very High SARMAD MENDOZA DO 04/19/19 1020: Subjective Time Seen by a Provider: 09:41 Subjective/Events-last exam Pt seen and examined, feeling a little better after placement of Thora-vent. Review of Systems General: No Chills, No Night Sweats Pulmonary: Dyspnea, Pleuritic Chest Pain, Other (Chest tightness) Cardiovascular: No: Chest Pain, Palpitations Gastrointestinal: No: Nausea, Vomiting, Abdominal Pain Objective Exam General Appearance: WD/WN, Mild Distress, Obese Respiratory: No Accessory Muscle Use, No Respiratory Distress, Decreased Breath Sounds (L sided ) Cardiovascular: Regular Rate, Rhythm, No Murmur Gastrointestinal: non tender, soft, no organomegaly Assessment/Plan Assessment/Plan Assessment/Plan Pleural Abscess with Multiple Loculations Pneumonia Spontaneous PTX - twice There was a plan for possible VATS today; however, it was felt that surgery would be better if the peel matured for decortication. Therefore, because pt is stable the plan is IV ABX, supportive care and surgery in a week or so. Supervisory-Addendum Brief Verification & Attestation Participated in pt care: history, MDM, physical Personally performed: exam, history, MDM Care discussed with: Medical Student Procedures: n/a Verification and Attestation of Medical Student E/M Service A medical student performed and documented this service. I then reviewed and verified all information documented by the medical student and made modifications to such information, when appropriate. I personally performed a physical exam, medical decision making and then discussed any differences between the notes and made revisions as necessary to create one note. Sarmad Mendoza , 04/19/19 , 10:20 JOANNE RECINOS [facility] Apr 19, 2019 08:21 SARMAD MENDOZA DO Apr 19, 2019 10:20
--- NOTE | 2019-04-19 08:29 | Physical Therapy Daily Note ---
PT Daily Note-Current Subjective /Patient in bed pre tx, agrees to PT, has 3/10 pain in left side, has another chest tube, she states it was put in just a few hours ago. Appearance Patient in recliner post tx with nurse call, phone, tray, all needs met, family in room. Mental Status Patient Orientation: Normal For Age Attachments: Oxygen, Drains, Gray Catheter, IV Transfers SCALE: Activities may be completed with or without assistive devices. 7-Xntvnzvumx-jxoeswa completes the activity by him/herself with no assistance from a helper. 5-Set-up or Clean-up Assistance-helper sets up or cleans up; patient completes activity. [place] assists only prior to or following the activity. 4-Supervision or Touching Assistance-helper provides verbal cues and/or touching/steadying and/or contact guard assistance as patient completes activity. Assistance may be provided throughout the activity or intermittently. 3-Partial/Moderate Assistance-helper does LESS THAN HALF the effort. [place] lifts, holds or supports trunk or limbs, but provides less than half the effort. 2-Substantial/Maximal Assistance-helper does MORE THAN HALF the effort. [place] lifts or holds trunk or limbs and provides more than half the effort. 0-Bcdbkzwkj-uemuox does ALL the effort. Patient does none of the effort to complete the activity. Or, the assistance of 2 or more helpers is required for the patient to complete the activity. If activity was not attempted, code reason: 7-Patient Refused. 9-Not Applicable-not attempted and the patient did not perform the activity before the current illness, exacerbation or injury. 10-Not Attempted due to Environmental Limitations-(lack of equipment, weather restraints, etc.). 88-Not Attempted due to Medical Conditions or Safety Concerns. Roll Left & Right (QC): 6 Lying to Sitting/Side of Bed(Q: 6 Sit to Stand (QC): 6 Weight Bearing Right Lower Extremity: Right Weight Bearing/Tolerated Left Lower Extremity: Left Weight Bearing/Tolerated Gait Training Distance: 3' Gait Assistive Device: FWW SBA Exercises Seated Therapy Exercises: Ankle pumps, Long arc quads, Hip flexion Seated Reps: 10 Standing: Mini squats Standing Reps: 10 Treatments bed mobility and transfers, ambulation, LE exercise Assessment Current Status: Fair Progress improved general mobility, less pain PT Receiving Operator Goals Fdc Goals PT Fdc Goals Time Frame: Apr 24, 2019 Roll Left & Right (QC): 6 Sit to Lying (QC): 6 Lying-Sitting on Side/Bed(QC): 6 Sit to Stand (QC): 6 Chair/Urb-vx-Vmeqv Xfer(QC): 6 Toilet Transfer (QC): 6 Walk 10 feet (QC): 4 Walk 50ft with 2 Turns (QC): 4 PT Plan Problem List Problem List: Activity Tolerance, Functional Strength, Safety, Balance, Gait, Transfer Treatment/Plan Treatment Plan: Continue Plan of Care Treatment Plan: Bed Mobility, Education, Functional Activity Kai, Functional Strength, Gait, Safety, Therapeutic Exercise, Transfers Treatment Duration: Apr 24, 2019 Frequency: 6 times per week Estimated Hrs Per Day: .25 hour per day Patient and/or Family Agrees t: Yes Safety Risks/Education Patient Education: Gait Training, Transfer Techniques, Correct Positioning, Safety Issues Teaching Recipient: Patient Teaching Methods: Demonstration, Discussion Response to Teaching: Reinforcement Needed Time/GCodes Time In: 0815 Time Out: 08 Total Billed Treatment Time: 15 Total Billed Treatment 1 visit FA DIANA DRUMMOND PT Apr 19, 2019 08:29
[2019-04-19] MEDS: SENNA W/DOCUSATE (SENOKOT S) TABLET PO SCH ×2 (09:10→20:45)
[2019-04-19] MEDS: meTOprolol TARTRATE 25 MG (LOPRESSOR) TABLET PO SCH ×2 (09:10→20:45)
[2019-04-19] MEDS: DOCUSATE SODIUM 100 MG (COLACE) CAP PO SCH ×2 (09:10→20:45)
[2019-04-19] MEDS: MONTELUKAST 10 MG (SINGULAIR) TAB PO SCH (09:10)
[2019-04-19] MEDS: LORATADINE (CLARITIN) 10 MG TAB PO SCH (09:10)
[2019-04-19] MEDS: VANCOMYCIN 1 GM/NS 250 ML IVPB IV SCH ×4 (09:10→17:02)
[2019-04-19] MEDS: FLUTICASONE NASAL SPRAY (FLONASE) 16 GM BTL NS SCH (09:10)
[2019-04-19] MEDS: FAMOTIDINE 20MG/2ML IV (PEPCID) IVP SCH ×2 (09:11→20:45)
--- NOTE | 2019-04-19 09:18 | Progress Note - Hospitalist ---
Subjective HPI/CC On Admission Date Seen by Provider: Apr 19, 2019 Time Seen by Provider: 07:45 Chika Guadarrama is a 53-year-old female with past medical history of asthma, anxiety, obesity, who presented as a transfer from [place] with severe sepsis due to pneumonia. She reports that she had been feeling very short of breath. She also reports fevers and chills. She reports rigors. She reports nausea. She has had a cough. She developed a rash with hives prior to presenting. She reports pleuritic chest pain. She has pain on the left side with every breath she takes. Subjective/Events-last exam Pt reports feeling better today. About to get up with PT. Another chest tube placed today. Objective Exam Vital Signs Vital Signs Date Time Temp Pulse Resp B/P (MAP) Pulse Ox O2 Delivery O2 Flow Rate FiO2 04/19/19 08:00 115 26 153/94 (113) 96 High Flow N/C 8.00 04/19/19 08:00 36.2 04/17/19 15:23 40 Capillary Refill : Less Than 3 Seconds General Appearance: No Apparent Distress, Obese Respiratory: Rhonci, Other (chest tubes in place, on HFNC) Cardiovascular: No JVD, No Murmur, Tachycardia Gastrointestinal: Normal Bowel Sounds, Non Tender, Soft Neurologic/Psychiatric: Alert, Oriented x3, Normal Mood/Affect Results/Procedures Lab Laboratory Tests 04/19/19 02:24 Patient resulted labs reviewed. Imaging: Reviewed Imaging Report Assessment/Plan Assessment and Plan Assess & Plan/Chief Complaint Severe sepsis Community acquired pneumonia Acute respiratory failure with hypoxia Spontaneous Pneumothorax Asthma WBC trended down again to 19.5 - Chest tube placed by Dr Yang 04/15, second chest tube placed 04/[address] Yang - Surgery consulted for potential need for VATS Continue on cefepime, Vanc added back for staph on culture Continue steroids Pulmonology consulted, appreciate assistance Hypertension - Metoprolol - prn hydralazine Hyperglycemia - SSI - likely due to steroids - improving Morbid obesity Clinically significant, no acute management needs DVT prophylaxis: Lovenox Acute kidney injury, resolved Hives, resolved Lactic acidosis, resolved Diagnosis/Problems Diagnosis/Problems (1) Essential (primary) hypertension Status: Chronic (2) Spontaneous pneumothorax Status: Acute (3) Acute respiratory failure with hypoxia Status: Acute (4) Acute kidney injury Status: Resolved Resolution Date/Time: 3/8/20 @ 14:11 (5) Hives Status: Resolved Resolution Date/Time: 04/15/19 @ 14:11 (6) Morbid obesity (7) Severe sepsis Status: Acute (8) Community acquired pneumonia Status: Acute Qualifiers: Laterality: left Lung location: lower lobe of lung Qualified Codes: J18.1 - Lobar pneumonia, unspecified organism (9) Lactic acidosis Status: Resolved Resolution Date/Time: 04/14/19 @ 13:26 (10) Asthma Status: Chronic Qualifiers: Asthma severity: moderate Asthma persistence: persistent Asthma complication type: uncomplicated Qualified Codes: J45.40 - Moderate persistent asthma, uncomplicated (11) Hyperglycemia Status: Acute Clinical Quality Measures DVT/VTE Risk/Contraindication: Risk Factor Score Per Nursin RFS Level Per Nursing on Admit: 4+=Very High JONATHAN DANGELO MD Apr 19, 2019 09:17
[2019-04-19] MEDS ORDERED: IBUPROFEN 600 MG (MOTRIN) TAB PO PRN (09:45)
--- NOTE | 2019-04-19 10:00 | NUR ---
Pt in recliner from PT et ready to go back to bed. Pt assisted with lines et tubes et back to bed. Pt expresses being very tired. Will attempt to rest
--- NOTE | 2019-04-19 10:48 | Pulmonary Procedures ---
Pulmonary Procedures Date of Procedure Date of Service: Apr 19, 2019 Chest Tube : Chest Tube Position: Left (ant chest) Chest Tube Location: Anterior Chest Chest Tube Procedure: betadine prep, sterile drapes applied, sterile dressing applied Anesthesia: 1% Lidocaine Volume Anesthetic (ccs): 5 Faustin of Air [place]: No Number of Attempts: 1 Tube Drainage: see nurses notes Post Procedure CXR?: Yes TL KRAMER DO Apr 19, 2019 10:48
--- NOTE | 2019-04-19 13:50 | NUR ---
This RN assisted PCT et pt given bed bath with linens changed. Pt states she feels better et more refresehed. Dr. Yang contacted et repeat CXR ordered.
--- NOTE | 2019-04-19 14:09 | Diagnostic Imaging Report ---
EXAMINATION: Chest 1 view HISTORY: Follow-up left pneumothorax. COMPARISON: Chest radiograph performed earlier the same date. FINDINGS: There is been repositioning of the left-sided chest tube with the tip overlying the mid left lung. There is decreased left-sided hydropneumothorax compared to the prior exam. Continued consolidative opacities are seen in the mid and lower left lung. No evidence of mediastinal shift. The right hemithorax is well aerated. The cardiac silhouette is stable. No acute osseous abnormalities. IMPRESSION: 1. Repositioning of the left-sided chest tube with interval decrease in left-sided hydropneumothorax. No evidence of mediastinal shift. 2. Continued consolidative opacities in the mid and lower left lung, which may represent atelectasis and/or infection. Dictated by: Dictated on workstation # [id number]
[2019-04-19] MEDS ORDERED: TROUGH ORDER-PHARMACY XX NR (15:00)
[2019-04-19] MEDS: morphine INJ 4 MG/ML 1 ML (VIAL/SYRINGE) IVP PRN ×2 (15:27→19:53)
[2019-04-19] MEDS: ALPRAZolam 0.5 MG (XANAX) TAB PO PRN (20:45)
[2019-04-20] VITALS (24 sets, daily range): BP systolic 113–141; BP diastolic 65–90
[2019-04-20] MEDS: VANCOMYCIN 1 GM/NS 250 ML IVPB IV SCH ×6 (00:19→14:44)
[2019-04-20] MEDS: morphine INJ 4 MG/ML 1 ML (VIAL/SYRINGE) IVP PRN ×4 (00:19→17:00)
[2019-04-20] MEDS: diphenhydrAMINE 25 MG TAB (BENADRYL) PO PRN (00:23)
[2019-04-20] MEDS: LACTATED RINGERS 1,000 ML IV SCH ×4 (00:27→14:44)
[2019-04-20] MEDS: RT-ALBUTEROL/IPRATROPIUM 3 ML (DUONEB) VIAL IH SCH ×3 (02:28→10:54)
[2019-04-20 03:08] LABS: BASOPHILS % (AUTO) 0 % (0-10); EOSINOPHILS % (AUTO) 5 % (0-10); HEMATOCRIT 36 % (35-52); HEMOGLOBIN 12.1 G/DL (11.5-16.0); LYMPHOCYTES # (AUTO) 2.8 X 10^3 (1.0-4.0); LYMPHOCYTES % (AUTO) 12 % (12-44); MEAN CORPUSCULAR HEMOGLOBIN 30 PG (25-34); MEAN CORPUSCULAR HGB CONC 34 G/DL (32-36); MEAN CORPUSCULAR VOLUME 89 FL (80-99); MEAN PLATELET VOLUME 11.4 FL (7.4-10.4); MONOCYTES # (AUTO) 1.8 X 10^3 (0.0-1.0); MONOCYTES % (AUTO) 8 % (0-12); NEUTROPHILS # (AUTO) 17.4 X 10^3 (1.8-7.8); NEUTROPHILS % (AUTO) 76 % (42-75); PLATELET COUNT 277 10^3/uL (130-400); RED CELL DISTRIBUTION WIDTH 13.4 % (10.0-14.5)
[2019-04-20 03:26] LABS: BUN/CREATININE RATIO 12; CALCIUM 7.8 MG/DL (8.5-10.1); CARBON DIOXIDE 24 MMOL/L (21-32); CHLORIDE 100 MMOL/L (98-107); CREATININE SERUM 0.66 MG/DL (0.60-1.30); GFR ESTIMATED > 60; GLUCOSE 145 MG/DL (70-105); MAGNESIUM 2.1 MG/DL (1.6-2.4); PHOSPHORUS 3.1 MG/DL (2.3-4.7); POTASSIUM 3.8 MMOL/L (3.6-5.0); SODIUM 135 MMOL/L (135-145)
[2019-04-20] MEDS: POTASSIUM CL 10MEQ/50ML IVPB 50 ML IV SCH (03:55)
[2019-04-20] MEDS: MAGNESIUM 1 GM/100 ML IVPB 100 ML IV SCH (03:56)
[2019-04-20] MEDS: KCL 20 MEQ TAB (K-DUR) PO SCH (03:56)
--- NOTE | 2019-04-20 04:30 | Pulmonary Progress Note ---
Subjective Date Seen by a Provider: Apr 19, 2019 (Late note) Time Seen by a Provider: 04:30 Sepsis Event Evaluation Height, Weight, BMI Height: 5'8" Weight: 248lbs. oz. 112.962529cy; 38.53 BMI Method:Stated Exam Exam Vital Signs Date Time Temp Pulse Resp B/P (MAP) Pulse Ox O2 Delivery O2 Flow Rate FiO2 04/20/19 04:00 36.8 04/20/19 04:00 96 High Flow N/C 8.00 04/20/19 02:28 91 High Flow N/C 8.00 04/20/19 01:00 112 04/20/19 00:13 37.2 04/20/19 00:00 96 High Flow N/C 8.00 04/19/19 23:00 117 42 127/83 (98) 92 High Flow N/C 8.00 04/19/19 22:26 93 High Flow N/C 8.00 04/19/19 22:00 112 31 123/78 (93) 93 High Flow N/C 8.00 04/19/19 21:00 111 31 138/74 (95) 94 High Flow N/C 8.00 04/19/19 20:00 96 High Flow N/C 8.00 04/19/19 20:00 117 27 130/68 (88) 94 High Flow N/C 8.00 04/19/19 19:06 37.7 04/19/19 19:00 113 36 124/75 (91) 92 High Flow N/C 8.00 04/19/19 19:00 114 04/19/19 18:44 93 High Flow N/C 8.00 04/19/19 18:00 112 30 116/78 (91) 94 High Flow N/C 8.00 04/19/19 17:00 107 27 132/78 (96) 94 High Flow N/C 8.00 04/19/19 16:00 96 High Flow N/C 8.00 04/19/19 16:00 96 39 128/58 (81) 94 High Flow N/C 8.00 04/19/19 15:14 36.1 04/19/19 15:12 96 High Flow N/C 8.00 04/19/19 15:00 93 23 120/74 (89) High Flow N/C 8.00 04/19/19 13:00 93 28 122/77 (92) 95 High Flow N/C 8.00 04/19/19 12:45 97 04/19/19 12:16 36.3 04/19/19 12:00 93 High Flow N/C 8.00 04/19/19 12:00 93 28 122/74 (90) 96 High Flow N/C 8.00 04/19/19 11:00 97 28 122/75 (91) 94 High Flow N/C 8.00 04/19/19 10:00 94 30 123/81 (95) 94 High Flow N/C 8.00 04/19/19 09:54 94 Nasal Cannula 8.00 04/19/19 09:00 105 162/98 (119) 99 High Flow N/C 8.00 04/19/19 08:00 115 26 153/94 (113) 96 High Flow N/C 8.00 04/19/19 08:00 93 High Flow N/C 8.00 04/19/19 08:00 36.2 04/19/19 07:00 108 04/19/19 07:00 111 28 173/98 (123) 95 High Flow N/C 8.00 04/19/19 06:00 109 26 164/101 (122) 95 High Flow N/C 8.00 04/19/19 05:00 107 26 98 High Flow N/C 8.00 I & O 04/20/19 07:00 Intake Total 3020 ml Output Total 2000 ml Balance 1020 ml Height & Weight Height: 5'8" Weight: 248lbs. oz. 112.884768hi; 38.53 BMI Method:Stated General Appearance: Mild Distress, Obese HEENT: PERRL/EOMI, Pharynx Normal Neck: Normal Inspection, Supple Respiratory: No Respiratory Distress Cardiovascular: No Murmur, Normal Peripheral Pulses Capillary Refill: Less Than 3 Seconds Peripheral Pulses: 2+ Dorsalis Pedis (R), 2+ Left Dors-Pedis (L), 2+ Radial Pulses (R), 2+ Radial Pulses (L) Gastrointestinal: normal bowel sounds, non tender, soft Extremity: Normal Inspection, Non Tender, No Pedal Edema Neurologic/Psychiatric: Alert, Oriented x3, Normal Mood/Affect Skin: Normal Color, Warm/Dry Results Lab Laboratory Tests 04/19/19 02:24 04/20/19 02:50 Assessment/Plan Assessment/Plan Left PNA with sepsis with pleuritis -Continue Cefepime -[place] cultures pending -IVF 125 mL/hr -Pt maintaining 90-93% sats on 6L via NC -MRSA swab -- is negative -Influenza - neg at [place] [facility] - Repeat New spontaneous PTX -s/p chest tube -PTX resolved -Pt had over 600 cc of fluid out chest tube over last 24hours. -Will wait until there is no airleak and out put is < 100/24hours prior to pulling chest tube. -Pleural fluid gram stain shows gram positive cocci in chains, likely streptococcus. Culture pending. -Pleural fluid analysis reveals WBC>50,000, pH 7.5, glucose 21, likely empyema CP secondary to pleuritis -Controlled with Toradol and morphine Asthma -Continue DuoNebs -Add claritin and singulair Hives - resolved Sinus tach with HTN -Lopressor, labetalol, hydralazine (PRN if not tachycardic) -Monitor Hx RA - She is not taking anything for RA currently TL KRAMER DO Apr 20, 2019 04:30
--- NOTE | 2019-04-20 04:33 | Pulmonary Progress Note ---
Subjective Time Seen by a Provider: 04:30 Subjective/Events-last exam Pt states SOB is about the same. No fevers Sepsis Event Evaluation Height, Weight, BMI Height: 5'8" Weight: 248lbs. oz. 112.247874hj; 38.53 BMI Method:Stated Exam Exam Vital Signs Date Time Temp Pulse Resp B/P (MAP) Pulse Ox O2 Delivery O2 Flow Rate FiO2 04/20/19 04:00 36.8 04/20/19 04:00 96 High Flow N/C 8.00 04/20/19 02:28 91 High Flow N/C 8.00 04/20/19 01:00 112 04/20/19 00:13 37.2 04/20/19 00:00 96 High Flow N/C 8.00 04/19/19 23:00 117 42 127/83 (98) 92 High Flow N/C 8.00 04/19/19 22:26 93 High Flow N/C 8.00 04/19/19 22:00 112 31 123/78 (93) 93 High Flow N/C 8.00 04/19/19 21:00 111 31 138/74 (95) 94 High Flow N/C 8.00 04/19/19 20:00 96 High Flow N/C 8.00 04/19/19 20:00 117 27 130/68 (88) 94 High Flow N/C 8.00 04/19/19 19:06 37.7 04/19/19 19:00 113 36 124/75 (91) 92 High Flow N/C 8.00 04/19/19 19:00 114 04/19/19 18:44 93 High Flow N/C 8.00 04/19/19 18:00 112 30 116/78 (91) 94 High Flow N/C 8.00 04/19/19 17:00 107 27 132/78 (96) 94 High Flow N/C 8.00 04/19/19 16:00 96 High Flow N/C 8.00 04/19/19 16:00 96 39 128/58 (81) 94 High Flow N/C 8.00 04/19/19 15:14 36.1 04/19/19 15:12 96 High Flow N/C 8.00 04/19/19 15:00 93 23 120/74 (89) High Flow N/C 8.00 04/19/19 13:00 93 28 122/77 (92) 95 High Flow N/C 8.00 04/19/19 12:45 97 04/19/19 12:16 36.3 04/19/19 12:00 93 High Flow N/C 8.00 04/19/19 12:00 93 28 122/74 (90) 96 High Flow N/C 8.00 04/19/19 11:00 97 28 122/75 (91) 94 High Flow N/C 8.00 04/19/19 10:00 94 30 123/81 (95) 94 High Flow N/C 8.00 04/19/19 09:54 94 Nasal Cannula 8.00 04/19/19 09:00 105 162/98 (119) 99 High Flow N/C 8.00 04/19/19 08:00 115 26 153/94 (113) 96 High Flow N/C 8.00 04/19/19 08:00 93 High Flow N/C 8.00 04/19/19 08:00 36.2 04/19/19 07:00 108 04/19/19 07:00 111 28 173/98 (123) 95 High Flow N/C 8.00 04/19/19 06:00 109 26 164/101 (122) 95 High Flow N/C 8.00 04/19/19 05:00 107 26 98 High Flow N/C 8.00 I & O 04/20/19 07:00 Intake Total 3020 ml Output Total 2000 ml Balance 1020 ml Height & Weight Height: 5'8" Weight: 248lbs. oz. 112.495540ac; 38.53 BMI Method:Stated General Appearance: Mild Distress, Obese HEENT: PERRL/EOMI, Pharynx Normal Neck: Normal Inspection, Supple Respiratory: No Respiratory Distress Cardiovascular: No Murmur, Normal Peripheral Pulses Capillary Refill: Less Than 3 Seconds Peripheral Pulses: 2+ Dorsalis Pedis (R), 2+ Left Dors-Pedis (L), 2+ Radial Pulses (R), 2+ Radial Pulses (L) Gastrointestinal: normal bowel sounds, non tender, soft Extremity: Normal Inspection, Non Tender, No Pedal Edema Neurologic/Psychiatric: Alert, Oriented x3, Normal Mood/Affect Skin: Normal Color, Warm/Dry Results Lab Laboratory Tests 04/19/19 02:24 04/20/19 02:50 Assessment/Plan Assessment/Plan Left PNA with sepsis with pleuritis -Change Rocephin to Merrem for more anarobic coverage secondary to worsening leukocytosis Continue Vanco -Repeat castillo cultures. Send pleural fluid down for repeat cultures -Repeat Chest CT -May need to proceed to surgery. Will reevaluate after CT of chest -repeat Procalcitonin -Cast[place] cultures pending -IVF -MRSA swab -- is negative New spontaneous PTX -s/p chest tube x 2 CP secondary to pleuritis -Controlled with Toradol and morphine Asthma -Continue DuoNebs -Add claritin and singulair Hives - resolved Sinus tach with HTN -Lopressor, labetalol, hydralazine (PRN if not tachycardic) -Monitor Hx RA - She is not taking anything for RA currently TL KRAMER DO Apr 20, 2019 04:33
[2019-04-20 05:35] LABS: BILIRUBIN,URINE NEGATIVE (NEGATIVE); CLARITY,URINE CLOUDY; COLOR,URINE YELLOW; GLUCOSE, URINE (UA) NEGATIVE (NEGATIVE); KETONES,URINE NEGATIVE (NEGATIVE); LEUKOCYTE ESTERASE ,URINE NEGATIVE (NEGATIVE); NITRITE,URINE NEGATIVE (NEGATIVE); PROTEIN,URINE NEGATIVE (NEGATIVE)
[2019-04-20 05:39] LABS: GLUCOSE,BODY FLUID 39 MG/DL; LDH,BODY FLUID 1375 U/L; TOTAL PROTEIN,BODY FLUID 3.6 G/DL
[2019-04-20] MEDS: MEROPENEM 1,000 MG in WATER (STERILE) FOR INJECTION 20 ML IV SCH ×2 (05:45→13:38)
[2019-04-20] MEDS: inSUlin ASPART (NovoLOG) 1 UNIT/0.01 ML (CHARGE PER UNIT) SC SCH ×2 (06:19)
[2019-04-20] MEDS: ENOXAPARIN 40 MG/0.4 ML (LOVENOX) SYR SC SCH (06:19)
[2019-04-20 06:41] LABS: BACTERIA,URINE MODERATE /HPF
[2019-04-20 06:42] LABS: AMORPHOUS SEDIMENT,UR FEW AMOR URATES /LPF
[2019-04-20 06:45] LABS: BODY FLUID APPEARENCE SLT CLDY; BODY FLUID COLOR YELLOW; BODY FLUID SOURCE PLEURAL
[2019-04-20 07:11] LABS: BF OTHER CELLS 1 %; BODY FLUID RBC COUNT 428 /uL; BODY FLUID WBC TOTAL COUNT 725 /uL; LYMPHOCYTES,BODY FLUID 17 %
--- NOTE | 2019-04-20 07:34 | Diagnostic Imaging Report ---
INDICATION: Left-sided chest tube, pneumothorax. TECHNIQUE: Single view chest 3:38 AM. CORRELATION STUDY: 04/19/2019 FINDINGS: Small-caliber left-sided chest tube is present. However, the tip extends lateral to the ribs suggesting potential malposition. There has been development of rather significant collapse of the left lung. Cavitary type change is suggested with air-fluid levels present. There is no shift of mediastinal structures. Right lung appears generally stable. IMPRESSION: 1. Development of what appears to be significant collapse of the left lung compared to prior study. Significant consolidation and effusion left lower hemithorax. The chest tube tip extends lateral to the ribs suggesting potential malposition. Telephone call has been made to the patient's unit nurse at time of dictation, 7:03 AM. Dictated by: Dictated on workstation # [id number]
[2019-04-20] MEDS: FAMOTIDINE 20MG/2ML IV (PEPCID) IVP SCH (08:22)
--- NOTE | 2019-04-20 08:28 | Progress Note - Hospitalist ---
Subjective HPI/CC On Admission Date Seen by Provider: Apr 20, 2019 Time Seen by Provider: 08:27 Chika Guadarrama is a 53-year-old female with past medical history of asthma, anxiety, obesity, who presented as a transfer from [place] with severe sepsis due to pneumonia. She reports that she had been feeling very short of breath. She also reports fevers and chills. She reports rigors. She reports nausea. She has had a cough. She developed a rash with hives prior to presenting. She reports pleuritic chest pain. She has pain on the left side with every breath she takes. Subjective/Events-last exam Pt reports persistent shortness of breath. Discussed plan for repeat CT given worsening CXR and possible surgery. Objective Exam Vital Signs Vital Signs Date Time Temp Pulse Resp B/P (MAP) Pulse Ox O2 Delivery O2 Flow Rate FiO2 04/20/19 07:26 92 High Flow N/C 8.00 04/20/19 07:00 113 26 113/65 (81) 04/20/19 04:00 36.8 04/17/19 15:23 40 Capillary Refill : Less Than 3 Seconds General Appearance: No Apparent Distress, WD/WN Respiratory: No Respiratory Distress, Other (absent breath sounds on left) Cardiovascular: No Murmur, Tachycardia Neurologic/Psychiatric: Alert, Oriented x3 Results/Procedures Lab Laboratory Tests 04/20/19 02:50 Patient resulted labs reviewed. Imaging: Reviewed Imaging Report Assessment/Plan Assessment and Plan Assess & Plan/Chief Complaint Severe sepsis Community acquired pneumonia Acute respiratory failure with hypoxia Spontaneous Pneumothorax Asthma WBC up today - Chest tube placed by Dr Yang 04/15, second chest tube placed 04/[address] Yang - Reviewed CXR images, collapse of left lung noted- CT chest ordered - I discussed with Dr Yang and Dr Oneal regarding possible need for surgical intervention Continue on Merrem and Vanc Continue steroids Pulmonology consulted, appreciate assistance Hypertension - Metoprolol - prn hydralazine Hyperglycemia - SSI - likely due to steroids - improving Morbid obesity Clinically significant, no acute management needs DVT prophylaxis: Lovenox Acute kidney injury, resolved Hives, resolved Lactic acidosis, resolved Diagnosis/Problems Diagnosis/Problems (1) Essential (primary) hypertension Status: Chronic (2) Spontaneous pneumothorax Status: Acute (3) Acute respiratory failure with hypoxia Status: Acute (4) Acute kidney injury Status: Resolved Resolution Date/Time: 04/15/19 @ 14:11 (5) Hives Status: Resolved Resolution Date/Time: 04/15/19 @ 14:11 (6) Morbid obesity (7) Severe sepsis Status: Acute (8) Community acquired pneumonia Status: Acute Qualifiers: Laterality: left Lung location: lower lobe of lung Qualified Codes: J18.1 - Lobar pneumonia, unspecified organism (9) Lactic acidosis Status: Resolved Resolution Date/Time: 04/14/19 @ 13:26 (10) Asthma Status: Chronic Qualifiers: Asthma severity: moderate Asthma persistence: persistent Asthma complication type: uncomplicated Qualified Codes: J45.40 - Moderate persistent asthma, uncomplicated (11) Hyperglycemia Status: Acute Clinical Quality Measures DVT/VTE Risk/Contraindication: Risk Factor Score Per Nursin RFS Level Per Nursing on Admit: 4+=Very High JONATHAN DANGELO MD Apr 20, 2019 08:28
--- NOTE | 2019-04-20 08:31 | Physical Therapy Daily Note ---
PT Daily Note-Current Subjective Patient in bed pre tx, agrees to PT, has unrated pain in left side, has a resting HR of 115bpm. Patient states she may have to have another surgery today. Appearance Patient in bedside chair post tx with nurse call, phone, tray, all needs met. Nurse notified about a missing electrode on her telemetry. Mental Status Patient Orientation: Normal For Age Attachments: Oxygen, Drains, Gray Catheter, IV Transfers SCALE: Activities may be completed with or without assistive devices. 5-Yygxdedzye-egwlnex completes the activity by him/herself with no assistance from a helper. 5-Set-up or Clean-up Assistance-helper sets up or cleans up; patient completes activity. [place] assists only prior to or following the activity. 4-Supervision or Touching Assistance-helper provides verbal cues and/or touching/steadying and/or contact guard assistance as patient completes activity. Assistance may be provided throughout the activity or intermittently. 3-Partial/Moderate Assistance-helper does LESS THAN HALF the effort. [place] lifts, holds or supports trunk or limbs, but provides less than half the effort. 2-Substantial/Maximal Assistance-helper does MORE THAN HALF the effort. [place] lifts or holds trunk or limbs and provides more than half the effort. 1-Gqvzzfyoy-woroui does ALL the effort. Patient does none of the effort to complete the activity. Or, the assistance of 2 or more helpers is required for the patient to complete the activity. If activity was not attempted, code reason: 7-Patient Refused. 9-Not Applicable-not attempted and the patient did not perform the activity before the current illness, exacerbation or injury. 10-Not Attempted due to Environmental Limitations-(lack of equipment, weather restraints, etc.). 88-Not Attempted due to Medical Conditions or Safety Concerns. Roll Left & Right (QC): 6 Lying to Sitting/Side of Bed(Q: 6 Sit to Stand (QC): 6 Chair/Cqn-lx-Pywxx Xfer(QC): 6 Weight Bearing Right Lower Extremity: Right Weight Bearing/Tolerated Left Lower Extremity: Left Weight Bearing/Tolerated Gait Training Distance: 10' Walk 10 feet (QC): 6 Gait Assistive Device: FWW minimal room to ambulate but she does so without LOB or unsteadiness. Treatments bed mobility and transfers, ambulation Assessment Current Status: Fair Progress Improving general mobility but patient has increased SOB with activity. PT Pier Runner Goals Assisted Goals PT Assisted Goals Time Frame: Apr 24, 2019 Roll Left & Right (QC): 6 Sit to Lying (QC): 6 Lying-Sitting on Side/Bed(QC): 6 Sit to Stand (QC): 6 Chair/Jie-ql-Ewgbp Xfer(QC): 6 Toilet Transfer (QC): 6 Walk 10 feet (QC): 4 Walk 50ft with 2 Turns (QC): 4 PT Plan Problem List Problem List: Activity Tolerance, Functional Strength, Safety, Balance, Gait, Transfer, Bed Mobility Treatment/Plan Treatment Plan: Continue Plan of Care Treatment Plan: Bed Mobility, Education, Functional Activity Kai, Functional Strength, Gait, Safety, Therapeutic Exercise, Transfers Treatment Duration: Apr 24, 2019 Frequency: 6 times per week Estimated Hrs Per Day: .25 hour per day Patient and/or Family Agrees t: Yes Safety Risks/Education Patient Education: Gait Training, Transfer Techniques, Correct Positioning, Safety Issues Teaching Recipient: Patient Teaching Methods: Demonstration, Discussion Response to Teaching: Reinforcement Needed Time/GCodes Time In: 0810 Time Out: 0820 Total Billed Treatment Time: 10 Total Billed Treatment 1 visit FA 10DIANA FISCHER PT Apr 20, 2019 08:30
[2019-04-20] MEDS: FLUTICASONE NASAL SPRAY (FLONASE) 16 GM BTL NS SCH (09:30)
[2019-04-20] MEDS: SENNA W/DOCUSATE (SENOKOT S) TABLET PO SCH (09:31)
[2019-04-20] MEDS: MONTELUKAST 10 MG (SINGULAIR) TAB PO SCH (09:31)
[2019-04-20] MEDS: LORATADINE (CLARITIN) 10 MG TAB PO SCH (09:31)
[2019-04-20] MEDS: DOCUSATE SODIUM 100 MG (COLACE) CAP PO SCH (09:31)
[2019-04-20] MEDS: meTOprolol TARTRATE 25 MG (LOPRESSOR) TABLET PO SCH (09:57)
--- NOTE | 2019-04-20 10:11 | Progress Note - Surgery ---
[facility] 04/20/19 1011: Subjective Date Seen by a Provider: Apr 20, 2019 Time Seen by a Provider: 10:06 Subjective/Events-last exam Patient is alert and oriented. Family at bedside labored breathing Currently has two left sided chest tubes Tachycardia with elevated WBC Review of Systems General: No Chills, No Night Sweats; Fatigue HEENT: No Head Aches, No Eye Pain Pulmonary: Dyspnea, Cough, Pleuritic Chest Pain Cardiovascular: Chest Pain; No: Palpitations Gastrointestinal: No: Nausea, Vomiting, Abdominal Pain Objective Exam Vital Signs Date Time Temp Pulse Resp B/P (MAP) Pulse Ox O2 Delivery O2 Flow Rate FiO2 04/20/19 08:00 94 High Flow N/C 8.00 04/20/19 08:00 36.9 04/20/19 07:26 92 High Flow N/C 8.00 04/20/19 07:00 113 26 113/65 (81) 93 High Flow N/C 8.00 04/20/19 06:00 102 28 129/74 (92) 93 High Flow N/C 8.00 04/20/19 05:00 108 25 93 High Flow N/C 8.00 04/20/19 04:00 36.8 04/20/19 04:00 96 High Flow N/C 8.00 04/20/19 04:00 112 39 116/67 (83) 92 High Flow N/C 8.00 04/20/19 03:00 114 37 114/69 (84) 93 High Flow N/C 8.00 04/20/19 02:28 91 High Flow N/C 8.00 04/20/19 02:00 113 40 122/77 (92) High Flow N/C 8.00 04/20/19 01:00 112 04/20/19 01:00 112 40 123/73 (90) 93 High Flow N/C 8.00 04/20/19 00:13 37.2 04/20/19 00:00 96 High Flow N/C 8.00 04/19/19 23:00 117 42 127/83 (98) 92 High Flow N/C 8.00 04/19/19 22:26 93 High Flow N/C 8.00 04/19/19 22:00 112 31 123/78 (93) 93 High Flow N/C 8.00 04/19/19 21:00 111 31 138/74 (95) 94 High Flow N/C 8.00 04/19/19 20:00 96 High Flow N/C 8.00 04/19/19 20:00 117 27 130/68 (88) 94 High Flow N/C 8.00 04/19/19 19:06 37.7 04/19/19 19:00 113 36 124/75 (91) 92 High Flow N/C 8.00 04/19/19 19:00 114 04/19/19 18:44 93 High Flow N/C 8.00 04/19/19 18:00 112 30 116/78 (91) 94 High Flow N/C 8.00 04/19/19 17:00 107 27 132/78 (96) 94 High Flow N/C 8.00 04/19/19 16:00 96 High Flow N/C 8.00 04/19/19 16:00 96 39 128/58 (81) 94 High Flow N/C 8.00 04/19/19 15:14 36.1 04/19/19 15:12 96 High Flow N/C 8.00 04/19/19 15:00 93 23 120/74 (89) High Flow N/C 8.00 04/19/19 13:00 93 28 122/77 (92) 95 High Flow N/C 8.00 04/19/19 12:45 97 04/19/19 12:16 36.3 04/19/19 12:00 93 High Flow N/C 8.00 04/19/19 12:00 93 28 122/74 (90) 96 High Flow N/C 8.00 04/19/19 11:00 97 28 122/75 (91) 94 High Flow N/C 8.00 I & O 04/20/19 06:59 Intake Total 3520 ml Output Total 2315 ml Balance 1205 ml Capillary Refill : Less Than 3 Seconds General Appearance: No Apparent Distress, WD/WN HEENT: PERRL/EOMI, Pharynx Normal Neck: Normal Inspection, Supple Respiratory: No Respiratory Distress, Other (absent breath sounds on left) Cardiovascular: No Murmur, Tachycardia Peripheral Pulses: 2+ Dorsalis Pedis (R), 2+ Left Dors-Pedis (L), 2+ Radial Pulses (R), 2+ Radial Pulses (L) Gastrointestinal: normal bowel sounds, non tender, soft Extremity: Normal Inspection, Non Tender, No Calf Tenderness, No Pedal Edema Neurologic/Psychiatric: Alert, Oriented x3 Skin: Normal Color, Warm/Dry Results Lab Laboratory Tests 04/19/19 11:03: Glucometer 120H 04/19/19 15:00: Vancomycin Level Trough 10.0 04/19/19 16:26: Glucometer 135H 04/20/19 02:50: White Blood Count 23.0H, Red Blood Count 4.01L, Hemoglobin 12.1, Hematocrit 36, Mean Corpuscular Volume 89, Mean Corpuscular Hemoglobin 30, Mean Corpuscular Hemoglobin Concent 34, Red Cell Distribution Width 13.4, Platelet Count 277, Mean Platelet Volume 11.4H, Neutrophils (%) (Auto) 76H, Lymphocytes (%) (Auto) 12, Monocytes (%) (Auto) 8, Eosinophils (%) (Auto) 5, Basophils (%) (Auto) 0, Neutrophils # (Auto) 17.4H, Lymphocytes # (Auto) 2.8, Monocytes # (Auto) 1.8H, Eosinophils # (Auto) 1.0H, Basophils # (Auto) 0.0, Sodium Level 135, Potassium Level 3.8, Chloride Level 100, Carbon Dioxide Level 24, Anion Gap 11, Blood Urea Nitrogen 8, Creatinine 0.66, Estimat Glomerular Filtration Rate > 60, BUN/Creatinine Ratio 12, Glucose Level 145H, Calcium Level 7.8L, Phosphorus Level 3.1, Magnesium Level 2.1, Procalcitonin 0.79H 04/20/19 04:35: Body Fluid Source PLEURAL, Body Fluid Color YELLOW, Body Fluid Appearance SLT CLDY, Body Fluid pH , Body Fluid WBC 725, Body Fluid RBC 428, Body Fluid Polynuclear WBCs 81, Body Fluid Mononuclear WBCs 1, Body Fluid Lymphocytes 17, Body Fluid Other Cells 1, Body Fluid Glucose 39, Body Fluid Total Protein 3.6, Body Fluid Lactate Dehydrogenase 1375 04/20/19 05:30: Urine Color YELLOW, Urine Clarity CLOUDY, Urine pH 6.0, Urine Specific [place] >=1.030, Urine Protein NEGATIVE, Urine Glucose (UA) NEGATIVE, Urine Ketones NEGATIVE, Urine Nitrite NEGATIVE, Urine Bilirubin NEGATIVE, Urine Urobilinogen 0.2, Urine Leukocyte Esterase NEGATIVE, Urine RBC (Auto) 2+H, Urine RBC 2-5H, Urine WBC NONE, Urine Squamous Epithelial Cells 2-5, Urine Crystals PRESENTH, Urine Amorphous Sediment FEW JASON URATESH, Urine Bacteria MODERATEH, Urine Casts NONE, Urine Mucus SMALLH, Urine Culture Indicated YES Microbiology 04/18/19 Influenza Types A,B Antigen (REFUGIO) - Final, Complete 04/17/19 Gram Stain - Final, Complete 04/17/19 Body Fluid Culture - Final, Complete Staphylococcus aureus 04/14/19 Blood Culture - Final, Complete No growth 04/14/19 Urine Culture - Final, Complete NO GROWTH Assessment/Plan Assessment/Plan Assessment/Plan Pleural Abscess with Multiple Loculations Pneumonia Spontaneous PTX - twice Ms. Guadarrama continues to have significant left lung collapse despite having two chest tubes. Additionally, the patient continues to have an elevated WBC despite antibiotic therapy. We feel the patient will need surgery and she would be better served at a facility with thoracic surgery. The patient was informed of this and all of her questions and concerns were answered at that time. If any additional questions or concerns arise please contact. Clinical Quality Measures DVT/VTE Risk/Contraindication: Risk Factor Score Per Nursin RFS Level Per Nursing on Admit: 4+=Very High KATLIN KRAUSE DO 04/20/198: Subjective Subjective/Events-last exam Patient states her breathing is still about the maybe worse. Had Thoravent placed by Dr. Yang yesterday . Has increasing left pneumothorax on left side and airleak in atrium. Is thirsty and is npo. Going for a CT of chest shortly. Denies fever, Objective Exam General Appearance: No Apparent Distress, WD/WN HEENT: PERRL/EOMI Neck: Normal Inspection Respiratory: No Respiratory Distress, Other (diminished sounds on left) Cardiovascular: Tachycardia Gastrointestinal: non tender, soft, no organomegaly; No guarding, No rebound, No tenderness Extremity: Normal Inspection, Non Tender, No Calf Tenderness Neurologic/Psychiatric: Alert, Oriented x3 Skin: Normal Color, Warm/Dry Lymphatic: No Adenopathy Assessment/Plan Assessment/Plan Assessment/Plan Pleural Abscess with Multiple Loculations Pneumonia Spontaneous PTX has a chest tube and Thoravent that has been placed. Persistent pneumo, going for ct scan shortly. Could possibly require wedge resection or more significant intervention, await CT results. Depending on CT results may require transfer to facility with thoracic surgery. All questions answered. Supervisory-Addendum Brief Verification & Attestation Participated in pt care: history, MDM, physical Personally performed: exam, history, MDM, supervision of care Care discussed with: Medical Student Procedures: n/a Results interpretation: Verified all documentation Verification and Attestation of Medical Student E/M Service A medical student performed and documented this service in my presence. I reviewed and verified all information documented by the medical student and made modifications to such information, when appropriate. I personally performed the physical exam and medical decision making. Katlin Krause, Apr 20, 2019,17:[address] [facility] Apr 20, 2019 10:11 KATLIN KRAUSE DO Apr 20, 2019 17:18
--- NOTE | 2019-04-20 10:46 | Diagnostic Imaging Report ---
PROCEDURE: CT chest without contrast. TECHNIQUE: Multiple contiguous axial images were obtained through the chest without the use of intravenous contrast. Auto Exposure Controls were utilized during the CT exam to meet ALARA standards for radiation dose reduction. INDICATION: Severe sepsis and empyema. COMPARISON: Correlation is made with a recent CT chest from 04/18/2019. FINDINGS: The large-bore left-sided chest tube previously noted in the lower portion of the left pleura is no longer visualized and may have inadvertently pulled out. In addition, the small-caliber left anterior upper chest Thora-Vent chest tube has retracted and now has a tubing extrathoracic. Patient has now developed a large left-sided hydropneumothorax. There is increasing consolidation in the mid and left lower lung field with only a minimal amount of aerated lung noted today. A small air densities within the pulmonary parenchyma are again noted which may represent microabscesses. The right lung appears to be mostly aerated. There may be minimal dependent atelectasis in the posterior right lower lobe. No right-sided pleural fluid is seen. There is a small amount of pericardial fluid. Upper abdomen again demonstrates hepatic steatosis. IMPRESSION: Previously noted left-sided chest tubes have been pulled out, perhaps inadvertently. There patient now has a large left-sided hydropneumothorax with increasing left basilar consolidation. Results were called and discussed with Dr. Yang prior to this dictation. Dictated by: Dictated on workstation # [id number]
[2019-04-20] MEDS ORDERED: MIDAZOLAM 2 MG/2 ML (VERSED) VIAL IVP ONE (13:00)
[2019-04-20] MEDS ORDERED: LIDOCAINE 1% INJ 20 ML 20 ML VIAL INJ ONE (13:00)
[2019-04-20] MEDS ORDERED: fentaNYL INJECTION 100 MCG/2 ML AMP IVP ONE (13:00)
--- NOTE | 2019-04-20 14:30 | NUR ---
pT RETURNED FROM ct WITH PIGTAIL CHEST TUBE IN PLACE. CT HAS REMOVED OTHER 2 CHEST TUBES. NEW CHEST TUBE CONNECTED TO PLEURAVAC AT [facility] WITH [id number]
--- NOTE | 2019-04-20 14:35 | Diagnostic Imaging Report ---
INDICATION: Left-sided pneumothorax. Patient present for CT-guided pigtail pleural catheter placement. FINDINGS: Patient was brought to the CT suite, placed on table in the supine position. Axial imaging through the chest was performed to evaluate appropriate entry site. Left chest was prepped and draped in the usual sterile fashion. A small amount of 1% lidocaine was utilized for local anesthesia. A A[employer] catheter was utilized to puncture the left anterior chest and placed just above the third rib. This was exchanged over an .035 guidewire. The tract was dilated with 6, 8, and 10-[place] dilators. A 10.5-[place] All-Purpose pigtail drain was then advanced over the .035 guidewire and placed into the anterior pleural space. The loop was formed. 2A valve was placed in a closed position on the catheter. The catheter was affixed to the patient's skin. Patient tolerated the procedure well. Catheter will be placed to Pleur-evac drain with wall suction. IMPRESSION: CT-guided pigtail pleural drain placement on the left, as described. Dictated by: Dictated on workstation # [id number]
--- NOTE | 2019-04-20 15:38 | NUR ---
Bed confirmation received from to MICU. Report called to AYDIN Basurto at
== END 2019-04-20 17:15 | disposition short-term general hospital (02) | DRG 871 ==
LOC: ICU 22:52
PROVIDERS: ADMIT Internal Medicine; ATTEND Internal Medicine
PROC: 0W9B30Z Drainage of Left Pleural Cavity with Drainage Device, Percutaneous Approach (ICD-10-PCS; principal; 2019-04-16)
PROC: 0W9B30Z Drainage of Left Pleural Cavity with Drainage Device, Percutaneous Approach (ICD-10-PCS; 2019-04-19)
DX: A41.9 Sepsis, unspecified organism (principal); R65.20 Severe sepsis without septic shock; J18.9 Pneumonia, unspecified organism; N17.9 Acute kidney failure, unspecified; J96.01 Acute respiratory failure with hypoxia; E87.2 Acidosis; Z68.41 Body mass index [BMI] 40.0-44.9, adult; J91.8 Pleural effusion in other conditions classified elsewhere; J45.909 Unspecified asthma, uncomplicated; J86.9 Pyothorax without fistula; R09.1 Pleurisy; E66.01 Morbid (severe) obesity due to excess calories; F41.9 Anxiety disorder, unspecified; I10 Essential (primary) hypertension; L50.9 Urticaria, unspecified; M06.9 Rheumatoid arthritis, unspecified; Z90.710 Acquired absence of both cervix and uterus; R73.9 Hyperglycemia, unspecified; T38.0X5A Adverse effect of glucocorticoids and synthetic analogues, initial encounter
CPT/HCPCS: 36415; 36600; 71045; 71250; 71260; 71275; 77012; 80048; 80053; 80202; 80306; 81000; 82805; 82945; 82962; 83605; 83615; 83735; 83880; 83986; 84100; 84145; 84157; 84484; 85007; 85025; 85027; 87040; 87070; 87077; 87081; 87088; 87186; 87205; 87449; 87804; 87899; 89051; 94640; 94660

== ENCOUNTER → 2019-05-10 | Outpatient (CLI) | payer SELFPAY ==
[~2019-05-10] MED LIST changes: +ALBU2.5V4 NEB; +FLUT9.9S NS; +LORA10TA76 PO; +MELO15TA39 PO; +MONT10TA26 PO; +OXYM15MI4 NSEACH
--- NOTE | 2019-05-10 14:25 | Diagnostic Imaging Report ---
INDICATION: Empyema. COMPARISON: April 20, 2019. TECHNIQUE: Two radiographs of the chest dated May 10, 2019. FINDINGS: Previously noted left-sided chest tube is no longer visualized. Surgical clips are noted overlying the left lower chest laterally. The cardiac silhouette is stable. No significant pulmonary vascular congestion. The right lung is clear. Left basilar pleural-parenchymal opacity is present with additional densities extending up the lateral left chest wall. These densities extending of the lateral left chest wall appear more prominent than the prior examination. No pneumothorax. Scattered osseous degenerative changes without acute osseous abnormality. IMPRESSION: Persistent small left pleural-parenchymal opacity, felt related to a combination of pleural fluid with adjacent atelectasis and/or infiltrate. This presumed pleural fluid is seen extending up the lateral left chest wall and a component of loculation may be present. This could be further evaluated with CT of the chest, preferably with contrast. Interval removal of previously noted left-sided chest tube. No significant pneumothorax remains. Additional stable findings as above. Dictated by: Dictated on workstation # [id number]
== END ==
LOC: RAD 13:23
PROVIDERS: ATTEND Student in an Organized Health Care Education/Training Program
DX: J86.9 Pyothorax without fistula (principal)
CPT/HCPCS: 71046

== ENCOUNTER 2019-11-26 18:53 | Emergency (ER) | payer SELFPAY ==
[~2019-11-26] VITALS: Ht 172 cm; Wt 133.3 kg
[2019-11-26] MEDS ORDERED: methylPREDNISolone 125 MG (Solu-MEDROL) VIAL ONE (19:24)
[2019-11-26] MEDS ORDERED: ALBUTEROL/IPRATROP (COMBIVENT RESPIMAT) 4 GM INHALER ONE (19:24)
[2019-11-26] MEDS ORDERED: methylPREDNISolone 125 MG (Solu-MEDROL) VIAL IVP ONE (19:30)
[2019-11-26] MEDS ORDERED: ALBUTEROL/IPRATROP (COMBIVENT RESPIMAT) 4 GM INHALER IH PRN (19:30)
[2019-11-26 19:39] LABS: BASOPHILS # (AUTO) 0.1 10^3/uL (0.0-0.1); BASOPHILS % (AUTO) 1 % (0-10); EOSINOPHILS # (AUTO) 1.2 10^3/uL (0.0-0.3); EOSINOPHILS % (AUTO) 12 % (0-10); HEMATOCRIT 43 % (35-52); HEMOGLOBIN 14.1 g/dL (11.5-16.0); LYMPHOCYTES # (AUTO) 3.4 10^3/uL (1.0-4.0); LYMPHOCYTES % (AUTO) 34 % (12-44); MEAN CORPUSCULAR HEMOGLOBIN 29 pg (25-34); MEAN CORPUSCULAR HGB CONC 33 g/dL (32-36); MEAN CORPUSCULAR VOLUME 87 fL (80-99); MEAN PLATELET VOLUME 11.7 fL (9.0-12.2); MONOCYTES # (AUTO) 0.6 10^3/uL (0.0-1.0); MONOCYTES % (AUTO) 6 % (0-12); NEUTROPHILS # (AUTO) 4.6 10^3/uL (1.8-7.8); NEUTROPHILS % (AUTO) 46 % (42-75); PLATELET COUNT 223 10^3/uL (130-400); WHITE BLOOD COUNT 9.9 10^3/uL (4.3-11.0)
--- NOTE | 2019-11-26 19:41 | ED General ---
General Chief Complaint: Respiratory Problems Stated Complaint: ASTHMA EXACERBATION Nursing Triage Note: PT ARRIVES TO ER WITH C/O ASHMA EXACERBATION AND SOB SINCE 2 WEEKS AGO. PT HAS BEEN OUT OF BUDESONIDE AND HAS BEEN TRYING TO MANAGE WITH HOME BREATHING TX. PT HAS NO KNOWN COVID EXPOSURE. PT ALSO HAS PARTIAL LUNG REMOVAL IN MAY DUE TO SEPTIC PNEUMONIA. Nursing Sepsis Screen: No Definite Risk Source of Information: Patient Exam Limitations: No Limitations History of Present Illness Date Seen by Provider: Nov 26, 2019 Time Seen by Provider: 18:54 Initial Comments This 54-year-old woman presents to the emergency room with complaints of severe asthma exacerbation. She has had increasing trouble over the past 2 weeks. She reports oxygen saturations at home are in the 91 to 92% range. She ran out of her Combivent inhaler but has still been using albuterol inhalers and albuterol nebulizers. She had severe sepsis with pneumonia in April of this year. She subsequently was sent to and had complications requiring partial pneumonectomy. She denies any fever or new cough. Her cough is productive of foamy clear sputum. She denies any known Covid 19 exposures. She has attended [facility] recently. Allergies and Home Medications Allergies Uncoded Allergies: dRUGS THAT AFFECT SERITONIN LEVELS (Allergy, Unknown, 10/15/05) Home Medications Albuterol Sulfate 2.5 Mg/3 Ml Vial.neb, 1 VIAL NEB Q6H PRN for SHORTNESS OF BREATH, (Reported) Cephalexin 500 Mg Capsule, 500 MG PO TID Prescribed by: SHERIN FENG on 11/26/192107 Fluticasone Propionate 9.9 Ml [place].susp, 2 SPRAY NS DAILY PRN for CONGESTION, (Reported) Loratadine 10 Mg Tablet, 10 MG PO HS, (Reported) Meloxicam 15 Mg Tablet, 15 MG PO DAILY, (Reported) Montelukast Sodium 10 Mg Tablet, 10 MG PO HS, (Reported) Oxymetazoline HCl 15 Ml Mist, 2 SPRAYS NSEACH PRN PRN for CONGESTION, (Reported) Prednisone 20 Mg Tab, 40 MG PO DAILY Prescribed by: SHERIN FENG on 11/26/192107 Patient Home Medication List Home Medication List Reviewed: Yes Review of Systems Review of Systems Constitutional: no symptoms reported EENTM: no symptoms reported Respiratory: see HPI Cardiovascular: no symptoms reported Gastrointestinal: no symptoms reported Genitourinary: no symptoms reported Musculoskeletal: no symptoms reported Skin: no symptoms reported Psychiatric/Neurological: No Symptoms Reported Hematologic/Lymphatic: No Symptoms Reported Past Wzprxdg-Geqhhp-Tgrpmo Hx Past Med/Social Hx: Reviewed Nursing Past Med/Soc Hx Patient Social History Former Smoker, Quit: Apr 18, 2019 Recent Foreign Travel: No Contact w/Someone Who Travel: No Recent Infectious Disease Expo: No Recent Hopitalizations: No Immunizations Up To Date Tetanus Booster (TDap): Unknown Seasonal Allergies Seasonal Allergies: No Past Medical History Surgeries: Yes Hysterectomy, Lobectomy (Pulmonary) Respiratory: Yes Asthma Cardiac: Yes Hypertension 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 oz. 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 Norm as Tested Skin: normal color, warm/dry Focused Exam Lactate Level 11/26/19 19:22: Lactic Acid Level 1.55 Lactic Acid Level Progress/Results/Core Measures Suspected Sepsis Recent Fever Within 48 Hours: No Infection Criteria Present: Suspected New Infection New/Unexplained Altered Menta: No Sepsis Screen: No Definite Risk SIRS Temperature: Pulse: 98 Respiratory Rate: 18 Laboratory Tests 11/26/19 19:22: White Blood Count 9.9 Blood Pressure 175 /109 Mean: 131 11/26/19 19:22: Lactic Acid Level 1.55 Laboratory Tests 11/26/19 19:22: Creatinine 1.40H, INR Comment 1.0, Platelet Count 223, Total Bilirubin 0.4 Results/Orders Lab Results Laboratory Tests Test 11/26/19 19:22 11/26/19 19:54 Range/Units White Blood Count 9.9 4.3-11.0 10^3/uL Red Blood Count 4.86 3.80-5.11 10^6/uL Hemoglobin 14.1 11.5-16.0 g/dL Hematocrit 43 35-52 % Mean Corpuscular Volume 87 80-99 fL Mean Corpuscular Hemoglobin 29 25-34 pg Mean Corpuscular Hemoglobin Concent 33 32-36 g/dL Red Cell Distribution Width 12.9 10.0-14.5 % Platelet Count 223 130-400 10^3/uL Mean Platelet Volume 11.7 9.0-12.2 fL Immature Granulocyte % (Auto) 0 % Neutrophils (%) (Auto) 46 42-75 % Lymphocytes (%) (Auto) 34 12-44 % Monocytes (%) (Auto) 6 0-12 % Eosinophils (%) (Auto) 12 H 0-10 % Basophils (%) (Auto) 1 0-10 % Neutrophils # (Auto) 4.6 1.8-7.8 10^3/uL Lymphocytes # (Auto) 3.4 1.0-4.0 10^3/uL Monocytes # (Auto) 0.6 0.0-1.0 10^3/uL Eosinophils # (Auto) 1.2 H 0.0-0.3 10^3/uL Basophils # (Auto) 0.1 0.0-0.1 10^3/uL Immature Granulocyte # (Auto) 0.0 0.0-0.1 10^3/uL Neutrophils % (Manual) 49 % Lymphocytes % (Manual) 35 % Monocytes % (Manual) 3 % Eosinophils % (Manual) 12 % Band Neutrophils 1 % Smudge Cells MOD Blood Morphology Comment NORMAL Prothrombin Time 13.1 12.2-14.7 SEC INR Comment 1.0 0.8-1.4 Activated Partial Thromboplast Time 27 24-35 SEC Sodium Level 140 135-145 MMOL/L Potassium Level 3.7 3.6-5.0 MMOL/L Chloride Level 105 98-107 MMOL/L Carbon Dioxide Level 24 21-32 MMOL/L Anion Gap 11 5-14 MMOL/L Blood Urea Nitrogen 9 7-18 MG/DL Creatinine 1.40 H 0.60-1.30 MG/DL Estimat Glomerular Filtration Rate 39 BUN/Creatinine Ratio 6 Glucose Level 118 H 70-105 MG/DL Lactic Acid Level 1.55 0.50-2.00 MMOL/L Calcium Level 8.9 8.5-10.1 MG/DL Corrected Calcium 8.9 8.5-10.1 MG/DL Total Bilirubin 0.4 0.1-1.0 MG/DL Aspartate Amino Transf (AST/SGOT) 22 5-34 U/L Alanine Aminotransferase (ALT/SGPT) 26 0-55 U/L Alkaline Phosphatase 84 40-136 U/L Lactate Dehydrogenase 245 H 125-220 U/L C-Reactive Protein High Sensitivity 0.77 H 0.00-0.50 MG/DL B-Type Natriuretic Peptide < 10.0 <100.0 PG/ML Total Protein 7.2 6.4-8.2 GM/DL Albumin 4.0 3.2-4.5 GM/DL Procalcitonin 0.03 <0.10 NG/ML Coronavirus 2019 ([facility]) Negative Negative Urine Color YELLOW Urine Clarity SL CLOUDY Urine pH 5.5 5-9 Urine Specific [place] 1.020 1.016-1.022 Urine Protein NEGATIVE NEGATIVE Urine Glucose (UA) NEGATIVE NEGATIVE Urine Ketones TRACE H NEGATIVE Urine Nitrite NEGATIVE NEGATIVE Urine Bilirubin NEGATIVE NEGATIVE Urine Urobilinogen 1.0 < = 1.0 MG/DL Urine Leukocyte Esterase 2+ H NEGATIVE Urine RBC (Auto) NEGATIVE NEGATIVE Urine RBC NONE /HPF Urine WBC 25-50 H /HPF Urine Crystals PRESENT H /LPF Urine Amorphous Sediment FEW JASON URATES H /LPF Urine Bacteria TRACE /HPF Urine Casts NONE /LPF Urine Mucus SMALL H /LPF Urine Culture Indicated YES Micro Results Microbiology 11/26/19 Influenza Types A,B Antigen (REFUGIO) - Final, Complete My Orders Orders - SHERIN GUTIÉRREZ MD Covid 19 Inhouse Test (11/26/19 18:57) Cbc With Automated Diff (11/26/19 19:18) Comprehensive Metabolic Panel (11/26/19 19:18) Blood Culture (11/26/19 19:18) Sputum Culture (11/26/19 19:18) Urinalysis (11/26/19 19:18) Urine Culture (11/26/19:18) Protime With Inr (11/26/19:18) Partial Thromboplastin Time (11/26/19 19:18) Chest 1 View, Ap/Pa Only (11/26/19 19:18) Ed Iv/Invasive Line Start (11/26/19 19:18) Ed Iv/Invasive Line Start (11/26/19 19:18) Vital Signs Adult Sepsis Patie Q15M (11/26/19 19:18) O2 (11/26/19 19:18) Remove Rings In Anticipation O (11/26/19:18) Lactic Acid Analyzer (11/26/19:18) Influenza A And B Antigens (11/26/19 19:18) Procalcitonin (Pct) (11/26/19 19:18) Hs C Reactive Protein (11/26/19:18) LDH (11/26/19:18) Methylprednisolone Sod Succ (Solu-Medrol (11/26/19 19:30) Albuterol/Ipratropium Inhaler (Combivent (11/26/19 19:30) Rt Request For Service (11/26/19 19:21) Methylprednisolone Sod Succ (Solu-Medrol (11/26/19 19:24) Albuterol/Ipratropium Inhaler (Combivent (11/26/19 19:24) Rx-Oseltamivir Caps (Rx-Tamiflu Caps) (11/26/19 19:48) BNP (11/26/19 19:54) Manual Differential (11/26/19 19:22) Lactated Ringers (Lr 1000 Ml Iv Solution (11/26/19 20:06) Ceftriaxone For Iv Use (Rocephin For I (11/26/19 21:00) Medications Given in ED Current Medications Medications Dose Ordered Sig/Gadiel Route Start Time Stop Time Status Last Admin Dose Admin Albuterol/ Ipratropium 4 gm STK-MED ONCE .ROUTE 11/26/19 19:24 11/26/19 19:26 DC 11/26/19 19:32 4 GM Lactated Ringer's 1,000 ml @ 0 mls/hr Q0M ONCE IV 11/26/19:06 11/26/19 20:07 DC 11/26/19 20:16 1,000 MLS/HR Methylprednisolone Sodium Succinate 125 mg STK-MED ONCE .ROUTE 11/26/19 19:24 11/26/19 19:25 DC 11/26/19 19:32 125 MG Vital Signs/I&O 11/26/19 11/26/19 11/26/19 19:05 19:31 22:01 Temp 36.1 37.0 Pulse 98 98 87 Resp 18 18 B/P (MAP) 175/109 (131) 160/107 Pulse Ox 94 94 94 O2 Delivery Room Air Capillary Refill : Less Than 3 Seconds Blood Pressure Mean: 131 Progress Note #1: Time: 19:35 Progress Note Patient was seen and examined promptly after arrival. Septic work-up is being pursued. Influenza and rapid Covid swabs are being processed. Solu-Medrol 125 mg IV is being administered. She will receive an Combivent inhaler with spacer. Oxygen saturations are steady around 92% on room air at this time. Further treatment and evaluation is pending review of lab results, chest x-ray, and her response to inhaler. Progress Note #2: Time: 19:55 Progress Note Influenza screen was positive for influenza B. Patient is immediately being started on Tamiflu. She received to the Combivent inhaler and oxygen saturations are still 92 to 93%. Some aspects of the work-up are still pending. Departure Impression Primary Impression: Influenza B Additional Impressions: Asthma exacerbation Qualified Codes: J45.901 - Unspecified asthma with (acute) exacerbation Urinary tract infection Qualified Codes: N39.0 - Urinary tract infection, site not specified Disposition: HOME, SELF-CARE Condition: Improved Departure-Patient Inst. Referrals: AUDREY ROSSI MD (PCP/Family) Primary Care Physician Patient Instructions: Asthma, Adult (DC), Urinary Tract Infection, Adult (DC) Add. Discharge Instructions: Drink plenty of clear liquids to stay well-hydrated. Start your prednisone and antibiotics tomorrow as soon as you are able to pick them up. You should keep your appointment tomorrow with your primary care provider. However, call them ahead of time and discuss how they would like to proceed with the appointment. Because you have influenza, they may wish to change it to a phone or telemedicine visit. Return to care if you have dropping oxygen levels, increasing shortness of breath, or other worsening complications. Use your Combivent inhaler 1 puff every 6 hours for maintenance. You can increase this to up to 4 puffs every hour if needed for more severe exacerbation. You should also follow-up on your urine culture results with your primary care provider on Tuesday or . Complete all 10 doses of Tamiflu. Do not skip any doses even if you are feeling better. All discharge instructions reviewed with patient and/or family. Voiced understanding. Scripts Cephalexin (Keflex) 500 Mg Capsule 500 MG PO TID, #20 CAP Prov: SHERIN GUTIÉRREZ MD 11/26/19 Prednisone (Prednisone) 20 Mg Tab 40 MG PO DAILY, #8 TAB 0 Refills Prov: SHERIN GUTIÉRREZ MD 11/26/19 Copy Copies To 1: MERARI LAZAR JOSHUA T MD Nov 26, 2019 19:41
[2019-11-26] MEDS ORDERED: RX-OSELTAMIVIR 75 MG (TAMIFLU) BOX OF 10 PO STA (19:48)
[2019-11-26 19:57] LABS: BILIRUBIN,TOTAL 0.4 MG/DL (0.1-1.0); CALCIUM 8.9 MG/DL (8.5-10.1); CREATININE SERUM 1.4 MG/DL (0.60-1.30); POTASSIUM 3.7 MMOL/L (3.6-5.0); TOTAL PROTEIN 7.2 GM/DL (6.4-8.2)
[2019-11-26 20:06] LABS: BILIRUBIN,URINE NEGATIVE (NEGATIVE); CLARITY,URINE SL CLOUDY; COLOR,URINE YELLOW; GLUCOSE, URINE (UA) NEGATIVE (NEGATIVE); KETONES,URINE TRACE (NEGATIVE); LEUKOCYTE ESTERASE ,URINE 2+ (NEGATIVE); NITRITE,URINE NEGATIVE (NEGATIVE); PH,URINE 5.5 (5-9); PROTEIN,URINE NEGATIVE (NEGATIVE)
[2019-11-26] MEDS ORDERED: LACTATED RINGERS 1,000 ML IV ONE (20:06)
[2019-11-26 20:18] LABS: PROTHROMBIN TIME PATIENT 13.1 SEC (12.2-14.7)
--- NOTE | 2019-11-26 20:31 | Diagnostic Imaging Report ---
INDICATION: Sepsis EXAM: Portable chest at 8:14 PM FINDINGS: Heart size and pulmonary vascularity are normal. Lungs are clear. There are no effusions or pneumothoraces. IMPRESSION: No acute abnormalities in the chest. Dictated by: Dictated on workstation # [id number]
[2019-11-26 20:43] LABS: AMORPHOUS SEDIMENT,UR FEW AMOR URATES /LPF; BACTERIA,URINE TRACE /HPF; WBC,URINE 25-50 /HPF
[2019-11-26 20:56] LABS: BAND NEUTROPHILS 1 %; EOSINOPHILS % (MANUAL) 12 %; LYMPHOCYTES % (MANUAL) 35 %; MONOCYTES % (MANUAL) 3 %; NEUTROPHILS % (MANUAL) 49 %; RBC MORPH NORMAL; SMUDGE CELLS MOD
[2019-11-26] MEDS ORDERED: cefTRIAXone FOR IV USE 1,000 MG in WATER (STERILE) FOR INJECTION 10 ML IV ONE (21:00)
[2019-11-26] MEDS ORDERED: CEPH-507 PO (21:08)
[2019-11-26] MEDS ORDERED: PRD20T PO (21:08)
[2019-11-26 22:01] VITALS: BP 160/107
== END 2019-11-26 22:01 | disposition home or self-care (01) ==
LOC: EDUNIT# 18:53 → ER 18:54
DX: J10.1 Influenza due to other identified influenza virus with other respiratory manifestations (principal); J45.901 Unspecified asthma with (acute) exacerbation; N39.0 Urinary tract infection, site not specified; Z20.828 Contact with and (suspected) exposure to other viral communicable diseases; Z82.49 Family history of ischemic heart disease and other diseases of the circulatory system; Z80.9 Family history of malignant neoplasm, unspecified; Z83.3 Family history of diabetes mellitus; Z87.891 Personal history of nicotine dependence; Z79.52 Long term (current) use of systemic steroids; Z88.8 Allergy status to other drugs, medicaments and biological substances
CPT/HCPCS: 71045; 80053; 81000; 83605; 83615; 83880; 84145; 85007; 85027; 85610; 85730; 86141; 87040; 87070; 87088; 87205; 87804; 99284; U0002; 36415; 87635

== ENCOUNTER 2021-06-04 20:40 | Emergency (ER) | payer MEDICARE, MEDICAID ==
[~2021-06-04] VITALS: Ht 175 cm; Wt 114.0 kg
[~2021-06-04 20:40] MED LIST changes: +CEPH-507 PO; +MONT-40 PO; -MONT10TA26 PO
[2021-06-04 21:14] LABS: POTASSIUM 3.6 MMOL/L (3.6-5.0)
[2021-06-04] MEDS ORDERED: RT-ALBUTEROL/IPRATROPIUM 3 ML (DUONEB) VIAL INH ONE (21:15)
[2021-06-04 21:16] LABS: TOTAL PROTEIN 6.8 GM/DL (6.4-8.2)
[2021-06-04 21:18] LABS: BILIRUBIN,TOTAL 0.3 MG/DL (0.1-1.0)
[2021-06-04 21:20] LABS: CREATININE SERUM 0.98 MG/DL (0.60-1.30)
[2021-06-04 21:24] LABS: BASOPHILS # (AUTO) 0.1 10^3/uL (0.0-0.1); BASOPHILS % (AUTO) 1 % (0-10); EOSINOPHILS # (AUTO) 0.4 10^3/uL (0.0-0.3); EOSINOPHILS % (AUTO) 4 % (0-10); HEMATOCRIT 40 % (35-52); HEMOGLOBIN 13.6 g/dL (11.5-16.0); LYMPHOCYTES # (AUTO) 3.3 10^3/uL (1.0-4.0); LYMPHOCYTES % (AUTO) 35 % (12-44); MEAN CORPUSCULAR HEMOGLOBIN 31 pg (25-34); MEAN CORPUSCULAR HGB CONC 34 g/dL (32-36); MEAN CORPUSCULAR VOLUME 89 fL (80-99); MEAN PLATELET VOLUME 11.3 fL (9.0-12.2); MONOCYTES # (AUTO) 0.7 10^3/uL (0.0-1.0); MONOCYTES % (AUTO) 7 % (0-12); NEUTROPHILS # (AUTO) 4.8 10^3/uL (1.8-7.8); NEUTROPHILS % (AUTO) 52 % (42-75); PLATELET COUNT 262 10^3/uL (130-400); WHITE BLOOD COUNT 9.2 10^3/uL (4.3-11.0)
--- NOTE | 2021-06-04 21:24 | ED Respiratory ---
General Chief Complaint: Respiratory Problems Stated Complaint: ASTHMA ATTACK Nursing Triage Note: c/o soa x2 days, worse today after falling on stairs. Source: patient, other Exam Limitations: no limitations History of Present Illness Date Seen by Provider: Jun 04, 2021 Time Seen by Provider: 20:55 Initial Comments Patient ER by private conveyance with a significantly chief complaint of 1 day of progressively worsening asthma symptoms of wheezing shortness of air. She has chronic asthma, sinusitis and a dry cough. No fevers or chills or nausea. She took albuterol and budesonide by nebulizer today with modest short 1 to 2- hour relief of symptoms. No recent history of steroids or antibiotics. Usually she uses pseudoephedrine for her postnasal drip but she has out of this. She is not using Zyrtec or Claritin at this time. Allergies and Home Medications Allergies Uncoded Allergies: dRUGS THAT AFFECT SERITONIN LEVELS (Allergy, Unknown, 10/15/05) Patient Home Medication List Home Medication List Reviewed: Yes Albuterol Sulfate (Albuterol Sulfate) 2.5 Mg/3 Ml Vial.neb, 1 VIAL NEB Q6H PRN for SHORTNESS OF BREATH, (Reported) Entered as Reported by: DORIAN MARTÍNEZ on 04/16/19 1343 Azithromycin (Azithromycin) 250 Mg Tablet, 250 MG PO UD Prescribed by: KAYY REES on 06/04/212254 Cephalexin (Keflex) 500 Mg Capsule, 500 MG PO TID Prescribed by: SHERIN FENG on 11/26/19 210 Fluticasone Propionate (Flonase Allergy Relief) 9.9 Ml [place].susp, 2 SPRAY NS DAILY PRN for CONGESTION, (Reported) Entered as Reported by: DORIAN MARTÍNEZ on 04/16/19 1351 Loratadine (Claritin) 10 Mg Tablet, 10 MG PO HS, (Reported) Entered as Reported by: DORIAN MARTÍNEZ on 04/16/19 1351 Meloxicam (Meloxicam) 15 Mg Tablet, 15 MG PO DAILY, (Reported) Entered as Reported by: DORIAN MARTÍNEZ on 04/16/19 1343 Methylprednisolone (Medrol Dose pack) 4 Mg Tab, 4 MG PO UD Prescribed by: KAYY REES on 06/04/212254 Montelukast Sodium (Montelukast Sodium) 10 Mg Tablet, 10 MG PO HS, (Reported) Entered as Reported by: DORIAN MARTÍNEZ on 04/16/19 1351 Oxymetazoline HCl (Afrin) 15 Ml Mist, 2 SPRAYS NSEACH PRN PRN for CONGESTION, (Reported) Entered as Reported by: DORIAN MARTÍNEZ on 04/16/19 1351 Prednisone (Prednisone) 20 Mg Tab, 40 MG PO DAILY Prescribed by: SHERIN FENG on 11/26/192107 Review of Systems Review of Systems Constitutional: No chills, No diaphoresis, No fever, No malaise EENTM: No ear discharge, No ear pain Respiratory: cough; No phlegm; short of breath, wheezing Past Zdnyqsd-Kttzlt-Yhylta Hx Patient Social History Tobacco Use?: No Smoking Status: Former Smoker Substance use?: No Alcohol Use?: Yes Alcohol Frequency: Once in a while Pt feels they are or have been: No Immunizations Up To Date Tetanus Booster (TDap): More than 5yrs PED Vaccines UTD: Yes Seasonal Allergies Seasonal Allergies: No Past Medical History Surgery/Hospitalization HX: lung lobectomy, hysterectomy, asthma, pneumonia, htn, r.a. 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 oz. 112.931304cr; 37.00 BMI Method:Stated General Appearance: WD/WN, mild distress Eyes: Bilateral Eye Normal Inspection, Bilateral Eye PERRL, Bilateral Eye EOMI HEENT: PERRL/EOMI, normal ENT inspection, TMs normal, pharynx normal Neck: non-tender, full range of motion, supple, normal inspection Respiratory: no accessory muscle use, respiratory distress (mild; no tripoding, pursed lip breathing. Mild wheezings on expiratory, bilateral. Mild prolonged expiratory phase. Oxygen saturation 96 to 97% on room air.), expiration Cardiovascular: normal peripheral pulses, regular rate, rhythm Gastrointestinal: normal bowel sounds, non tender, soft Extremities: normal range of motion, non-tender, normal capillary refill Neurologic/Psychiatric: alert, normal mood/affect, oriented x 3 Skin: normal color, warm/dry Progress/Results/Core Measures Suspected Sepsis SIRS Temperature: Pulse: 108 Respiratory Rate: 20 Laboratory Tests 06/04/21 20:43: White Blood Count 9.2 Blood Pressure 146 /84 Mean: 104 Laboratory Tests 06/04/21 20:43: Creatinine 0.98, Platelet Count 262, Total Bilirubin 0.3 Results/Orders Lab Results Laboratory Tests Test 06/04/21 20:43 Range/Units White Blood Count 9.2 4.3-11.0 10^3/uL Red Blood Count 4.45 3.80-5.11 10^6/uL Hemoglobin 13.6 11.5-16.0 g/dL Hematocrit 40 35-52 % Mean Corpuscular Volume 89 80-99 fL Mean Corpuscular Hemoglobin 31 25-34 pg Mean Corpuscular Hemoglobin Concent 34 32-36 g/dL Red Cell Distribution Width 13.3 10.0-14.5 % Platelet Count 262 130-400 10^3/uL Mean Platelet Volume 11.3 9.0-12.2 fL Immature Granulocyte % (Auto) 0 % Neutrophils (%) (Auto) 52 42-75 % Lymphocytes (%) (Auto) 35 12-44 % Monocytes (%) (Auto) 7 0-12 % Eosinophils (%) (Auto) 4 0-10 % Basophils (%) (Auto) 1 0-10 % Neutrophils # (Auto) 4.8 1.8-7.8 10^3/uL Lymphocytes # (Auto) 3.3 1.0-4.0 10^3/uL Monocytes # (Auto) 0.7 0.0-1.0 10^3/uL Eosinophils # (Auto) 0.4 H 0.0-0.3 10^3/uL Basophils # (Auto) 0.1 0.0-0.1 10^3/uL Immature Granulocyte # (Auto) 0.0 0.0-0.1 10^3/uL Sodium Level 143 135-145 MMOL/L Potassium Level 3.6 3.6-5.0 MMOL/L Chloride Level 105 98-107 MMOL/L Carbon Dioxide Level 23 21-32 MMOL/L Anion Gap 15 H 5-14 MMOL/L Blood Urea Nitrogen 16 7-18 MG/DL Creatinine 0.98 0.60-1.30 MG/DL Estimat Glomerular Filtration Rate 69 BUN/Creatinine Ratio 16 Glucose Level 134 H 70-105 MG/DL Calcium Level 9.0 8.5-10.1 MG/DL Corrected Calcium 9.0 8.5-10.1 MG/DL Total Bilirubin 0.3 0.1-1.0 MG/DL Aspartate Amino Transf (AST/SGOT) 14 5-34 U/L Alanine Aminotransferase (ALT/SGPT) 15 0-55 U/L Alkaline Phosphatase 86 40-136 U/L C-Reactive Protein High Sensitivity 0.39 0.00-0.50 MG/DL Total Protein 6.8 6.4-8.2 GM/DL Albumin 4.0 3.2-4.5 GM/DL My Orders Orders - KAYY REES Albuterol/Ipra Inhalation Soln (Duoneb I (06/04/21 21:15) Chest 1 View, Ap/Pa Only (06/04/21 21:02) Svn Small Volume Nebulizer (06/04/21 21:02) Cbc With Automated Diff (06/04/21 21:02) Comprehensive Metabolic Panel (06/04/21 21:02) Hs C Reactive Protein (06/04/21 21:02) Methylprednisolone Sod Succ (Solu-Medrol (06/04/21 22:15) Medications Given in ED Current Medications Medications Dose Ordered Sig/Gadiel Route Start Time Stop Time Status Last Admin Dose Admin Albuterol/ Ipratropium 3 ml ONCE ONCE INH 06/04/21 21:15 06/04/21 21:16 DC 06/04/21 21:24 3 ML Methylprednisolone Sodium Succinate 125 mg ONCE ONCE IVP 06/04/21 22:15 06/04/21 22:16 DC 06/04/21 22:12 125 MG Vital Signs/I&O 06/04/21 06/04/21 06/04/21 20:40 21:24 22:57 Temp 36.9 36.7 Pulse 108 74 Resp 20 16 B/P (MAP) 146/84 (104) 150/84 Pulse Ox 97 97 96 O2 Delivery Room Air Room Air Room Air Capillary Refill : Less Than 3 Seconds Blood Pressure Mean: 104 Progress Note : Time: 22:53 Progress Note I attest that I saw this patient alongside the medical student and agree with his documented history, physical exam and review of systems except as otherwise noted. Patient's breath sounds are significantly improved and she has no evidence of pneumonia. Plan to put her on azithromycin and a steroid Dosepak. Diagnostic Imaging Diagonstic Imaging: Xray Plain Films/CT/US/NM/MRI: chest Comments [facility]. [place], [place] NAME: LÓPEZ KAUFMAN [facility] REC#: [id number] PT STATUS: REG ER : 1965 PHYSICIAN: KAYY REES MD ADMIT DATE: 06/04/21/ER Signed Date of Exam:06/04/21 CHEST 1 VIEW, AP/PA ONLY EXAMINATION: Chest radiograph, portable AP view. DATE: 06/04/2021 9:13 PM INDICATION: 55-year-old female, shortness of breath. COMPARISON: November 26, 2019. FINDINGS: Heart size and mediastinal contours are unchanged. There is no identified pneumothorax. There is no large pleural effusion. There is no identified focal airspace consolidation. IMPRESSION: 1. No identified acute cardiopulmonary abnormality. Dictated by: Dictated on workstation # [id number] Dict: 06/04/212121 Trans: 06/04/212202 CVB [id number] Interpreted by: ADAM DIEHL MD Electronically signed by: ADAM DIEHL MD 06/04/212202 Reviewed: Reviewed by Me Departure Impression Primary Impression: Asthma exacerbation Qualified Codes: J45.901 - Unspecified asthma with (acute) exacerbation Disposition: 01 HOME, SELF-CARE Condition: Stable Departure-Patient Inst. Decision time for Depature: 22:48 Referrals: AUDREY ROSSI MD (PCP/Family) Primary Care Physician Patient Instructions: Medicines for Asthma Add. Discharge Instructions: Take the steroid Dosepak as prescribed. Start taking your albuterol [id number] every 4 hours with a breakthrough dose every 2 hours while awake for the next couple days until your symptoms improve. Consider chlorphentermine 4 mg every 4 hours as needed for nasal congestion or runny nose. Return to ER for significantly worsening symptoms. Azithromycin 2 tablets tomorrow followed by 1 tablet daily until they are gone. All discharge instructions reviewed with patient and/or family. Voiced understanding. Scripts Methylprednisolone (Medrol Dose pack) 4 Mg Tab 4 MG PO UD for 6 Days, #21 TAB 0 Refills as directed per dose pack Prov: KAYY REES 06/04/21 Azithromycin (Azithromycin) 250 Mg Tablet 250 MG PO UD, #6 TAB 0 Refills TAKE 2 TABLETS ON DAY ONE THEN TAKE 1 TABLET DAILY FOR FOUR MORE DAYS Prov: KAYY REES 06/04/21 KAYY REES Jun 04, 2021 21:24
[2021-06-04] MEDS ORDERED: methylPREDNISolone 125 MG (Solu-MEDROL) VIAL IVP ONE (22:15)
[2021-06-04] MEDS ORDERED: NF-METHYLP PO (22:55)
[2021-06-04] MEDS ORDERED: AZIT250T12 PO (22:55)
[2021-06-04 22:57] VITALS: BP 150/84
== END 2021-06-04 22:57 | disposition home or self-care (01) ==
LOC: EDUNIT# 20:42 → ER 20:46
DX: J45.901 Unspecified asthma with (acute) exacerbation (principal); Z87.891 Personal history of nicotine dependence
CPT/HCPCS: 36415; 71045; 80053; 85025; 86141; 94640

== ENCOUNTER → 2022-08-13 | Outpatient (CLI) | payer MEDICARE ==
[~2022-08-13] MED LIST changes: +AZIT250T12 PO; +NF-METHYLP PO
--- NOTE | 2022-08-16 09:46 | Diagnostic Imaging Report ---
INDICATION: Routine screening. COMPARISON: 04/16/2021. TECHNIQUE: 2D and 3D bilateral screening mammography was performed with CAD. FINDINGS: Scattered fibroglandular densities are identified bilaterally. There are benign calcifications in the left breast. No mass or malignant-appearing microcalcifications are seen. The axillae are unremarkable. IMPRESSION: No mammographic features suspicious for malignancy are identified. ACR BI-RADS Category 2: Benign findings. Result letter will be mailed to the patient. Note: At least 10% of breast cancer is not imaged by mammography. Dictated by: Dictated on workstation # [id number]
== END ==
LOC: RAD 11:15
PROVIDERS: ATTEND Family Medicine
DX: Z12.31 Encounter for screening mammogram for malignant neoplasm of breast (principal)
CPT/HCPCS: 77063; 77067